=== PATIENT | male | born 1975 | race Two or more races ===

== ENCOUNTER 2018-02-10 16:13 | Emergency (ER) | payer OTHER ==
[2018-02-10 16:30] VITALS: TEMP 97.9
[2018-02-10 16:30] LABS: Glucose,Whole Blood 97 mg/dL (75-99)
[2018-02-10] MEDS ORDERED: SODIUM CHLORIDE 0.9% 500 ML IV STA (16:31)
--- NOTE | 2018-02-10 17:27 | ED ---
Recheck HPI - General Chief Complaint: Recheck/Abnormal Lab/Rx Stated Complaint: Hypoglycemia Time Seen by Provider: 02/10/18 16:23 Source: patient, RN notes reviewed, old records reviewed Mode of arrival: EMS Limitations: no limitations - History of Present Illness Initial Comments: 42-year-old male present emergency department today after being found in the bathroom unresponsive. Apparently patient fell going to the bathroom. He is diabetic. He uses insulin. He was found to have a low blood sugar. He reports that he fell and hit his head. He does not remember this. He does have a contusion over the forehead. He has had no other symptoms. He is feeling somewhat better at this time after receiving an amp of D50 from EMS. Blood sugar on arrival here is 97. Given a sandwich. - Related Data Home Medications Medication Instructions Recorded Confirmed INSULIN LISPRO (HumaLOG) [HumaLOG] 16 units SQ AC-TID 02/10/18 02/10/18 INSULIN LISPRO (HumaLOG) [HumaLOG] See Protocol SQ AC-TID 02/10/18 02/10/18 Insulin Glargine,Hum.rec.anlog 100 unit SQ HS 02/10/18 02/10/18 [Basaglar Kwikpen U-100] metFORMIN HCL [Glucophage] 500 mg PO BID 02/10/18 02/10/18 Allergies Allergy/AdvReac Type Severity Reaction Status Date / Time No Known Allergies Allergy Verified 02/10/18 17:19 Review of Systems ROS Statement: Those systems with pertinent positive or pertinent negative responses have been documented in the HPI. ROS Other: All systems not noted in ROS Statement are negative. Past Medical History Past Medical History: Diabetes Mellitus, Liver Disease Additional Past Medical History / Comment(s): liver cirrhosis, pancreatitis History of Any Multi-Drug Resistant Organisms: None Reported Past Surgical History: Orthopedic Surgery Past Psychological History: No Psychological Hx Reported Smoking Status: Never smoker Past Alcohol Use History: None Reported Past Drug Use History: None Reported General Exam - General Exam Comments Initial Comments: 42-year-old male. Patient is alert. Limitations: no limitations General appearance: alert, in no apparent distress Head exam: Present: atraumatic, normocephalic, normal inspection, other ( Incision over the forehead.) Eye exam: Present: normal appearance, PERRL, EOMI. Absent: scleral icterus, conjunctival injection, periorbital swelling ENT exam: Present: normal exam, mucous membranes moist Neck exam: Present: normal inspection. Absent: tenderness, meningismus, lymphadenopathy Respiratory exam: Present: normal lung sounds bilaterally. Absent: respiratory distress, wheezes, rales, rhonchi, stridor Cardiovascular Exam: Present: regular rate, normal rhythm, normal heart sounds. Absent: systolic murmur, diastolic murmur, rubs, gallop, clicks GI/Abdominal exam: Present: soft, normal bowel sounds. Absent: distended, tenderness, guarding, rebound, rigid Extremities exam: Present: normal inspection, full ROM, normal capillary refill. Absent: tenderness, pedal edema, joint swelling, calf tenderness Back exam: Present: normal inspection Neurological exam: Present: alert, oriented X3, CN II-XII intact Psychiatric exam: Present: normal affect, normal mood Skin exam: Present: warm, dry, intact, normal color. Absent: rash Course Vital Signs 02/10/18 02/10/18 02/10/18 16:22 18:41 19:56 Temperature 97.9 F 97.9 F Pulse Rate 84 80 70 Respiratory 16 16 18 Rate Blood Pressure 123/79 120/66 135/92 O2 Sat by Pulse 98 97 100 Oximetry Medical Decision Making - Medical Decision Making 42-year-old male with type 2 diabetes on insulin and metformin presents emergency Department after a low blood sugar episode. He was found on the floor of his job after going to the bathroom. Patient does have a contusion over his forehead. He does not remember falling what happened prior to being in the ambulance. MSK midabdomen amp of D50. Blood sugar 97. Further workup was initiated this could be related to another cell causes from patient's syncopal episode besides low blood sugar. We troponin was negative. EKG shows no acute abdomen or maladies. CT scan was performed and negative for any acute process. Patient does have history of liver disease. Low platelets and elevated liver enzymes. He does have a history of cirrhosis. He reports that he is aware of the symptoms. He follows with his PCP in regards to this. The cement discussed he is stable for discharge. Discussed he needs follow-up with PCP in regards to low blood sugars is also cirrhosis and chronically low platelets. Patient agrees to this. Discussed changing his insulin routine at this time to 10-12 units plus sliding scale for mealtimes and senna 15 units. Patient agrees to treatment plan will comply. Return parameters were discussed. - Lab Data Result diagrams: 02/10/18 17:31 02/10/18 17:31 Lab Results 02/10/18 02/10/18 02/10/18 Range/Units 16:28 17:31 17:31 WBC 2.8 L (3.8-10.6) k/uL RBC 3.61 L (4.30-5.90) m/uL Hgb 12.4 L (13.0-17.5) gm/dL Hct 36.6 L (39.0-53.0) % MCV 101.4 H (80.0-100.0) fL MCH 34.2 (25.0-35.0) pg MCHC 33.8 (31.0-37.0) g/dL RDW 14.4 (11.5-15.5) % Plt Count 36 L* (150-450) k/uL Neutrophils % 60 % Lymphocytes % 24 % Monocytes % 10 % Eosinophils % 1 % Basophils % 1 % Neutrophils # 1.7 (1.3-7.7) k/uL Lymphocytes # 0.7 L (1.0-4.8) k/uL Monocytes # 0.3 (0-1.0) k/uL Eosinophils # 0.0 (0-0.7) k/uL Basophils # 0.0 (0-0.2) k/uL Macrocytosis Slight Sodium 143 (137-145) mmol/L Potassium 3.7 (3.5-5.1) mmol/L Chloride 108 H (98-107) mmol/L Carbon Dioxide 20 L (22-30) mmol/L Anion Gap 15 mmol/L BUN 9 (9-20) mg/dL Creatinine 0.30 L (0.66-1.25) mg/dL Est GFR (CKD-EPI)AfAm >90 (>60 ml/min/1.73 sqM) Est GFR (CKD-EPI)NonAf >90 (>60 ml/min/1.73 sqM) Glucose 43 L* (74-99) mg/dL POC Glucose (mg/dL) 97 (75-99) mg/dL POC Glu Contracting Analyst ID Calcium 9.1 (8.4-10.2) mg/dL Magnesium 1.5 L (1.6-2.3) mg/dL Total Bilirubin 1.1 (0.2-1.3) mg/dL AST 143 H (17-59) U/L ALT 82 H (21-72) U/L Alkaline Phosphatase 208 H (38-126) U/L Troponin I (0.000-0.034) ng/mL Total Protein 7.1 (6.3-8.2) g/dL Albumin 3.8 (3.5-5.0) g/dL 02/10/18 02/10/18 02/10/18 Range/Units 17:31 18:08 18:30 WBC (3.8-10.6) k/uL RBC (4.30-5.90) m/uL Hgb (13.0-17.5) gm/dL Hct (39.0-53.0) % MCV (80.0-100.0) fL MCH (25.0-35.0) pg MCHC (31.0-37.0) g/dL RDW (11.5-15.5) % Plt Count (150-450) k/uL Neutrophils % % Lymphocytes % % Monocytes % % Eosinophils % % Basophils % % Neutrophils # (1.3-7.7) k/uL Lymphocytes # (1.0-4.8) k/uL Monocytes # (0-1.0) k/uL Eosinophils # (0-0.7) k/uL Basophils # (0-0.2) k/uL Macrocytosis Sodium (137-145) mmol/L Potassium (3.5-5.1) mmol/L Chloride (98-107) mmol/L Carbon Dioxide (22-30) mmol/L Anion Gap mmol/L BUN (9-20) mg/dL Creatinine (0.66-1.25) mg/dL Est GFR (CKD-EPI)AfAm (>60 ml/min/1.73 sqM) Est GFR (CKD-EPI)NonAf (>60 ml/min/1.73 sqM) Glucose (74-99) mg/dL POC Glucose (mg/dL) 58 L 73 L (75-99) mg/dL POC Glu Contracting Analyst ID Anamaria Alcaraz Calcium (8.4-10.2) mg/dL Magnesium (1.6-2.3) mg/dL Total Bilirubin (0.2-1.3) mg/dL AST (17-59) U/L ALT (21-72) U/L Alkaline Phosphatase (38-126) U/L Troponin I <0.012 (0.000-0.034) ng/mL Total Protein (6.3-8.2) g/dL Albumin (3.5-5.0) g/dL 02/10/18 Range/Units 19:16 WBC (3.8-10.6) k/uL RBC (4.30-5.90) m/uL Hgb (13.0-17.5) gm/dL Hct (39.0-53.0) % MCV (80.0-100.0) fL MCH (25.0-35.0) pg MCHC (31.0-37.0) g/dL RDW (11.5-15.5) % Plt Count (150-450) k/uL Neutrophils % % Lymphocytes % % Monocytes % % Eosinophils % % Basophils % % Neutrophils # (1.3-7.7) k/uL Lymphocytes # (1.0-4.8) k/uL Monocytes # (0-1.0) k/uL Eosinophils # (0-0.7) k/uL Basophils # (0-0.2) k/uL Macrocytosis Sodium (137-145) mmol/L Potassium (3.5-5.1) mmol/L Chloride (98-107) mmol/L Carbon Dioxide (22-30) mmol/L Anion Gap mmol/L BUN (9-20) mg/dL Creatinine (0.66-1.25) mg/dL Est GFR (CKD-EPI)AfAm (>60 ml/min/1.73 sqM) Est GFR (CKD-EPI)NonAf (>60 ml/min/1.73 sqM) Glucose (74-99) mg/dL POC Glucose (mg/dL) 121 H (75-99) mg/dL POC Glu Contracting Analyst ID Arft, Bill Calcium (8.4-10.2) mg/dL Magnesium (1.6-2.3) mg/dL Total Bilirubin (0.2-1.3) mg/dL AST (17-59) U/L ALT (21-72) U/L Alkaline Phosphatase (38-126) U/L Troponin I (0.000-0.034) ng/mL Total Protein (6.3-8.2) g/dL Albumin (3.5-5.0) g/dL 02/10/18 19:39 EKG performed at 1650 shows a sinus rhythm with sinus arrhythmia. Normal EKG. Ventricular rate of 69 bpm. SC interval 168 ms. QRS duration 76. QT QTc is 446/477 ms. - Radiology Data Radiology results: report reviewed CT brain and C-spine is negative for any acute process. Chest x-ray shows low respiratory volume. No evidence of any other acute medical problem changes. Disposition Clinical Impression: Hypoglycemia, Thrombocytopenia, Macrocytic anemia Disposition: HOME SELF-CARE Condition: Good Additional Instructions: Patient has a follow-up with primary care provider regards low platelet count macrocytic anemia. Recommended taking a daily multivitamin. Patient should adjust sliding scale. Recommended maybe taking 12-10 units of insulin ingesting with sliding scale. Return to the emergency department if any alarming signs or symptoms occur. Is patient prescribed a controlled substance at d/c from ED?: No If prescribed controlled substance>3 days was MAPS reviewed?: No When asked, does pt state using other controlled substances?: No Referrals: Mike Nickerson DO [Primary Care Provider] - 1-2 days Time of Disposition: 19:32
[2018-02-10 17:57] LABS: Eosinophils % (A) 1 %; Macrocytosis Slight
[2018-02-10 18:02] LABS: Basophils % (A) 1 %; HCT 36.6 % (39.0-53.0); HGB 12.4 gm/dL (13.0-17.5); Lymphocytes # (A) 0.7 k/uL (1.0-4.8); Lymphocytes % (A) 24 %; MCH 34.2 pg (25.0-35.0); MCHC 33.8 g/dL (31.0-37.0); MCV 101.4 fL (80.0-100.0); Mean Platelet Volume 7.7; Monocytes # (A) 0.3 k/uL (0-1.0); Monocytes % (A) 10 %; Neutrophils # (A) 1.7 k/uL (1.3-7.7); Neutrophils % (A) 60 %; RBC 3.61 m/uL (4.30-5.90); RDW 14.4 % (11.5-15.5); WBC 2.8 k/uL (3.8-10.6)
[2018-02-10 18:03] LABS: ALT 82 U/L (21-72); AST 143 U/L (17-59); Albumin 3.8 g/dL (3.5-5.0); Alkaline Phosphatase 208 U/L (38-126); Anion Gap 15 mmol/L; Blood Urea Nitrogen 9 mg/dL (9-20); Calcium 9.1 mg/dL (8.4-10.2); Carbon Dioxide 20 mmol/L (22-30); Chloride 108 mmol/L (98-107); Magnesium 1.5 mg/dL (1.6-2.3); Potassium 3.7 mmol/L (3.5-5.1); Sodium 143 mmol/L (137-145); Total Bilirubin 1.1 mg/dL (0.2-1.3); Total Protein 7.1 g/dL (6.3-8.2)
[2018-02-10 18:06] LABS: Glucose 43 mg/dL (74-99)
[2018-02-10 18:10] LABS: Glucose,Whole Blood 58 mg/dL (75-99)
[2018-02-10 18:11] LABS: Platelet Count 36 k/uL (150-450)
--- NOTE | 2018-02-10 18:27 | CT ---
EXAMINATION TYPE: CT brain wo con DATE OF EXAM: 02/10/2018 COMPARISON: NONE HISTORY: 42-year-old male complains of syncopal episode and abrasion midline frontal bone. TECHNIQUE: Examination was done in axial plane without intravenous contrast. Coronal and sagittal r econstructions performed. CT DLP: 1082 mGycm Automated exposure control for dose reduction was used. FINDINGS: There is no evidence of acute intracranial hemorrhage, acute ischemic changes, mass, mass-effect, or extra-axial fluid collection. There is no effacement of cerebral sulci or basal subarachnoid cister ns. There is no hydrocephalus. There is no midline shift. Martel-white matter distinction is preserv ed. Paranasal sinuses and mastoid air cells are well pneumatized. Orbits and globes are intact. No calvar ial fracture. IMPRESSION: No acute intracranial abnormality seen.
[2018-02-10 18:31] LABS: Glucose,Whole Blood 73 mg/dL (75-99)
--- NOTE | 2018-02-10 18:56 | XR ---
EXAMINATION TYPE: XR chest 2V DATE OF EXAM: 02/10/2018 COMPARISON: None HISTORY: 42-year-old male with syncope TECHNIQUE: Frontal and lateral views FINDINGS: Heart upper limits of normal in size. Mild hypoventilatory changes with crowded vascular markings. Mi ld interstitial prominence as a chronic appearance. Some strandy atelectasis at the left base. No con solidation or pleural effusion. IMPRESSION: Hypoventilatory and some chronic appearing changes. No acute process seen.
[2018-02-10 19:18] LABS: Glucose,Whole Blood 121 mg/dL (75-99)
[2018-02-10 19:57] VITALS: BP 135/92; PULSE 70; RESP 18
[2018-02-11 01:03] LABS: Hemoglobin A1C 8.2 % (4.0-6.0)
== END 2018-02-10 19:57 | disposition home or self-care (01) ==
LOC: EC 16:13 → SUPCPDRO 16:13 → EC 19:57
DX: S09.90XA Unspecified injury of head, initial encounter (principal); E11.649 Type 2 diabetes mellitus with hypoglycemia without coma; D69.6 Thrombocytopenia, unspecified; D53.9 Nutritional anemia, unspecified; Z79.4 Long term (current) use of insulin; W19.XXXA Unspecified fall, initial encounter; Y92.009 Unspecified place in unspecified non-institutional (private) residence as the place of occurrence of the external cause
CPT/HCPCS: 36415; 70450; 71046; 80053; 83036; 83735; 84484; 85025; 93005; 96360; 96361; 99285

== ENCOUNTER 2018-06-13 07:11 | Emergency (ER) | payer OTHER ==
[2018-06-13 07:25] VITALS: RESP 18
[2018-06-13] MEDS ORDERED: SODIUM CHLORIDE 0.9% 1,000 ML IV STA (07:29)
--- NOTE | 2018-06-13 07:48 | ED ---
Abdominal Pain HPI - General Chief Complaint: Abdominal Pain Stated Complaint: Stomach pain Time Seen by Provider: 06/13/18 07:27 Source: patient, RN notes reviewed, old records reviewed Mode of arrival: ambulatory Limitations: no limitations - History of Present Illness Initial Comments: Patient is a 43-year-old male presents emergency department today with chief complaint of diarrhea, and left lower quadrant abdominal pain for the past week. 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 He does occasionally drink from a garden hose. No bloody stools. He states these had no fevers or chills. Denies any nausea or vomiting. Patient states that he's had increased gas as well. He denies any chest pain, shortness of breath. He denies any back pain. - Related Data Home Medications Medication Instructions Recorded Confirmed INSULIN LISPRO (HumaLOG) [HumaLOG] 16 units SQ AC-TID 02/10/18 02/10/18 INSULIN LISPRO (HumaLOG) [HumaLOG] See Protocol SQ AC-TID 02/10/18 02/10/18 Insulin Glargine,Hum.rec.anlog 100 unit SQ HS 02/10/18 02/10/18 [Basaglar Kwikpen U-100] metFORMIN HCL [Glucophage] 500 mg PO BID 02/10/18 02/10/18 Allergies Allergy/AdvReac Type Severity Reaction Status Date / Time No Known Allergies Allergy Verified 06/13/18 07:25 Review of Systems ROS Statement: Those systems with pertinent positive or pertinent negative responses have been documented in the HPI. ROS Other: All systems not noted in ROS Statement are negative. Past Medical History Past Medical History: Diabetes Mellitus, Liver Disease Additional Past Medical History / Comment(s): liver cirrhosis, pancreatitis, hep C History of Any Multi-Drug Resistant Organisms: None Reported Past Surgical History: Orthopedic Surgery Past Psychological History: No Psychological Hx Reported Smoking Status: Never smoker Past Alcohol Use History: None Reported Past Drug Use History: None Reported General Exam - General Exam Comments Initial Comments: 43-year-old male. Alert and oriented. No acute distress. Limitations: no limitations General appearance: alert, in no apparent distress Head exam: Present: atraumatic, normocephalic, normal inspection Eye exam: Present: normal appearance, PERRL, EOMI. Absent: scleral icterus, conjunctival injection, periorbital swelling ENT exam: Present: normal exam, mucous membranes moist Neck exam: Present: normal inspection. Absent: tenderness, meningismus, lymphadenopathy Respiratory exam: Present: normal lung sounds bilaterally. Absent: respiratory distress, wheezes, rales, rhonchi, stridor Cardiovascular Exam: Present: regular rate, normal rhythm, normal heart sounds. Absent: systolic murmur, diastolic murmur, rubs, gallop, clicks GI/Abdominal exam: Present: soft, tenderness (Left lower quadrant tenderness), normal bowel sounds. Absent: distended, guarding, rebound, rigid Extremities exam: Present: normal inspection Back exam: Present: normal inspection Neurological exam: Present: alert, oriented X3, CN II-XII intact Psychiatric exam: Present: normal affect, normal mood Skin exam: Present: warm, dry, intact, normal color. Absent: rash Course Vital Signs 06/13/18 07:21 Temperature 98.2 F Pulse Rate 82 Respiratory 18 Rate Blood Pressure 116/84 O2 Sat by Pulse 100 Oximetry Medical Decision Making - Medical Decision Making Patient's a 43-year-old male with a history of diarrhea for the past week. He reports some lower left-sided abdominal pain and tenderness. He does have a history of cirrhosis from EtOH and hepatitis C. Patient reports he has not followed up with GI specialist regards to diagnosis and treatment for hep C. Patient labwork was reviewed today. He does seem to be pancytopenic.White blood cell count is 2.0. Red blood cell count 3.61. Hemoglobin of 12.6. Platelet count is 33. INR is 1.3. Potassium of 3.4. Skin infections preserved BUN of 9 creatinine 3.8. Blood sugars 174. He is diabetic. AST is 107. ALT 68. ALP is 2:30. He has low protein of 5.6. Patient's urinalysis is negative for any acute process. He did give us a stool sample. It's a negative for blood. Patient's stool did seem to be white in color. Likely reflection from cirrhosis. With the abdominal tenderness we did complete a computed tomography scan. Computed tomography scan shows evidence of cirrhosis and sequela of cirrhosis with splenomegaly and renal hypertension. There is also some evidence of enteritis. I discussed at this time the Patient is to follow-up with GI specialist in regards to hepatitis C, as well as oncologist and primary care physician. Patient needs to have further evaluation due to the pancytopenia. Patient agrees to treatment plan. Given the fact the left distal sample wait for any positive cultures to start the Patient on antibiotic. Patient agrees to treatment plan will comply. Return parameters were discussed. - Lab Data Result diagrams: 06/13/18 08:00 06/13/18 08:00 Lab Results 06/13/18 06/13/18 06/13/18 Range/Units 08:00 08:00 08:00 WBC 2.0 L (3.8-10.6) k/uL RBC 3.61 L (4.30-5.90) m/uL Hgb 12.6 L (13.0-17.5) gm/dL Hct 37.5 L (39.0-53.0) % MCV 103.7 H (80.0-100.0) fL MCH 35.0 (25.0-35.0) pg MCHC 33.7 (31.0-37.0) g/dL RDW 16.0 H (11.5-15.5) % Plt Count 33 L (150-450) k/uL Neutrophils % (Manual) 27 % Lymphocytes % (Manual) 45 % Monocytes % (Manual) 25 % Eosinophils % (Manual) 3 % Neutrophils # (Manual) 0.54 L (1.3-7.7) k/uL Lymphocytes # (Manual) 0.90 L (1.0-4.8) k/uL Monocytes # (Manual) 0.50 (0-1.0) k/uL Eosinophils # (Manual) 0.06 (0-0.7) k/uL Nucleated RBCs 0 (0-0) /100 WBC Manual Slide Review Performed Anisocytosis Slight Macrocytosis Moderate PT 11.9 (9.0-12.0) sec INR 1.3 H (<1.2) APTT 24.0 (22.0-30.0) sec Sodium 142 (137-145) mmol/L Potassium 3.4 L (3.5-5.1) mmol/L Chloride 111 H (98-107) mmol/L Carbon Dioxide 23 (22-30) mmol/L Anion Gap 8 mmol/L BUN 9 (9-20) mg/dL Creatinine 0.38 L (0.66-1.25) mg/dL Est GFR (CKD-EPI)AfAm >90 (>60 ml/min/1.73 sqM) Est GFR (CKD-EPI)NonAf >90 (>60 ml/min/1.73 sqM) Glucose 174 H (74-99) mg/dL Calcium 8.3 L (8.4-10.2) mg/dL Total Bilirubin 1.1 (0.2-1.3) mg/dL AST 107 H (17-59) U/L ALT 68 (21-72) U/L Alkaline Phosphatase 230 H (38-126) U/L Total Protein 5.6 L (6.3-8.2) g/dL Albumin 2.8 L (3.5-5.0) g/dL Amylase 43 (30-110) U/L Lipase 54 (23-300) U/L Urine Color Urine Appearance (Clear) Urine pH (5.0-8.0) Ur Specific Sandborn (1.001-1.035) Urine Protein (Negative) Urine Glucose (UA) (Negative) Urine Ketones (Negative) Urine Blood (Negative) Urine Nitrite (Negative) Urine Bilirubin (Negative) Urine Urobilinogen (<2.0) mg/dL Ur Leukocyte Esterase (Negative) Urine RBC (0-5) /hpf Urine WBC (0-5) /hpf Calcium Oxalate Crystal (None) /hpf Urine Mucus (None) /hpf Stool Occult Blood (Negative) 06/13/18 06/13/18 Range/Units 08:00 08:00 WBC (3.8-10.6) k/uL RBC (4.30-5.90) m/uL Hgb (13.0-17.5) gm/dL Hct (39.0-53.0) % MCV (80.0-100.0) fL MCH (25.0-35.0) pg MCHC (31.0-37.0) g/dL RDW (11.5-15.5) % Plt Count (150-450) k/uL Neutrophils % (Manual) % Lymphocytes % (Manual) % Monocytes % (Manual) % Eosinophils % (Manual) % Neutrophils # (Manual) (1.3-7.7) k/uL Lymphocytes # (Manual) (1.0-4.8) k/uL Monocytes # (Manual) (0-1.0) k/uL Eosinophils # (Manual) (0-0.7) k/uL Nucleated RBCs (0-0) /100 WBC Manual Slide Review Anisocytosis Macrocytosis PT (9.0-12.0) sec INR (<1.2) APTT (22.0-30.0) sec Sodium (137-145) mmol/L Potassium (3.5-5.1) mmol/L Chloride (98-107) mmol/L Carbon Dioxide (22-30) mmol/L Anion Gap mmol/L BUN (9-20) mg/dL Creatinine (0.66-1.25) mg/dL Est GFR (CKD-EPI)AfAm (>60 ml/min/1.73 sqM) Est GFR (CKD-EPI)NonAf (>60 ml/min/1.73 sqM) Glucose (74-99) mg/dL Calcium (8.4-10.2) mg/dL Total Bilirubin (0.2-1.3) mg/dL AST (17-59) U/L ALT (21-72) U/L Alkaline Phosphatase (38-126) U/L Total Protein (6.3-8.2) g/dL Albumin (3.5-5.0) g/dL Amylase (30-110) U/L Lipase (23-300) U/L Urine Color Yellow Urine Appearance Cloudy (Clear) Urine pH 5.5 (5.0-8.0) Ur Specific Sandborn 1.022 (1.001-1.035) Urine Protein Trace H (Negative) Urine Glucose (UA) Negative (Negative) Urine Ketones Negative (Negative) Urine Blood Negative (Negative) Urine Nitrite Negative (Negative) Urine Bilirubin Negative (Negative) Urine Urobilinogen 4.0 (<2.0) mg/dL Ur Leukocyte Esterase Negative (Negative) Urine RBC <1 (0-5) /hpf Urine WBC 2 (0-5) /hpf Calcium Oxalate Crystal Occasional H (None) /hpf Urine Mucus Few H (None) /hpf Stool Occult Blood Negative (Negative) - Radiology Data Radiology results: report reviewed CT shows cirrhotic appearance of the liver. Further clinical correlation work up is recommended. No findings for a patio 1. Additional finding should just portal venous hypertension given splenomegaly and mild abdominal pelvic ascites. Probable splenorenal shunt. There is also some prominent fluid- filled small bowel loops within the right side of the abdomen. Likely enteritis. Disposition Clinical Impression: Cirrhosis, Pancytopenia, Splenomegaly, Enteritis Disposition: HOME SELF-CARE Condition: Good Instructions: Cirrhosis (ED), Pancytopenia (DC) Additional Instructions: Patient has a close follow-up with primary care physician. Return to the emergency department if any alarming signs or symptoms occur. Patient should follow-up with GI specialist regards to treatment for hepatitis C as well as following up with blood specialist. Is patient prescribed a controlled substance at d/c from ED?: No Referrals: Mike Nickerson DO [Primary Care Provider] - 1-2 days Jaskaran Palma MD [STAFF PHYSICIAN] - 1-2 days Nathalia Trevino MD [STAFF PHYSICIAN] - 1-2 days Time of Disposition: 10:44
[2018-06-13 08:39] LABS: Appearance,Urine Cloudy (Clear); Bilirubin,Urine Negative (Negative); Blood,Urine Negative (Negative); Calcium Oxalate Crystals,Urine Occasional /hpf; Color,Urine Yellow; Glucose,Urine (UA) Negative (Negative); Ketones,Urine Negative (Negative); Leukocyte Esterase,Urine Negative (Negative); Mucus,Urine Few /hpf; Nitrite,Urine Negative (Negative); PH, Urine 5.5 (5.0-8.0); Protein,Urine Trace (Negative); RBC,Urine <1 /hpf (0-5); Specific Gravity,Urine 1.022 (1.001-1.035); WBC,Urine 2 /hpf (0-5)
--- NOTE | 2018-06-13 08:39 | XR ---
EXAMINATION TYPE: XR KUB DATE OF EXAM: 06/13/2018 CLINICAL DATA: 43-year-old male with lower abdominal pain, PHH COMPARISON: None FINDINGS: Lung bases are clear. No evidence for free intraperitoneal air. No dilated small bowel or air-fluid levels. Scattered air and stool seen throughout the colon extendi ng distally into the rectum. There is moderate stool burden. No suspicious calcifications identified. IMPRESSION: 1. Moderate stool burden. Correlate for constipation. 2.No evidence of bowel obstruction or free intraperitoneal air.
[2018-06-13 08:47] LABS: ALT 68 U/L (21-72); AST 107 U/L (17-59); Albumin 2.8 g/dL (3.5-5.0); Alkaline Phosphatase 230 U/L (38-126); Amylase 43 U/L (30-110); Anion Gap 8 mmol/L; Blood Urea Nitrogen 9 mg/dL (9-20); Calcium 8.3 mg/dL (8.4-10.2); Carbon Dioxide 23 mmol/L (22-30); Chloride 111 mmol/L (98-107); Glucose 174 mg/dL (74-99); INR 1.3 (<1.2); Lipase 54 U/L (23-300); Potassium 3.4 mmol/L (3.5-5.1); Prothrombin Time 11.9 sec (9.0-12.0); Sodium 142 mmol/L (137-145); Total Bilirubin 1.1 mg/dL (0.2-1.3); Total Protein 5.6 g/dL (6.3-8.2)
[2018-06-13 09:01] LABS: Anisocytosis Slight; HCT 37.5 % (39.0-53.0); HGB 12.6 gm/dL (13.0-17.5); MCHC 33.7 g/dL (31.0-37.0); MCV 103.7 fL (80.0-100.0); Macrocytosis Moderate; Mean Platelet Volume 8.9; RBC 3.61 m/uL (4.30-5.90)
[2018-06-13 09:18] LABS: Eosinophils # (M) 0.06 k/uL (0-0.7); Neutrophils # (M) 0.54 k/uL (1.3-7.7); Neutrophils % (M) 27 %; Nucleated Red Blood Cells 0 /100 WBC (0-0); Total Cells Counted 100
[2018-06-13 09:19] LABS: Platelet Count 33 k/uL (150-450)
--- NOTE | 2018-06-13 10:04 | CT ---
EXAMINATION TYPE: CT abdomen pelvis w con DATE OF EXAM: 06/13/2018 COMPARISON: NONE HISTORY: 43-year-old male LLQ pain, with diarrhea TECHNIQUE: Contiguous axial scanning of the abdomen and pelvis following administration of 100 ml Iso yaima 300 IV contrast. Delayed images through the kidneys and coronal/sagittal reconstructions perform ed. CT DLP: 1286 mGycm Automated exposure control for dose reduction was used. FINDINGS: Heart normal size without pericardial effusion. Some strandy areas of atelectasis in the lower lungs without pleural effusion. There may be subtle contour nodularity of the liver which is upper limits of normal in size at 17.2 c m. No focal liver lesion is identified. Circumferential gallbladder wall thickening without abnormal gallbladder distention. Portal venous system appears patent. No biliary ductal dilatation. Tiny hiatal hernia. Mild splenomegaly at 14.4 cm possible splenorenal shunt. Trace upper abdominal ascites fluid. Mildly enlarged portacaval and ryan hepatic lymph nodes measuring up to 1.5 cm likely reactive. Num erous nonenlarged retroperitoneal lymph nodes. No dilated small bowel or free air. Prominent fluid-filled small bowel loops are present in the right side of the abdomen. Moderate fatty stool is present. Bladder nondistended. No pelvic lymphadenopathy seen. There is [id number] ascites fluid trackin g down into the pelvis. Bones: Mild degenerative changes at the hips. There is right L5 hemisacralization noted and degenerat ernesto disc disease at the level above at L4-L5. Mild degenerative disc disease visualized lower thoraci c spine as well. IMPRESSION: 1. CIRRHOTIC APPEARANCE TO THE LIVER. FURTHER CLINICAL CORRELATION AND WORKUP IS RECOMMENDED. NO CONV INCING FINDINGS OF HEPATOMA. 2. ADDITIONAL FINDINGS SUGGEST PORTAL VENOUS HYPERTENSION GIVEN SPLENOMEGALY (14.4 CM) AND MILD ABDOM INOPELVIC ASCITES. PROBABLE SPLENORENAL SHUNT. 3. SOME PROMINENT FLUID-FILLED SMALL BOWEL LOOPS IN THE RIGHT SIDE OF THE ABDOMEN. POSSIBLE ENTERIT IS.
[2018-06-13 11:05] VITALS: BP 124/92; PULSE 77; TEMP 97.8
== END 2018-06-13 11:07 | disposition home or self-care (01) ==
LOC: EC 07:11
DX: K74.60 Unspecified cirrhosis of liver (principal); D61.818 Other pancytopenia; R16.1 Splenomegaly, not elsewhere classified; K52.9 Noninfective gastroenteritis and colitis, unspecified; E11.9 Type 2 diabetes mellitus without complications; Z86.19 Personal history of other infectious and parasitic diseases; Z79.4 Long term (current) use of insulin
CPT/HCPCS: 36415; 80053; 82150; 83690; 85025; 85610; 85730; 82272; 81001; 87045; 83630; 87046; 74018; 74177; 99285; 96360; Q9967

== ENCOUNTER → 2018-07-11 | Outpatient (CLI) | payer OTHER ==
--- NOTE | 2018-07-11 07:43 | US ---
EXAMINATION TYPE: US liver DATE OF EXAM: 07/11/2018 COMPARISON: CT dated 06/13/2018 CLINICAL HISTORY: R94.5 Abnormal results of liver function studies. EXAM MEASUREMENTS: Liver Length: 10.5 x 4.7 x 6.1 cm Gallbladder Wall: 0.5 cm CBD: 0.3 cm Right Kidney: 10.5 x 4.7 x 6.1 cm Pancreas: Obscured Liver: Increased attenuation with coarsened echotexture diffusely that limits evaluation for underly ing hepatic masses, upper limits of normal in size Gallbladder: thickened wall, stone Evidence for sonographic Mina's sign: No CBD: wnl Right Kidney: Inferior pole obscured by overlying bowel gas IMPRESSION: 1. Gallbladder findings that likely relate to adjacent hepatocellular disease such as gallbladder wal l thickening and pericholecystic fluid with cholelithiasis seen. Alternatively this could relate to d eveloping cholecystitis and therefore correlation with serum laboratory values trended and focal pain is recommended. 2. Coarsened echotexture of the hepatic parenchyma relating to the patient's known underlying hepatoc ellular disease. No focal masses seen on today's examination. 3. Obscuration of the pancreas by overlying bowel gas.
[2018-07-11 08:01] LABS: HCT 46.1 % (39.0-53.0); HGB 15.1 gm/dL (13.0-17.5); MCH 34.9 pg (25.0-35.0); MCHC 32.8 g/dL (31.0-37.0); MCV 106.6 fL (80.0-100.0); Macrocytosis Moderate; Mean Platelet Volume 8.5; RBC 4.33 m/uL (4.30-5.90); RDW 13.9 % (11.5-15.5); WBC 2.3 k/uL (3.8-10.6)
[2018-07-11 08:03] LABS: Platelet Count 51 k/uL (150-450)
[2018-07-11 08:14] LABS: ALT 138 U/L (21-72); AST 232 U/L (17-59); Alkaline Phosphatase 407 U/L (38-126); Anion Gap 12 mmol/L; Blood Urea Nitrogen 13 mg/dL (9-20); Calcium 9.9 mg/dL (8.4-10.2); Carbon Dioxide 31 mmol/L (22-30); Chloride 93 mmol/L (98-107); Glucose 456 mg/dL (74-99); Potassium 5.4 mmol/L (3.5-5.1); Sodium 136 mmol/L (137-145); Total Bilirubin 2.3 mg/dL (0.2-1.3); Total Protein 7.4 g/dL (6.3-8.2)
[2018-07-11 09:10] LABS: Band Neutrophils % 1 %; Eosinophils # (M) 0.05 k/uL (0-0.7); Lymphocytes # (M) 0.99 k/uL (1.0-4.8); Monocytes # (M) 0.35 k/uL (0-1.0); Neutrophils % (M) 39 %; Nucleated Red Blood Cells 0 /100 WBC (0-0); Poikilocytosis (M) Present; Total Cells Counted 100
[2018-07-11 16:21] LABS: Iron Saturation 97.11 (15.00-50.00)
[2018-07-11 16:28] LABS: Alpha Fetoprotein, Tumor Mkr 6.7 ng/mL (0.0-7.9)
== END | disposition home or self-care (01) ==
LOC: RADUSWWP 06:42
PROVIDERS: ATTEND Internal Medicine Gastroenterology
DX: K80.20 Calculus of gallbladder without cholecystitis without obstruction (principal); K82.8 Other specified diseases of gallbladder; K76.9 Liver disease, unspecified; R94.5 Abnormal results of liver function studies; Z86.19 Personal history of other infectious and parasitic diseases
CPT/HCPCS: 36415; 76705; 80053; 82105; 82728; 83540; 83550; 85025; 86038; 87522

== ENCOUNTER 2018-08-04 20:56 | Emergency (ER) | payer OTHER ==
[2018-08-04 21:04] VITALS: TEMP 97.7
--- NOTE | 2018-08-04 21:58 | ED ---
General Adult HPI - General Chief complaint: Extremity Problem,Nontraumatic Stated complaint: knee pain Time Seen by Provider: 08/04/18 21:26 Source: patient Mode of arrival: ambulatory Limitations: no limitations - History of Present Illness Initial comments: 43-year-old male patient presents to the emergency department today for evaluation of bilateral lower extremity swelling and scrotal swelling. Patient states that this has been getting worse over the last 2 days. Patient denies any history of similar symptoms. He denies any shortness of breath, chest pain , or dyspnea with activity. Patient does have history of type 2 diabetes for which she takes insulin. He also reports history of hepatitis C. Patient states that he feels like his abdomen is becoming larger as well. States he has been having a lot of flatulence. He denies any injury to the extremities. Denies any numbness or tingling. Patient denies any recent rash, fever, chills, abdominal pain, nausea, vomiting, diarrhea, constipation, back pain, numbness, tingling, dizziness, weakness, hematuria, dysuria, urinary urgency, urinary frequency, headache, visual changes, or any other complaints. - Related Data Home Medications Medication Instructions Recorded Confirmed INSULIN LISPRO (HumaLOG) [HumaLOG] 16 units SQ AC-TID 02/10/18 08/04/18 INSULIN LISPRO (HumaLOG) [HumaLOG] See Protocol SQ AC-TID 02/10/18 08/04/18 Insulin Glargine,Hum.rec.anlog 180 unit SQ HS 02/10/18 08/04/18 [Basaglar Kwikpen U-100] metFORMIN HCL [Glucophage] 500 mg PO BID 02/10/18 08/04/18 Allergies Allergy/AdvReac Type Severity Reaction Status Date / Time No Known Allergies Allergy Verified 08/04/18 21:46 Review of Systems ROS Statement: Those systems with pertinent positive or pertinent negative responses have been documented in the HPI. ROS Other: All systems not noted in ROS Statement are negative. Past Medical History Past Medical History: Diabetes Mellitus, Liver Disease Additional Past Medical History / Comment(s): liver cirrhosis, pancreatitis, hep C History of Any Multi-Drug Resistant Organisms: None Reported Past Surgical History: Orthopedic Surgery Past Psychological History: No Psychological Hx Reported Smoking Status: Never smoker Past Alcohol Use History: None Reported Past Drug Use History: None Reported General Exam Limitations: no limitations General appearance: alert, in no apparent distress, other (This is a well- developed, well-nourished adult male patient in no acute distress. Vital signs upon presentation are temperature 97.7F, pulse 88, respirations 16, blood pressure 126/79, pulse ox 97% on room air.) Eye exam: Present: normal appearance, PERRL, EOMI. Absent: scleral icterus, conjunctival injection, periorbital swelling ENT exam: Present: normal exam, normal oropharynx, mucous membranes moist Respiratory exam: Present: normal lung sounds bilaterally. Absent: respiratory distress, wheezes, rales, rhonchi, stridor Cardiovascular Exam: Present: regular rate, normal rhythm, normal heart sounds. Absent: systolic murmur, diastolic murmur, rubs, gallop, clicks GI/Abdominal exam: Present: soft, normal bowel sounds. Absent: distended, tenderness, guarding, rebound, rigid exam: Present: scrotal swelling (Mild) Extremities exam: Present: full ROM, normal capillary refill, other (Lower extremity swelling, nonpitting, bilateral. Pedal and posttibial pulses 2+ and equal bilaterally.). Absent: normal inspection, tenderness, pedal edema, joint swelling, calf tenderness Back exam: Present: normal inspection Neurological exam: Present: alert, oriented X3, CN II-XII intact Psychiatric exam: Present: normal affect, normal mood Skin exam: Present: warm, dry, intact, normal color. Absent: rash Course Vital Signs 08/04/18 08/04/18 08/05/18 21:00 23:00 00:20 Temperature 97.7 F Pulse Rate 88 78 83 Respiratory 16 18 16 Rate Blood Pressure 126/79 124/88 122/85 O2 Sat by Pulse 97 98 97 Oximetry Medical Decision Making - Medical Decision Making 43-year-old male patient presents the emergency department today for evaluation of swelling to his lower extremities and his scrotum. Physical examination did reveal swelling to the entirety of the bilateral lower extremities. Patient did have mild scrotal and penile swelling. Patient is neurovascularly intact. No evidence of cellulitis. Labs reviewed and did reveal white blood cell count 3.2, hemoglobin 12.0, AST 141, ALT 90, alk phos 333, total protein 6.0, albumin 2.9. Urinalysis is negative for any abnormalities. Did discuss findings and results with the patient. We did discuss this swelling is most likely related to his liver disease. 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 Return parameters discussed in detail. He verbalizes understanding and agrees this plan. - Lab Data Result diagrams: 08/04/18 22:15 08/04/18 22:15 Lab Results 08/04/18 08/04/18 08/04/18 Range/Units 22:15 22:15 22:15 WBC 3.2 L (3.8-10.6) k/uL RBC 3.51 L (4.30-5.90) m/uL Hgb 12.0 L D (13.0-17.5) gm/dL Hct 36.9 L (39.0-53.0) % MCV 105.1 H (80.0-100.0) fL MCH 34.3 (25.0-35.0) pg MCHC 32.6 (31.0-37.0) g/dL RDW 14.3 (11.5-15.5) % Plt Count 47 L (150-450) k/uL Neutrophils % (Manual) 52 % Lymphocytes % (Manual) 37 % Monocytes % (Manual) 9 % Eosinophils % (Manual) 1 % Basophils % (Manual) 1 % Neutrophils # (Manual) 1.66 (1.3-7.7) k/uL Lymphocytes # (Manual) 1.18 (1.0-4.8) k/uL Monocytes # (Manual) 0.29 (0-1.0) k/uL Eosinophils # (Manual) 0.03 (0-0.7) k/uL Basophils # (Manual) 0.03 (0-0.2) k/uL Nucleated RBCs 0 (0-0) /100 WBC Manual Slide Review Performed Macrocytosis Moderate Target Cells Present PT 11.0 (9.0-12.0) sec INR 1.1 (<1.2) APTT 26.7 (22.0-30.0) sec Sodium 137 (137-145) mmol/L Potassium 4.6 (3.5-5.1) mmol/L Chloride 107 (98-107) mmol/L Carbon Dioxide 26 (22-30) mmol/L Anion Gap 4 mmol/L BUN 12 (9-20) mg/dL Creatinine 0.39 L (0.66-1.25) mg/dL Est GFR (CKD-EPI)AfAm >90 (>60 ml/min/1.73 sqM) Est GFR (CKD-EPI)NonAf >90 (>60 ml/min/1.73 sqM) Glucose 90 (74-99) mg/dL Calcium 9.0 (8.4-10.2) mg/dL Total Bilirubin 0.9 (0.2-1.3) mg/dL AST 141 H (17-59) U/L ALT 90 H (21-72) U/L Alkaline Phosphatase 333 H (38-126) U/L Total Protein 6.0 L (6.3-8.2) g/dL Albumin 2.9 L (3.5-5.0) g/dL Urine Color Urine Appearance (Clear) Urine pH (5.0-8.0) Ur Specific [place] (1.001-1.035) Urine Protein (Negative) Urine Glucose (UA) (Negative) Urine Ketones (Negative) Urine Blood (Negative) Urine Nitrite (Negative) Urine Bilirubin (Negative) Urine Urobilinogen (<2.0) mg/dL Ur Leukocyte Esterase (Negative) 08/04/18 Range/Units 22:30 WBC (3.8-10.6) k/uL RBC (4.30-5.90) m/uL Hgb (13.0-17.5) gm/dL Hct (39.0-53.0) % MCV (80.0-100.0) fL MCH (25.0-35.0) pg MCHC (31.0-37.0) g/dL RDW (11.5-15.5) % Plt Count (150-450) k/uL Neutrophils % (Manual) % Lymphocytes % (Manual) % Monocytes % (Manual) % Eosinophils % (Manual) % Basophils % (Manual) % Neutrophils # (Manual) (1.3-7.7) k/uL Lymphocytes # (Manual) (1.0-4.8) k/uL Monocytes # (Manual) (0-1.0) k/uL Eosinophils # (Manual) (0-0.7) k/uL Basophils # (Manual) (0-0.2) k/uL Nucleated RBCs (0-0) /100 WBC Manual Slide Review Macrocytosis Target Cells PT (9.0-12.0) sec INR (<1.2) APTT (22.0-30.0) sec Sodium (137-145) mmol/L Potassium (3.5-5.1) mmol/L Chloride (98-107) mmol/L Carbon Dioxide (22-30) mmol/L Anion Gap mmol/L BUN (9-20) mg/dL Creatinine (0.66-1.25) mg/dL Est GFR (CKD-EPI)AfAm (>60 ml/min/1.73 sqM) Est GFR (CKD-EPI)NonAf (>60 ml/min/1.73 sqM) Glucose (74-99) mg/dL Calcium (8.4-10.2) mg/dL Total Bilirubin (0.2-1.3) mg/dL AST (17-59) U/L ALT (21-72) U/L Alkaline Phosphatase (38-126) U/L Total Protein (6.3-8.2) g/dL Albumin (3.5-5.0) g/dL Urine Color Yellow Urine Appearance Clear (Clear) Urine pH 7.5 (5.0-8.0) Ur Specific [place] 1.016 (1.001-1.035) Urine Protein Negative (Negative) Urine Glucose (UA) Negative (Negative) Urine Ketones Negative (Negative) Urine Blood Negative (Negative) Urine Nitrite Negative (Negative) Urine Bilirubin Negative (Negative) Urine Urobilinogen 2.0 (<2.0) mg/dL Ur Leukocyte Esterase Negative (Negative) Disposition Clinical Impression: Lower extremity edema, Scrotal edema Disposition: HOME SELF-CARE Condition: Good Instructions: Leg Edema (ED) Additional Instructions: Follow up with your classroom coordinator for recheck as soon as possible. Call Tuesday for an appointment. Return immediately for any new, worsening, or concerning symptoms. Is patient prescribed a controlled substance at d/c from ED?: No Referrals: Mike Nickerson DO [Primary Care Provider] - 1-2 days Nathalia Trevino MD [STAFF PHYSICIAN] - 1-2 days Time of Disposition: 00:13 Decision Time: 00:06
[2018-08-04 22:34] LABS: HCT 36.9 % (39.0-53.0); MCH 34.3 pg (25.0-35.0); MCHC 32.6 g/dL (31.0-37.0); MCV 105.1 fL (80.0-100.0); Macrocytosis Moderate; Mean Platelet Volume 8.2; RBC 3.51 m/uL (4.30-5.90); RDW 14.3 % (11.5-15.5); WBC 3.2 k/uL (3.8-10.6)
[2018-08-04 22:40] LABS: Appearance,Urine Clear (Clear); Bilirubin,Urine Negative (Negative); Blood,Urine Negative (Negative); Color,Urine Yellow; Glucose,Urine (UA) Negative (Negative); Ketones,Urine Negative (Negative); Leukocyte Esterase,Urine Negative (Negative); Nitrite,Urine Negative (Negative); PH, Urine 7.5 (5.0-8.0); Protein,Urine Negative (Negative); Specific Gravity,Urine 1.016 (1.001-1.035)
[2018-08-04 22:44] LABS: ALT 90 U/L (21-72); AST 141 U/L (17-59); Albumin 2.9 g/dL (3.5-5.0); Alkaline Phosphatase 333 U/L (38-126); Anion Gap 4 mmol/L; Blood Urea Nitrogen 12 mg/dL (9-20); Carbon Dioxide 26 mmol/L (22-30); Chloride 107 mmol/L (98-107); Glucose 90 mg/dL (74-99); Potassium 4.6 mmol/L (3.5-5.1); Sodium 137 mmol/L (137-145); Total Bilirubin 0.9 mg/dL (0.2-1.3)
[2018-08-04 22:45] LABS: INR 1.1 (<1.2); Partial Thromboplastin Time 26.7 sec (22.0-30.0)
[2018-08-04 23:38] LABS: Basophils # (M) 0.03 k/uL (0-0.2); Eosinophils # (M) 0.03 k/uL (0-0.7); Lymphocytes # (M) 1.18 k/uL (1.0-4.8); Monocytes # (M) 0.29 k/uL (0-1.0); Neutrophils # (M) 1.66 k/uL (1.3-7.7); Neutrophils % (M) 52 %; Nucleated Red Blood Cells 0 /100 WBC (0-0); Total Cells Counted 100
[2018-08-04 23:39] LABS: Target Cells Present
[2018-08-04 23:40] LABS: Platelet Count 47 k/uL (150-450)
[2018-08-05 00:24] VITALS: BP 122/85; PULSE 83; RESP 16
== END 2018-08-05 00:20 | disposition home or self-care (01) ==
LOC: EC 20:56 → SUPCPDRO 20:56 → EC 08-05 00:20
DX: N50.89 Other specified disorders of the male genital organs (principal); R60.0 Localized edema; E11.9 Type 2 diabetes mellitus without complications; Z79.4 Long term (current) use of insulin
CPT/HCPCS: 36415; 80053; 81003; 85025; 85610; 85730; 99283

== ENCOUNTER → 2018-08-21 | Outpatient (CLI) | payer OTHER | END | disposition home or self-care (01) | LOC: LABWHC1 17:12 | PROVIDERS: ATTEND Internal Medicine Gastroenterology | DX: R79.89 Other specified abnormal findings of blood chemistry (principal) | CPT/HCPCS: 36415; 81256 ==

== ENCOUNTER → 2018-11-11 | Outpatient (CLI) | payer OTHER ==
[2018-11-11 10:31] LABS: HGB 14.5 gm/dL (13.0-17.5); MCHC 32.2 g/dL (31.0-37.0); MCV 99.3 fL (80.0-100.0); Mean Platelet Volume 8.6; RBC 4.54 m/uL (4.30-5.90); WBC 2.9 k/uL (3.8-10.6)
[2018-11-11 10:35] LABS: Platelet Count 54 k/uL (150-450)
== END | disposition home or self-care (01) ==
LOC: LABWHC1 09:22
PROVIDERS: ATTEND Internal Medicine
DX: B19.20 Unspecified viral hepatitis C without hepatic coma (principal); E10.65 Type 1 diabetes mellitus with hyperglycemia
CPT/HCPCS: 36415; 82947; 84681; 85027

== ENCOUNTER 2019-08-08 08:40 | Inpatient (IN) | payer OTHER ==
[2019-08-08] MEDS ORDERED: SODIUM CHLORIDE 0.9% 1,000 ML IV STA ×2 (09:04)
[2019-08-08] MEDS ORDERED: MORPHINE SULFATE 4 MG/ML SYRINGE IV STA (09:04)
[2019-08-08] MEDS ORDERED: PANTOPRAZOLE 40 MG/10 ML VIAL IVP STA (09:04)
[2019-08-08] MEDS ORDERED: KETOROLAC 30 MG/ML 1 ML VIAL IVP STA (09:04)
[2019-08-08] MEDS ORDERED: ONDANSETRON 4 MG/2 ML VIAL IVP STA (09:04)
--- NOTE | 2019-08-08 09:13 | ED ---
General Adult HPI - General Chief complaint: Recheck/Abnormal Lab/Rx Stated complaint: PAIN ALL OVER FROM FALL, DIABETIC PROBLEM Time Seen by Provider: 08/08/19 08:51 Source: patient, RN notes reviewed, old records reviewed Mode of arrival: wheelchair Limitations: no limitations - History of Present Illness Initial comments: Patient is a 44-year-old male with history of brittle diabetes. He presents today with multiple complaints. Patient reports an episode of low blood sugar on Tuesday. Patient reportedly fell that time due to the episode of low blood sugar. EMS was called at his work but then he signed off. Patient states that since that time he has had a few other falls due to low blood sugars. Patient reports that he has had no abrasion over his left cheek, complains of right- sided rib pain and reports that he has been coughing.. He has history of cirrhosis. Patient states that he has had no specific fevers or chills. He just generally feels achy. - Related Data Home Medications Medication Instructions Recorded Confirmed Insulin NPH Hum/Reg Insulin Hm 30 unit SQ HS 08/08/19 08/08/19 [NovoLIN 70-30 100 UNIT/ML VIAL] Insulin NPH Hum/Reg Insulin Hm 20 unit SQ QAM 08/08/19 08/08/19 [Novolin 70-30 100 Unit/ml Vial] Allergies Allergy/AdvReac Type Severity Reaction Status Date / Time No Known Allergies Allergy Verified 08/08/19 09:50 Review of Systems ROS Statement: Those systems with pertinent positive or pertinent negative responses have been documented in the HPI. ROS Other: All systems not noted in ROS Statement are negative. Past Medical History Past Medical History: Diabetes Mellitus, Liver Disease Additional Past Medical History / Comment(s): liver cirrhosis, pancreatitis, hep C History of Any Multi-Drug Resistant Organisms: None Reported Past Surgical History: Orthopedic Surgery Past Psychological History: No Psychological Hx Reported Smoking Status: Never smoker Past Alcohol Use History: None Reported Past Drug Use History: None Reported General Exam - General Exam Comments Initial Comments: 44-year-old male. Patient appears generally unwell generally weak. Smell of acetone on breath. Limitations: no limitations General appearance: alert, in no apparent distress Head exam: Present: atraumatic, normocephalic, normal inspection Eye exam: Present: normal appearance, PERRL, EOMI. Absent: scleral icterus, conjunctival injection, periorbital swelling ENT exam: Present: normal exam, mucous membranes moist Neck exam: Present: normal inspection. Absent: tenderness, meningismus, lymphadenopathy Respiratory exam: Present: normal lung sounds bilaterally, other ( Bruising over the right rib.). Absent: respiratory distress, wheezes, rales, rhonchi, stridor Cardiovascular Exam: Present: regular rate, normal rhythm, normal heart sounds. Absent: systolic murmur, diastolic murmur, rubs, gallop, clicks GI/Abdominal exam: Present: soft, normal bowel sounds. Absent: distended, tenderness, guarding, rebound, rigid Extremities exam: Present: normal inspection, full ROM, normal capillary refill. Absent: tenderness, pedal edema, joint swelling, calf tenderness Back exam: Present: normal inspection Neurological exam: Present: alert, oriented X3, CN II-XII intact Psychiatric exam: Present: normal affect, normal mood Skin exam: Present: warm, dry, intact, normal color. Absent: rash Course Vital Signs 08/08/19 08/08/19 08/08/19 08:42 09:36 10:00 Temperature 98.4 F Pulse Rate 100 98 95 Respiratory 20 12 20 Rate Blood Pressure 159/90 117/84 117/84 O2 Sat by Pulse 94 L 91 L 94 L Oximetry 08/08/19 10:30 Temperature Pulse Rate Respiratory 16 Rate Blood Pressure 121/75 O2 Sat by Pulse 94 L Oximetry EKG Findings - EKG Comments: EKG Findings:: EKG shows normal sinus rhythm, left atrial enlargement. Borderline EKG. Ventricular rate of 99 beats were minute. Verbal is 144 ms. QRS duration is 80 ms. QT QTc is 294/377 ms. Medical Decision Making - Medical Decision Making This is a 44-year-old male presents today for labile blood sugars, a fall. He complains of some right-sided rib pain, bruising. He also complains of bruising and pain over his left cheek. He has an abrasion noted. At this time Patient has blood sugar of 458. Urinalysis positive for ketones and glucose. Acetone is positive. Patient was given a 2 L bolus, started on insulin drip for DKA. Patient chest x-ray shows evidence of diffuse pneumonia, concern for possible neoplastic process. Does report of continuous coughing. Patient on will be placed on IV Rocephin, blood cultures obtained. His lactic acid is elevated at 3.4. - Lab Data Result diagrams: 08/08/19 09:30 08/08/19 09:30 Lab Results 08/08/19 08/08/19 08/08/19 Range/Units 09:00 09:30 09:30 WBC 5.4 (3.8-10.6) k/uL RBC 3.97 L (4.30-5.90) m/uL Hgb 13.6 (13.0-17.5) gm/dL Hct 42.3 (39.0-53.0) % MCV 106.7 H (80.0-100.0) fL MCH 34.4 (25.0-35.0) pg MCHC 32.2 (31.0-37.0) g/dL RDW 14.6 (11.5-15.5) % Plt Count 106 L (150-450) k/uL Neutrophils % 59 % Lymphocytes % 28 % Monocytes % 7 % Eosinophils % 1 % Basophils % 1 % Neutrophils # 3.2 (1.3-7.7) k/uL Lymphocytes # 1.5 (1.0-4.8) k/uL Monocytes # 0.4 (0-1.0) k/uL Eosinophils # 0.1 (0-0.7) k/uL Basophils # 0.0 (0-0.2) k/uL Differential Comment Manual Slide Review Performed Macrocytosis Moderate PT (9.0-12.0) sec INR (<1.2) APTT (22.0-30.0) sec Sodium 129 L (137-145) mmol/L Potassium 5.2 H (3.5-5.1) mmol/L Chloride 96 L (98-107) mmol/L Carbon Dioxide 13 L (22-30) mmol/L Anion Gap 20 mmol/L BUN 10 (9-20) mg/dL Creatinine 0.49 L (0.66-1.25) mg/dL Est GFR (CKD-EPI)AfAm >90 (>60 ml/min/1.73 sqM) Est GFR (CKD-EPI)NonAf >90 (>60 ml/min/1.73 sqM) Glucose 438 H (74-99) mg/dL Plasma Lactic Acid [place] (0.7-2.0) mmol/L Calcium 9.5 (8.4-10.2) mg/dL Total Bilirubin 2.3 H (0.2-1.3) mg/dL AST 89 H (17-59) U/L ALT 42 (21-72) U/L Alkaline Phosphatase 174 H (38-126) U/L Total Protein 6.5 (6.3-8.2) g/dL Albumin 3.4 L (3.5-5.0) g/dL Amylase <30 L (30-110) U/L Lipase 46 (23-300) U/L Urine Color Yellow Urine Appearance Clear (Clear) Urine pH 5.0 (5.0-8.0) Ur Specific [place] 1.026 (1.001-1.035) Urine Protein Negative (Negative) Urine Glucose (UA) 4+ H (Negative) Urine Ketones 3+ H (Negative) Urine Blood Negative (Negative) Urine Nitrite Negative (Negative) Urine Bilirubin Negative (Negative) Urine Urobilinogen 2.0 (<2.0) mg/dL Ur Leukocyte Esterase Negative (Negative) Acetone, Qual Positive (Negative) 08/08/19 08/08/19 Range/Units 09:30 09:30 WBC (3.8-10.6) k/uL RBC (4.30-5.90) m/uL Hgb (13.0-17.5) gm/dL Hct (39.0-53.0) % MCV (80.0-100.0) fL MCH (25.0-35.0) pg MCHC (31.0-37.0) g/dL RDW (11.5-15.5) % Plt Count (150-450) k/uL Neutrophils % % Lymphocytes % % Monocytes % % Eosinophils % % Basophils % % Neutrophils # (1.3-7.7) k/uL Lymphocytes # (1.0-4.8) k/uL Monocytes # (0-1.0) k/uL Eosinophils # (0-0.7) k/uL Basophils # (0-0.2) k/uL Differential Comment Manual Slide Review Macrocytosis PT 11.6 (9.0-12.0) sec INR 1.1 (<1.2) APTT 22.2 (22.0-30.0) sec Sodium (137-145) mmol/L Potassium (3.5-5.1) mmol/L Chloride (98-107) mmol/L Carbon Dioxide (22-30) mmol/L Anion Gap mmol/L BUN (9-20) mg/dL Creatinine (0.66-1.25) mg/dL Est GFR (CKD-EPI)AfAm (>60 ml/min/1.73 sqM) Est GFR (CKD-EPI)NonAf (>60 ml/min/1.73 sqM) Glucose (74-99) mg/dL Plasma Lactic Acid [place] 3.4 H* (0.7-2.0) mmol/L Calcium (8.4-10.2) mg/dL Total Bilirubin (0.2-1.3) mg/dL AST (17-59) U/L ALT (21-72) U/L Alkaline Phosphatase (38-126) U/L Total Protein (6.3-8.2) g/dL Albumin (3.5-5.0) g/dL Amylase (30-110) U/L Lipase (23-300) U/L Urine Color Urine Appearance (Clear) Urine pH (5.0-8.0) Ur Specific [place] (1.001-1.035) Urine Protein (Negative) Urine Glucose (UA) (Negative) Urine Ketones (Negative) Urine Blood (Negative) Urine Nitrite (Negative) Urine Bilirubin (Negative) Urine Urobilinogen (<2.0) mg/dL Ur Leukocyte Esterase (Negative) Acetone, Qual (Negative) - Radiology Data Radiology results: report reviewed No acute intracranial hemorrhage, mass effect or midline shift is seen. Extensive sinus disease and left maxillary sinus. No facial bone fracture. Additional findings which show superficial ecchymosis on the left cheek, there is some mild inflammatory changes present and ethmoid air cells. On arrived incisor noted in the maxilla on the right partially erupted posterior molars incidentally noted. Rib x-rays and chest x-ray shows no acute displaced rib fracture. Diffuse bilateral infiltrates to correlate for pneumonia. Neoplastic process is not excluded. Disposition Clinical Impression: Pneumonia, DKA (diabetic ketoacidoses), Fall Disposition: ADMITTED IP TO [facility] Condition: Stable Is patient prescribed a controlled substance at d/c from ED?: No Referrals: None,Stated [Primary Care Provider] - 1-2 days Time of Disposition: 11:10
[2019-08-08 09:31] LABS: Appearance,Urine Clear (Clear); Bilirubin,Urine Negative (Negative); Blood,Urine Negative (Negative); Color,Urine Yellow; Glucose,Urine (UA) 4+ (Negative); Leukocyte Esterase,Urine Negative (Negative); Nitrite,Urine Negative (Negative); Protein,Urine Negative (Negative); Specific Gravity,Urine 1.026 (1.001-1.035)
[2019-08-08 09:35] LABS: Ketones,Urine 3+ (Negative)
[2019-08-08 09:55] LABS: INR 1.1 (<1.2); Partial Thromboplastin Time 22.2 sec (22.0-30.0); Prothrombin Time 11.6 sec (9.0-12.0)
[2019-08-08 09:58] LABS: Basophils % (A) 1 %; Eosinophils # (A) 0.1 k/uL (0-0.7); Eosinophils % (A) 1 %; HCT 42.3 % (39.0-53.0); HGB 13.6 gm/dL (13.0-17.5); Lymphocytes # (A) 1.5 k/uL (1.0-4.8); Lymphocytes % (A) 28 %; MCH 34.4 pg (25.0-35.0); MCHC 32.2 g/dL (31.0-37.0); MCV 106.7 fL (80.0-100.0); Macrocytosis Moderate; Mean Platelet Volume 6.5; Monocytes # (A) 0.4 k/uL (0-1.0); Monocytes % (A) 7 %; Neutrophils # (A) 3.2 k/uL (1.3-7.7); Neutrophils % (A) 59 %; Platelet Count 106 k/uL (150-450); RBC 3.97 m/uL (4.30-5.90); RDW 14.6 % (11.5-15.5); WBC 5.4 k/uL (3.8-10.6)
[2019-08-08] MEDS ORDERED: SODIUM CHLORIDE 0.9% 1,000 ML IV ONE (10:05)
[2019-08-08 10:09] LABS: ALT 42 U/L (21-72); AST 89 U/L (17-59); African American GFR (CKD) >90 (>60 ml/min/1.73 sqM); Albumin 3.4 g/dL (3.5-5.0); Alkaline Phosphatase 174 U/L (38-126); Amylase <30 U/L (30-110); Anion Gap 20 mmol/L; Blood Urea Nitrogen 10 mg/dL (9-20); Calcium 9.5 mg/dL (8.4-10.2); Carbon Dioxide 13 mmol/L (22-30); Chloride 96 mmol/L (98-107); Glucose 438 mg/dL (74-99); Non-African American GFR(CKD) >90 (>60 ml/min/1.73 sqM); Sodium 129 mmol/L (137-145); Total Bilirubin 2.3 mg/dL (0.2-1.3); Total Protein 6.5 g/dL (6.3-8.2)
[2019-08-08 10:13] LABS: Potassium 5.2 mmol/L (3.5-5.1)
--- NOTE | 2019-08-08 10:40 | CT ---
EXAMINATION TYPE: CT brain wo con, CT facial bones wo con DATE OF EXAM: 08/08/2019 COMPARISON: Prior CT brain dated 02/10/2018 HISTORY: Fall, abrasion to left cheek, pain CT DLP: 1444.6 (accession [id number]), Included in Brain (accession [id number]) mGycm. Automated Exposur e Control for Dose Reduction was Utilized. TECHNIQUE: CT scan of the head and facial bones is performed without contrast. FINDINGS: There is no acute intracranial hemorrhage, mass effect, or midline shift identified. The ventricles and sulci are within normal limits in size. The globes are intact and the visualized sin uses are markable for air-fluid level, inflammatory change in the left maxillary sinus. The ostiomeatal unit on the left shows abnormal soft tissue. Orbits are intact, no evident blowout fr acture. External auditory canals show some cerumen. There is no erosion of the scutum. Auditory ossic les show symmetric appearance. Visualized portion of mastoid air cells are well aerated. There is shalonda e mild inflammatory change present in the ethmoid air cells. Unerupted incisor is noted in the maxill a on the right, partially erupted posterior molars incidentally noted. Superficial ecchymosis suspect ed in the left cheek consistent with patient's history. IMPRESSION: No acute intracranial hemorrhage, mass effect, or midline shift is seen. Extensive sinus disease left maxillary sinus. No evident facial bone fracture. Additional findings above.
--- NOTE | 2019-08-08 10:43 | XR ---
EXAMINATION TYPE: XR ribs RT w pa chest xray DATE OF EXAM: 08/08/2019 COMPARISON: 02/10/2018 TECHNIQUE: PA and lateral views submitted. HISTORY: Pain FINDINGS: Diffuse bilateral infiltrates. No pneumothorax. No sizable pleural effusion. Osseous structures intact. No acute displaced rib fracture. IMPRESSION: 1. No acute displaced rib fracture. 2. Diffuse bilateral infiltrates correlate for pneumonia. Neoplastic process not excluded.
[2019-08-08] MEDS ORDERED: Potassium Replacement Protocol 1 EACH MISC MISCELLANE PRN (10:45)
[2019-08-08] MEDS ORDERED: INSULIN REGULAR 100 UNIT in SODIUM CHLORIDE 0.9% 100 ML IV SCH (10:45)
[2019-08-08] MEDS ORDERED: SODIUM CHLORIDE 0.9% 1,000 ML IV SCH (10:45)
[2019-08-08] MEDS ORDERED: Magnesium Replacement Protocol 1 EACH MISC MISCELLANE PRN (10:45)
[2019-08-08] MEDS ORDERED: cefTRIAXone IN SWFI 1,000 MG/10 ML SYRINGE IVP STA (10:47)
[2019-08-08] MEDS ORDERED: NALOXONE 0.4 MG/ML 1 ML VIAL IV PRN (11:10)
[2019-08-08] MEDS ORDERED: ACETAMINOPHEN TAB 325 MG TAB PO PRN (11:10)
[2019-08-08] MEDS ORDERED: AZITHROMYCIN 500 MG TAB PO STA (11:10)
[2019-08-08] MEDS ORDERED: ONDANSETRON 4 MG/2 ML VIAL IVP PRN (11:10)
[2019-08-08] MEDS ORDERED: KETOROLAC 30 MG/ML 1 ML VIAL IVP PRN (11:10)
[2019-08-08] MEDS ORDERED: MORPHINE SULFATE 4 MG/ML SYRINGE IV PRN (11:10)
[2019-08-08] MEDS: INSULIN REGULAR BOLUS (FROM DRIP BAG) IV ONE ×2 (11:11→11:17)
[2019-08-08 11:40] LABS: African American GFR (CKD) >90 (>60 ml/min/1.73 sqM); Anion Gap 12 mmol/L; Blood Urea Nitrogen 9 mg/dL (9-20); Carbon Dioxide 22 mmol/L (22-30); Chloride 99 mmol/L (98-107); Glucose 277 mg/dL (74-99); Non-African American GFR(CKD) >90 (>60 ml/min/1.73 sqM); Potassium 3.5 mmol/L (3.5-5.1); Sodium 133 mmol/L (137-145)
[2019-08-08 11:44] LABS: VBG PH 7.34 (7.31-7.41)
[2019-08-08] MEDS ORDERED: THIAMINE 100 MG/ML 2 ML VIAL IM STA (11:52)
[2019-08-08] MEDS ORDERED: LORazepam 2 MG/ML INJ IV PRN ×3 (11:52)
[2019-08-08] MEDS ORDERED: D5-0.45% NACL WITH KCL 20MEQ/L 1,000 ML IV SCH (12:00)
[2019-08-08 12:29] LABS: Glucose,Whole Blood 182 mg/dL (75-99)
[2019-08-08] MEDS ORDERED: PNEUMOCOCCAL VACC-PNEUMOVAX 23 25 MCG/0.5 ML VIAL IM ONE (12:48)
--- NOTE | 2019-08-08 13:00 | P.HPIM ---
History of Present Illness Patient is a pleasant 44-year-old gentleman and is being admitted for DKA and possible atypical pneumonia. Patient had a fall because of low blood pressure and Fridays isn't patient has not been feeling well patient has been feeling tired of being fatigued. Patient denied any fever but doesn't have any leukocytosis chest x-ray showed diffuse infiltrate consistent with atypical pneumonia or influenza pneumonia and acute lung injury. Patient doesn't have any JVD patient does not appear to be in heart failure patient's BNP is only 300. Patient denied orthopnea paroxysmal nocturnal dyspnea has been coughing without any significant sputum production patient is also following found in DKA with highly elevated blood sugars anion gap of 24 with very low bicarbonate in the urine positive for ketones. Patient EKG improved now patient is on IV insulin. Which will be switched to subcutaneous insulin patient is already eating unfortunately because of which I'll give him pre-meal insulin and switch him to Lantus now. Patient's IV fluids will be switched to normal saline. Patient does have history of cirrhosis from alcohol patient has elevated MCV secondary to chronic alcoholic liver disease. Patient does have history of hepatitis C use to drink alcohol until 2 years ago quit drinking alcohol now for about 2 years.. She is also complaining of pleuritic chest pain. Review of Systems REVIEW OF SYSTEMS: CONSTITUTIONAL: As mentioned in HPI HEENT: No recent visual problems or hearing problems. Denied any sore throat. CARDIOVASCULAR:no palpitations, no syncope. PULMONARY: No shortness of breath, no cough, no hemoptysis. GASTROINTESTINAL: No diarrhea, no nausea, no vomiting, no abdominal pain. NEUROLOGICAL: No headaches, no weakness, no numbness. HEMATOLOGICAL: Denies any bleeding or petechiae. GENITOURINARY: Denies any burning micturition, frequency, or urgency. MUSCULOSKELETAL/RHEUMATOLOGICAL: Denies any joint pain, swelling, or any muscle pain. ENDOCRINE: Does have polyuria and polydipsia. The rest of the 14-point review of systems is negative. Past Medical History Past Medical History: Diabetes Mellitus, Eye Disorder, Liver Disease, Pneumonia Additional Past Medical History / Comment(s): IDDM, neuropathy bilateral hands, mild diabetic retinopathy bilaterally, past ETOH abuse-has not drank in 2 years, liver cirrhosis, hepatitis C, pt does not recall having pancreatitis. History of Any Multi-Drug Resistant Organisms: None Reported Past Surgical History: Orthopedic Surgery Additional Past Surgical History / Comment(s): L hand debridement, R lower abdominal abscess with surgery, R thigh abscess with surgery, R hand injury with surgical repair. Past Anesthesia/Blood Transfusion Reactions: No Reported Reaction Smoking Status: Never smoker - Past Family History Mother Family Medical History: Cancer Additional Family Medical History / Comment(s): Mother of throat cancer. Father History Unknown: Yes Additional Family Medical History / Comment(s): Pt does not keep in touch with his father. Medications and Allergies Home Medications Medication Instructions Recorded Confirmed Type Insulin NPH Hum/Reg Insulin Hm 30 unit SQ HS 08/08/19 08/08/19 History [NovoLIN 70-30 100 UNIT/ML VIAL] Insulin NPH Hum/Reg Insulin Hm 20 unit SQ QAM 08/08/19 08/08/19 History [Novolin 70-30 100 Unit/ml Vial] Allergies Allergy/AdvReac Type Severity Reaction Status Date / Time No Known Allergies Allergy Verified 08/08/19 09:50 Physical Exam Vitals: Vital Signs Temp Pulse Resp BP Pulse Ox 08/08/19 11:30 89 13 119/64 08/08/19 11:00 92 20 117/72 90 L 08/08/19 10:30 16 121/75 94 L 08/08/19 10:00 95 20 117/84 94 L 08/08/19 09:36 98 12 117/84 91 L 08/08/19 08:42 98.4 F 100 20 159/90 94 L Intake and Output 08/07/19 08/08/19 08/08/19 22:59 06:59 14:59 Other: Weight 74.843 kg PHYSICAL EXAMINATION: GENERAL: The patient is alert and oriented x3, not in any acute distress. Well developed, well nourished. Appears to be fatigued severely HEENT: Pupils are round and equally reacting to light. EOMI. No scleral icterus. No conjunctival pallor. Normocephalic, . No pharyngeal erythema. No thyromegaly. Patient has a bruise and the skin breakdown on the left side of face CARDIOVASCULAR: S1 and S2 present. No murmurs, rubs, or gallops. PULMONARY: Diffuse crackles bilaterally. ABDOMEN: Soft, nontender, nondistended, normoactive bowel sounds. No palpable organomegaly. MUSCULOSKELETAL: No joint swelling or deformity. EXTREMITIES: No cyanosis, clubbing, or pedal edema. NEUROLOGICAL: Gross neurological examination did not reveal any focal deficits. SKIN: No rashes. Results CBC & Chem 7: 08/08/19 09:30 08/08/19 11:02 Labs: Abnormal Lab Results - Last 24 Hours (Table) 08/08/19 08/08/19 08/08/19 Range/Units 09:00 09:30 09:30 RBC 3.97 L (4.30-5.90) m/uL MCV 106.7 H (80.0-100.0) fL Plt Count 106 L (150-450) k/uL VBG HCO3 (24-28) mmol/L Sodium 129 L (137-145) mmol/L Potassium 5.2 H (3.5-5.1) mmol/L Chloride 96 L (98-107) mmol/L Carbon Dioxide 13 L (22-30) mmol/L Creatinine 0.49 L (0.66-1.25) mg/dL Glucose 438 H (74-99) mg/dL POC Glucose (mg/dL) (75-99) mg/dL Plasma Lactic Acid Gonzalo (0.7-2.0) mmol/L Phosphorus (2.5-4.5) mg/dL Total Bilirubin 2.3 H (0.2-1.3) mg/dL AST 89 H (17-59) U/L Alkaline Phosphatase 174 H (38-126) U/L Albumin 3.4 L (3.5-5.0) g/dL Amylase <30 L (30-110) U/L Urine Glucose (UA) 4+ H (Negative) Urine Ketones 3+ H (Negative) 08/08/19 08/08/19 08/08/19 Range/Units 09:30 11:02 11:02 RBC (4.30-5.90) m/uL MCV (80.0-100.0) fL Plt Count (150-450) k/uL VBG HCO3 (24-28) mmol/L Sodium 133 L (137-145) mmol/L Potassium (3.5-5.1) mmol/L Chloride (98-107) mmol/L Carbon Dioxide (22-30) mmol/L Creatinine 0.47 L (0.66-1.25) mg/dL Glucose 277 H (74-99) mg/dL POC Glucose (mg/dL) (75-99) mg/dL Plasma Lactic Acid Gonzalo 3.4 H* (0.7-2.0) mmol/L Phosphorus 1.2 L (2.5-4.5) mg/dL Total Bilirubin (0.2-1.3) mg/dL AST (17-59) U/L Alkaline Phosphatase (38-126) U/L Albumin (3.5-5.0) g/dL Amylase (30-110) U/L Urine Glucose (UA) (Negative) Urine Ketones (Negative) 08/08/19 08/08/19 Range/Units 11:02 12:27 RBC (4.30-5.90) m/uL MCV (80.0-100.0) fL Plt Count (150-450) k/uL VBG HCO3 22 L (24-28) mmol/L Sodium (137-145) mmol/L Potassium (3.5-5.1) mmol/L Chloride (98-107) mmol/L Carbon Dioxide (22-30) mmol/L Creatinine (0.66-1.25) mg/dL Glucose (74-99) mg/dL POC Glucose (mg/dL) 182 H (75-99) mg/dL Plasma Lactic Acid Gonzalo (0.7-2.0) mmol/L Phosphorus (2.5-4.5) mg/dL Total Bilirubin (0.2-1.3) mg/dL AST (17-59) U/L Alkaline Phosphatase (38-126) U/L Albumin (3.5-5.0) g/dL Amylase (30-110) U/L Urine Glucose (UA) (Negative) Urine Ketones (Negative) Thrombosis Risk Factor Assmnt - Choose All That Apply Any of the Below Risk Factors Present?: Yes Each Factor Represents 1 point: Age 41-60 years, Serious lung disease incl. pneumonia (< 1month) Other Risk Factors: No Other congenital or acquired thrombophilia - If yes, enter type in comment: No Thrombosis Risk Factor Assessment Total Risk Factor Score: 2 Thrombosis Risk Factor Assessment Level: Low Risk Assessment and Plan Plan: -Chest pain pleuritic most probably related to pneumonia and acute lung injury chest x-ray shows diffuse infiltrate patient was started on levofloxacin because of the flulike symptoms of will obtain influenza testing as well this may be influenza-related lung injury. Patient received a Rocephin and azithromycin area. Suspicion is low for PE but if his chest pain doesn't get better with the above-mentioned treatment with a CAT scan to rule out one. -Diabetic ketoacidosis disease probably precipitated by above-mentioned infection. Patient is on DKA protocol IV insulin and correcting her provides accordingly patient's anion gap resolved and is around 12 now patient will be switched to subcutaneous insulin. IV fluids at 100 mL of normal saline. -History of for cirrhosis although patient doesn't have any ascites at this time. Patient did have history of hepatitis C and used to be an alcoholic in the past Diabetes mellitus, unsure whether this type in a type II definitely has insulin deficiency is in DKA at this time. DVT prophylaxis with subcutaneous heparin and GI prophylaxis with Pepcid
[2019-08-08] MEDS ORDERED: INSULIN ASPART (NovoLOG) 100 UNIT/ML VIAL SQ ONE (13:10)
[2019-08-08] MEDS ORDERED: INSULN ASP PRT/INSULIN ASPART 100 UNIT/ML 10 ML VIAL SQ ONE (13:21)
[2019-08-08] MEDS: LEVOFLOXACIN 750MG-D5W PMX 750 MG in DEXTROSE/WATER 1 150ML.BAG IVPB SCH (13:58)
[2019-08-08 15:47] LABS: African American GFR (CKD) >90 (>60 ml/min/1.73 sqM); Anion Gap 5 mmol/L; Blood Urea Nitrogen 9 mg/dL (9-20); Carbon Dioxide 25 mmol/L (22-30); Chloride 101 mmol/L (98-107); Glucose 231 mg/dL (74-99); Non-African American GFR(CKD) >90 (>60 ml/min/1.73 sqM); Phosphorus 1.5 mg/dL (2.5-4.5); Potassium 4.1 mmol/L (3.5-5.1); Sodium 131 mmol/L (137-145)
[2019-08-08 16:47] LABS: Glucose,Whole Blood 111 mg/dL (75-99)
[2019-08-08] MEDS: HEPARIN SODIUM,PORCINE 5,000 UNIT/ML 1 ML VIAL SQ SCH (17:22)
[2019-08-08] MEDS ORDERED: INSULIN ASPART (NovoLOG) 100 UNIT/ML VIAL SQ SCH (17:30)
[2019-08-08] MEDS ORDERED: THIAMINE 100 MG TAB PO SCH (17:30)
[2019-08-08 18:41] LABS: Glucose,Whole Blood 222 mg/dL (75-99)
[2019-08-08 20:44] LABS: Glucose,Whole Blood 94 mg/dL (75-99)
[2019-08-08] MEDS: FAMOTIDINE 20 MG TAB PO SCH (20:49)
[2019-08-08] MEDS ORDERED: INSULN ASP PRT/INSULIN ASPART 100 UNIT/ML 10 ML VIAL SQ SCH (21:00)
[2019-08-09] MEDS: HEPARIN SODIUM,PORCINE 5,000 UNIT/ML 1 ML VIAL SQ SCH ×4 (00:34→22:23)
[2019-08-09 06:33] LABS: Glucose,Whole Blood 253 mg/dL (75-99)
[2019-08-09] MEDS ORDERED: INSULIN ASPART (NovoLOG) 100 UNIT/ML VIAL SQ SCH ×3 (07:30→17:30)
[2019-08-09] MEDS ORDERED: INSULN ASP PRT/INSULIN ASPART 100 UNIT/ML 10 ML VIAL SQ SCH ×2 (07:30→21:00)
[2019-08-09] MEDS: FAMOTIDINE 20 MG TAB PO SCH ×2 (09:36→22:21)
[2019-08-09] MEDS: SODIUM CHLORIDE 0.9% 1,000 ML IV SCH (11:15)
[2019-08-09 11:42] LABS: Glucose,Whole Blood 349 mg/dL (75-99)
[2019-08-09] MEDS ORDERED: IPRATROPIUM-ALBUTEROL 3 ML NEB INHALATION PRN (12:00)
--- NOTE | 2019-08-09 12:01 | P.PN ---
Subjective 44-year-old the lisette male came in for DKA patient has diffuse infiltrate bilaterally appears to have atypical pneumonia patient was started on le vofloxacin patient had fever today I'll obtain a CAT scan of the chest patient is complaining of pleuritic chest pain. The patient has lobar pneumonia better change his levofloxacin to ceftriaxone and azithromycin pulmonology will be consulted patient is bit hypoxic as well patient blood sugars started going up patient 70/30 regimen will be discontinued patient will be started on pre-meal insulin and long-acting insulin. Patient's anion gap resolved.we'll also rule out pulmonary embolism with a CAT scan since he was having pleuritic chest pain which is most probably secondary to pneumonia and pleurisy.patient isfeeling that better today Constitutional: Denied any fatigue denied any fever. Cardio vascular: no palpitations Gastrointestinal denied any nausea vomiting Pulmonary: Denied any shortness of breath cough Neurologic denied any new focal deficits All inpatient medications were reviewed and appropriate changes in these medications as dictated in the interval history and assessment and plan. Objective - Vital Signs Vital signs: Vital Signs Temp 100.1 F H 08/09/19 11:35 Pulse 87 08/09/19 11:35 Resp 24 08/09/19 11:35 BP 112/60 08/09/19 11:35 Pulse Ox 88 L 08/09/19 11:35 Intake & Output 08/08/19 08/09/19 08/09/19 18:59 06:59 18:59 Intake Total 240 777 694 Balance 240 777 694 Weight 74.843 kg Intake: Oral 240 777 694 Other: Voiding Method Toilet Toilet # Voids 1 - Exam PHYSICAL EXAMINATION: GENERAL: The patient is alert and oriented x3, not in any acute distress. Well developed, well nourished. Appears to be fatigued severely HEENT: Pupils are round and equally reacting to light. EOMI. No scleral icterus. No conjunctival pallor. Normocephalic, . No pharyngeal erythema. No thyromegaly. Patient has a bruise and the skin breakdown on the left side of face CARDIOVASCULAR: S1 and S2 present. No murmurs, rubs, or gallops. PULMONARY: crackles bilaterally improved fairly good air entry into bilateral lung gore. ABDOMEN: Soft, nontender, nondistended, normoactive bowel sounds. No palpable organomegaly. MUSCULOSKELETAL: No joint swelling or deformity. EXTREMITIES: No cyanosis, clubbing, or pedal edema. NEUROLOGICAL: Gross neurological examination did not reveal any focal deficits. SKIN: No rashes. - Labs CBC & Chem 7: 08/08/19 09:30 08/08/19 15:00 Labs: Abnormal Lab Results - Last 24 Hours (Table) 08/08/19 08/08/19 08/08/19 Range/Units 11:02 11:14 12:27 Sodium (137-145) mmol/L Creatinine (0.66-1.25) mg/dL Glucose (74-99) mg/dL POC Glucose (mg/dL) 222 H 182 H (75-99) mg/dL Plasma Lactic Acid Gonzalo (0.7-2.0) mmol/L Phosphorus 1.2 L (2.5-4.5) mg/dL 08/08/19 08/08/19 08/08/19 Range/Units 15:00 15:00 16:46 Sodium 131 L (137-145) mmol/L Creatinine 0.47 L (0.66-1.25) mg/dL Glucose 231 H (74-99) mg/dL POC Glucose (mg/dL) 111 H (75-99) mg/dL Plasma Lactic Acid Gonzalo 3.1 H* (0.7-2.0) mmol/L Phosphorus 1.5 L (2.5-4.5) mg/dL 08/08/19 08/09/19 08/09/19 Range/Units 19:01 06:31 11:41 Sodium (137-145) mmol/L Creatinine (0.66-1.25) mg/dL Glucose (74-99) mg/dL POC Glucose (mg/dL) 253 H 349 H (75-99) mg/dL Plasma Lactic Acid Gonzalo 2.1 H* (0.7-2.0) mmol/L Phosphorus (2.5-4.5) mg/dL Assessment and Plan Plan: -Chest pain pleuritic most probably related to pneumonia and acute lung injury chest x-ray shows diffuse infiltrate patient was started on levofloxacin influenza testing is negative patient is presently septic probably because of atypical pneumonia (a CAT scan to better characterize and also to rule out pulmonary embolism. Patient sepsis appears to be severe as his admission serum lactate was very high -Diabetic ketoacidosis ketoacidosis anion gap resolved and patient will be resumed on IV fluids once we get the CAT scan patient is still bit hyponatremic which appears to be hypovolemic hyponatremia patient will be started on inhalational treatments. Patient's insulin regimen as mentioned above -History of for cirrhosis although patient doesn't have any ascites at this time. Patient did have history of hepatitis C and used to be an alcoholic in the past Diabetes mellitus, unsure whether this type in a type II definitely has insulin deficiency is in DKA at this time. DVT prophylaxis with subcutaneous heparin and GI prophylaxis with Pepcid
[2019-08-09] MEDS: LEVOFLOXACIN 750MG-D5W PMX 750 MG in DEXTROSE/WATER 1 150ML.BAG IVPB SCH (12:57)
[2019-08-09] MEDS ORDERED: methylPREDNISolone SOD SUCCI 125 MG/2 ML VIAL IV SCH (13:15)
--- NOTE | 2019-08-09 13:30 | CT ---
EXAMINATION TYPE: CT angio chest DATE OF EXAM: 08/09/2019 COMPARISON: None HISTORY: 44-year-old male Chest pain and shortness of breath. TECHNIQUE: Contiguous axial scanning of the chest performed with IV Contrast, patient injected with 5 0 mL of Isovue 370. Coronal/sagittal MIP reconstructions performed. CT DLP: 273.3 mGycm Automated exposure control for dose reduction was used. FINDINGS: Heart normal size without pericardial effusion. Aorta normal caliber with bovine configuration to the aortic arch. Scattered mediastinal lymph nodes are nonenlarged and mild to moderately enlarged measuring up to 1.5 cm in the right paratracheal region. Other satisfactory opacification of the pulmonary arterial system, there is extensive breathing motio n artifact limiting the evaluation for pulmonary embolus. No large central pulmonary embolus. No defi nite embolus to the lobar level. Many of the segmental and more distal arterial branches are nondiagn ostic. Trace left pleural effusion. Patchy and confluent consolidation throughout the left lung and confluen t nodular and interstitial opacities throughout the right lung. Cirrhotic morphology of the liver. Splenomegaly. No osseous destructive process. IMPRESSION: 1. BREATHING MOTION ARTIFACTS LIMITING ASSESSMENT FOR PULMONARY EMBOLUS. NO LARGE CENTRAL OR DEFINITE LOBAR BRANCH PULMONARY EMBOLUS. MANY OF THE SEGMENTAL AND MORE DISTAL ARTERIAL BRANCHES ARE NONDIAGN OSTIC AND EMBOLI IN THESE LOCATIONS CANNOT BE ADEQUATELY EXCLUDED ON THE BASIS OF THIS EXAM. 2. EXTENSIVE PATCHY AND CONFLUENT AIRSPACE DISEASE, LEFT GREATER THAN RIGHT. SOME DIFFERENTIAL CONSID ERATIONS: MULTIFOCAL PNEUMONIA INCLUDING ATYPICAL INFECTIONS, HYPERSENSITIVITY PNEUMONITIS, SEVERE IN TERSTITIAL PNEUMONITIS, CHEMICAL/INHALATIONAL PNEUMONITIS, ARDS, CARDIOGENIC/NONCARDIOGENIC PULMONARY EDEMA, AND VASCULITIS. FURTHER CLINICAL CORRELATION WILL BE NEEDED. 3. NONENLARGED AND MILD TO MODERATELY ENLARGED MEDIASTINAL LYMPH NODES MEASURING UP TO 1.5 CM LIKELY REACTIVE . 4. TRACE LEFT PLEURAL EFFUSION. 5. CIRRHOSIS AND SUSPECTED PORTAL VENOUS HYPERTENSION.
--- NOTE | 2019-08-09 15:04 | P.CNPUL ---
History of Present Illness Consult date: 08/09/19 Reason for consult: dyspnea, cough, chest pain, hypoxemia, abnormal CXR/CT Chief complaint: Cough, dyspnea, chest discomfort, abnormal chest x-ray History of present illness: This is a 44-year-old white male patient who currently does not have a primary care provider, but used to see Julien Perez PA-C, who came into the emergency department yesterday on 08/08/2019 with complaints of passing out, hypoglycemic episodes, right chest wall pain, cough, increased difficulty breathing. Patient is a type II diabetic and he takes NovoLog 70/30 20 units in the morning and 30 units at bedtime, and his hypoglycemic episodes started last week when she was repeatedly falling related to low blood sugars, and he admits to passing out. Sustained abrasion on his left cheek, and he has mild bruising on his right posterior chest, and pain and tenderness in the right anterior lower chest along the rib margin. Denied any fever, but admits to having chills. Has been having some night sweats, his cough is raspy but nonproductive. Denies history of smoking, does occasionally smoke marijuana, admits to trying vaping one time in the past. 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 He stated he bought a house for $500 that needs a lot of repairs, and apparently has mold in it that patient cleaned up himself with bleach. Other medical history includes cirrhosis of the liver, EtOH abuse, currently in remission, hep C, and family history of diabetes. Brain CT showed no acute abnormality, chest x-ray of the ribs showed diffuse bilateral infiltrates, no pneumothorax, possibility of atypical pneumonia and neoplastic process could not be excluded. This was followed with the chest CTA, revealing no definite evidence of pulmonary embolism, extensive patchy and confluent airspace disease left greater than right, with increased consolidation in the left lower lobe and left upper lobe. Patient was started on empiric antibiotics in the form of Levaquin, initially he was afebrile, today he is having a low-grade fever. Hemodynamically stable, he required supplemental oxygen initiation today with pulse ox of 80% on room air. Not coughing up any sputum. Lab work was negative for any leukocytosis, white blood cell count was 5.4, hemoglobin is 13.6, coagulation profile was within normal limits, sodium is 131, potassium is 4.1, the rest of the electrolytes were within normal limits, CO2 is 25, anion gap was 5, BUN is 9, creatinine 0.47, influenza screen was negative, plasma lactic acid was mildly elevated at 3.1, and serum phosphorus was 1.5. Patient was fluid resuscitated, and his lactic acid within normal limits. We're asked to see the patient for evaluation of diffuse infiltrates seen on chest x-ray and CT scan of the chest Review of Systems All systems: negative Constitutional: Reports chills, Denies fever Eyes: denies blurred vision, denies pain Ears, nose, mouth and throat: Denies headache, Denies sore throat Cardiovascular: Denies chest pain, Denies shortness of breath Respiratory: Reports cough, Reports dyspnea Gastrointestinal: Denies abdominal pain, Denies diarrhea, Denies nausea, Denies vomiting Musculoskeletal: Denies myalgias Integumentary: Denies pruritus, Denies rash Neurological: Reports balance difficulties, Reports change in mentation, Reports gait dysfunction, Denies numbness, Denies weakness Psychiatric: Denies anxiety, Denies depression Endocrine: Denies fatigue, Denies weight change Past Medical History Past Medical History: Diabetes Mellitus, Eye Disorder, Liver Disease, Pneumonia Additional Past Medical History / Comment(s): IDDM, neuropathy bilateral hands, mild diabetic retinopathy bilaterally, past ETOH abuse-has not drank in 2 years, liver cirrhosis, hepatitis C, pt does not recall having pancreatitis. History of Any Multi-Drug Resistant Organisms: None Reported Past Surgical History: Orthopedic Surgery Additional Past Surgical History / Comment(s): L hand debridement, R lower abdominal abscess with surgery, R thigh abscess with surgery, R hand injury with surgical repair. Past Anesthesia/Blood Transfusion Reactions: No Reported Reaction Smoking Status: Never smoker - Past Family History Mother Family Medical History: Cancer Additional Family Medical History / Comment(s): Mother of throat cancer. Father History Unknown: Yes Additional Family Medical History / Comment(s): Pt does not keep in touch with his father. Medications and Allergies Home Medications Medication Instructions Recorded Confirmed Type Insulin NPH Hum/Reg Insulin Hm 30 unit SQ HS 08/08/19 08/08/19 History [NovoLIN 70-30 100 UNIT/ML VIAL] Insulin NPH Hum/Reg Insulin Hm 20 unit SQ QAM 08/08/19 08/08/19 History [Novolin 70-30 100 Unit/ml Vial] Allergies Allergy/AdvReac Type Severity Reaction Status Date / Time No Known Allergies Allergy Verified 08/08/19 09:50 Physical Exam Vitals: Vital Signs Temp Pulse Resp BP BP Pulse Ox 08/09/19 11:35 100.1 F H 87 24 112/60 88 L 08/09/19 08:00 16 08/09/19 07:00 98.5 F 97 16 110/66 96 08/09/19 00:00 98.1 F 84 18 118/71 91 L 08/08/19 19:44 80 18 08/08/19 15:00 77 16 109/70 92 L 08/08/19 14:13 101 H 18 Intake and Output 08/08/19 08/09/19 08/09/19 22:59 06:59 14:59 Intake Total 897 694 Balance 897 694 Intake: Oral 897 694 Other: Voiding Method Toilet Toilet Toilet # Voids 1 1 GENERAL EXAM: Alert, pleasant, 44-year-old white male, slightly pale, but no acute distress comfortable in no apparent distress. Patient does experience right lower chest discomfort with repositioning. Clubbing noted involving digits of his bilateral hands HEAD: Normocephalic/atraumatic. EYES: Normal reaction of pupils, equal size. Conjunctiva pink, sclera white. NOSE: Clear with pink turbinates. THROAT: No erythema or exudates. NECK: No masses, no JVD, no thyroid enlargement, no adenopathy. CHEST: No chest wall deformity. Symmetrical expansion. LUNGS: Equal air entry with fine needle crackles over bilateral bases, left mid lung posteriorly CVS: Regular rate and rhythm, normal S1 and S2, no gallops, no murmurs, no rubs ABDOMEN: Soft, nontender. No hepatosplenomegaly, normal bowel sounds, no guarding or rigidity. EXTREMITIES: No clubbing, no edema, no cyanosis, 2+ pulses and upper and lower extremities. MUSCULOSKELETAL: Muscle strength and tone normal. SPINE: No scoliosis or deformity SKIN: No rashes, mild bruising on the posterior right chest CENTRAL NERVOUS SYSTEM: Alert and oriented -3. No focal deficits, tone is normal in all 4 extremities. PSYCHIATRIC: Alert and oriented -3. Appropriate affect. Intact judgment and insight. Results - Laboratory Findings CBC and BMP: 08/08/19 09:30 11/13/19 15:00 PT/INR, D-dimer PT 11.6 sec (9.0-12.0) 08/08/19 09:30 INR 1.1 (<1.2) 08/08/19 09:30 Abnormal lab findings: Abnormal Labs 08/08/19 08/08/19 08/08/19 09:00 09:30 09:30 RBC 3.97 L MCV 106.7 H Plt Count 106 L VBG HCO3 Sodium 129 L Potassium 5.2 H Chloride 96 L Carbon Dioxide 13 L Creatinine 0.49 L Glucose 438 H POC Glucose (mg/dL) Plasma Lactic Acid Gonzalo Phosphorus Total Bilirubin 2.3 H AST 89 H Alkaline Phosphatase 174 H Albumin 3.4 L Amylase <30 L Urine Glucose (UA) 4+ H Urine Ketones 3+ H 08/08/19 08/08/19 08/08/19 09:30 11:02 11:02 RBC MCV Plt Count VBG HCO3 Sodium 133 L Potassium Chloride Carbon Dioxide Creatinine 0.47 L Glucose 277 H POC Glucose (mg/dL) Plasma Lactic Acid Gonzalo 3.4 H* Phosphorus 1.2 L Total Bilirubin AST Alkaline Phosphatase Albumin Amylase Urine Glucose (UA) Urine Ketones 08/08/19 08/08/19 08/08/19 11:02 11:14 12:27 RBC MCV Plt Count VBG HCO3 22 L Sodium Potassium Chloride Carbon Dioxide Creatinine Glucose POC Glucose (mg/dL) 222 H 182 H Plasma Lactic Acid Gonzalo Phosphorus Total Bilirubin AST Alkaline Phosphatase Albumin Amylase Urine Glucose (UA) Urine Ketones 08/08/19 08/08/19 08/08/19 15:00 15:00 16:46 RBC MCV Plt Count VBG HCO3 Sodium 131 L Potassium Chloride Carbon Dioxide Creatinine 0.47 L Glucose 231 H POC Glucose (mg/dL) 111 H Plasma Lactic Acid Gonzalo 3.1 H* Phosphorus 1.5 L Total Bilirubin AST Alkaline Phosphatase Albumin Amylase Urine Glucose (UA) Urine Ketones 08/08/19 08/09/19 08/09/19 19:01 06:31 11:41 RBC MCV Plt Count VBG HCO3 Sodium Potassium Chloride Carbon Dioxide Creatinine Glucose POC Glucose (mg/dL) 253 H 349 H Plasma Lactic Acid Gonzalo 2.1 H* Phosphorus Total Bilirubin AST Alkaline Phosphatase Albumin Amylase Urine Glucose (UA) Urine Ketones - Diagnostic Findings Chest x-ray: report reviewed, image reviewed Additional studies: CT brain, and face reviewed Assessment and Plan Plan: Assessment: #1. Acute hypoxemic respiratory failure related to possibility of multifocal pneumonia, with possibility of aspiration, atypical infection, hypersensitivity pneumonitis versus neoplastic process, chest x-ray and CTA chest both showed diffuse patchy and confluent infiltrates involving both lungs #2. Hypoglycemic episodes and falls at home #3. Right lower chest wall pain likely related to recent falls #4. Mild lactic acidosis, rule out sepsis, improved with IV hydration #5. Diabetic ketoacidosis, resolved, and on today's labs anion gap has closed #6. Lifetime nonsmoker #7. History of EtOH abuse currently in remission for the past 2 years #8. History of liver cirrhosis #9. History of hepatitis C #9. 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 Marijuana user Plan: Continue with Levaquin, we'll add Zosyn for possibility of aspiration pneumonia, chest x-ray and CTA chest . With Dr. Fregoso, patient has been seen and evaluated by Dr. Fregoso. Has a low-grade fever, but no evidence of leukocytosis, we will continue with empiric antibiotics, we'll send a sputum culture, we'll keep the patient nothing by mouth for bronchoscopy, BAL and transbronchial biopsy to rule out possibility of a neoplastic process. We'll obtain echocardiogram. We will continue to follow I performed a history & physical examination of the patient and discussed their management with my nurse practitioner, Brenda Garcai. I reviewed the nurse practitioner's note and agree with the documented findings and plan of care. Lung sounds are positive for fine crackles over left lower and left mid lung posteriorly fine crackles over right base. The findings and the impression was discussed with the patient. I attest to the documentation by the nurse practitioner. Time with Patient: Greater than 30
[2019-08-09] MEDS: IPRATROPIUM-ALBUTEROL 3 ML NEB INHALATION SCH ×2 (15:59→19:57)
[2019-08-09] MEDS: PIPERACILLIN-TAZOBACTAM 3.375 GM in SODIUM CHLORIDE 0.9% 100 ML IVPB SCH ×2 (16:10→23:58)
[2019-08-09] MEDS: KETOROLAC 30 MG/ML 1 ML VIAL IVP PRN (16:11)
[2019-08-09 16:44] LABS: Glucose,Whole Blood 394 mg/dL (75-99)
[2019-08-09] MEDS ORDERED: INSULIN DETEMIR (LEVEMIR) 100 UNIT/ML SYR SQ SCH (17:00)
[2019-08-09] MEDS: INSULIN ASPART (NovoLOG) 100 UNIT/ML VIAL SQ SCH (17:43)
[2019-08-09 18:14] LABS: Glucose,Whole Blood 487 mg/dL (75-99)
[2019-08-09] MEDS: INSULIN REGULAR 100 UNIT in SODIUM CHLORIDE 0.9% 100 ML IV SCH ×2 (18:14→22:21)
[2019-08-09 18:56] LABS: Glucose,Whole Blood 505 mg/dL (75-99)
--- NOTE | 2019-08-09 19:01 | ECHOF ---
Referral Reason:pulm htn MEASUREMENTS -------- HEIGHT: 170.2 cm WEIGHT: 64.9 kg BP: 112/60 IVSd: 1.2 cm (0.6 - 1.1) LVIDd: 3.8 cm (3.9 - 5.3) LVPWd: 0.9 cm (0.6 - 1.1) IVSs: 1.3 cm LVIDs: 2.8 cm LVPWs: 1.6 cm LA Diam: 3.5 cm (2.7 - 3.8) RVIDd: 3.0 cm (< 3.3) LAESV Index (A-L): 25.80 ml/m Ao Diam: 2.3 cm (2.0 - 3.7) LA Diam: 2.9 cm (2.7 - 3.8) AV Cusp: 1.8 cm (1.5 - 2.6) EPSS: 0.2 cm MV E Ricci: 1.02 m/s MV DecT: 154 ms MV A Ricci: 0.82 m/s MV E/A Ratio: 1.25 RAP: 5.00 mmHg RVSP: 35.57 mmHg MV EF SLOPE: 70.12 mm/s (70 - 150) MV EXCURSION: 12.45 mm (> 18.000) FINDINGS -------- Sinus rhythm. This was a technically good study. The left ventricular size is normal. There is mild concentric left ventricular hypertrophy. Overa ll left ventricular systolic function is normal with, an EF between 55 - 60 %. The right ventricle is normal in size. The left atrial size is normal. Normal LA size by volume 22+/-6 ml/m2. The right atrial size is normal. The aortic valve is trileaflet, and appears structurally normal. No aortic stenosis or regurgitation. Mild mitral regurgitation is present. Mild tricuspid regurgitation present. There is no evidence of pulmonary hypertension. The right v entricular systolic pressure, as measured by Doppler, is 35.57mmHg. There is no pulmonic regurgitation present. The aortic root size is normal. There is no pericardial effusion. CONCLUSIONS -------- 1. Sinus rhythm. 2. This was a technically good study. 3. The left ventricular size is normal. 4. There is mild concentric left ventricular hypertrophy. 5. Overall left ventricular systolic function is normal with, an EF between 55 - 60 %. 6. The right ventricle is normal in size. 7. The left atrial size is normal. 8. Normal LA size by volume 22+/-6 ml/m2. 9. The right atrial size is normal. 10. The aortic valve is trileaflet, and appears structurally normal. No aortic stenosis or regurgitat ion. 11. Mild mitral regurgitation is present. 12. Mild tricuspid regurgitation present. 13. There is no evidence of pulmonary hypertension. 14. The right ventricular systolic pressure, as measured by Doppler, is 35.57mmHg. 15. There is no pulmonic regurgitation present. 16. The aortic root size is normal. 17. There is no pericardial effusion. CELLULOSE INSULATION HELPER: Debbie Duke RDCS
[2019-08-09 19:28] LABS: Glucose,Whole Blood 423 mg/dL (75-99)
[2019-08-09 19:50] LABS: Glucose,Whole Blood 375 mg/dL (75-99)
[2019-08-09 21:55] LABS: Glucose,Whole Blood 291 mg/dL (75-99)
[2019-08-09] MEDS: methylPREDNISolone SOD SUCCI 40 MG/ML 1 ML VIAL IV SCH (22:23)
[2019-08-10] MEDS: SODIUM CHLORIDE 0.9% 1,000 ML IV SCH ×2 (00:01→13:54)
[2019-08-10 00:13] LABS: Glucose,Whole Blood 458 mg/dL (75-99)
[2019-08-10 01:49] LABS: Glucose,Whole Blood 462 mg/dL (75-99)
[2019-08-10 03:43] LABS: Glucose,Whole Blood 368 mg/dL (75-99)
[2019-08-10 06:09] LABS: Glucose,Whole Blood 227 mg/dL (75-99)
[2019-08-10 06:55] LABS: Basophils % (A) 1 %; Eosinophils % (A) 0 %; HCT 39.3 % (39.0-53.0); HGB 12.3 gm/dL (13.0-17.5); Lymphocytes # (A) 0.7 k/uL (1.0-4.8); Lymphocytes % (A) 18 %; MCHC 31.2 g/dL (31.0-37.0); MCV 105.6 fL (80.0-100.0); Macrocytosis Moderate; Mean Platelet Volume 7.2; Monocytes # (A) 0.3 k/uL (0-1.0); Monocytes % (A) 7 %; Neutrophils # (A) 2.5 k/uL (1.3-7.7); Neutrophils % (A) 70 %; RBC 3.72 m/uL (4.30-5.90); RDW 14.8 % (11.5-15.5); WBC 3.6 k/uL (3.8-10.6)
[2019-08-10 06:56] LABS: African American GFR (CKD) >90 (>60 ml/min/1.73 sqM); Anion Gap 5 mmol/L; Blood Urea Nitrogen 14 mg/dL (9-20); Calcium 8.8 mg/dL (8.4-10.2); Carbon Dioxide 28 mmol/L (22-30); Chloride 106 mmol/L (98-107); Glucose 241 mg/dL (74-99); Non-African American GFR(CKD) >90 (>60 ml/min/1.73 sqM); Potassium 3.9 mmol/L (3.5-5.1); Sodium 139 mmol/L (137-145)
[2019-08-10] MEDS ORDERED: INSULIN DETEMIR (LEVEMIR) 100 UNIT/ML SYR SQ SCH (07:00)
[2019-08-10] MEDS: INSULIN ASPART (NovoLOG) 100 UNIT/ML VIAL SQ SCH ×3 (07:35→17:16)
[2019-08-10] MEDS: IPRATROPIUM-ALBUTEROL 3 ML NEB INHALATION SCH ×4 (07:38→20:27)
[2019-08-10 07:53] LABS: Glucose,Whole Blood 272 mg/dL (75-99)
--- NOTE | 2019-08-10 08:01 | P.CONS ---
History of Present Illness - Reason for Consult Consult date: 08/09/19 Pneumonia Requesting physician: Edwardo Conde - Chief Complaint Falls shortness of breath and cough x few days - History of Present Illness Patient is a 44-year-old male with a past medical history significant for insulin-dependent diabetes mellitus also with a history of hepatitis C cirrhosis and alcoholism currently in remission presenting to the ER with chief complaints of low blood sugar and multiple falls patient sustaining injury to her left side of his face with an abrasion and also complaining of passing out the patient has been complaining of shortness of breath and right lower chest pain which is more of a sharp to dull aching worse with deep breathing and coughing up has been mild to moderate intensity with minimal sputum production no hemoptysis denies having any nausea no vomiting no choking on the food, pain diarrhea or any urinary symptoms patient on presentation hospital was afebrile subsequently did have low-grade fever today of 100.1 patient has been mostly leukopenic patient did have initial chest CT followed by CT angiogram that was nondiagnostic for PE because of motion artifact however did show diffuse. Her infiltrate more on the right than on the left side patient was initially on Levaquin and Zosyn was added by pulmonary infection he was consulted for further recommendation regarding antibiotic therapy Review of Systems Positive point has been mentioned in the HPI rest of the systems are negative Past Medical History Past Medical History: Diabetes Mellitus, Eye Disorder, Liver Disease, Pneumonia Additional Past Medical History / Comment(s): IDDM, neuropathy bilateral hands, mild diabetic retinopathy bilaterally, past ETOH abuse-has not drank in 2 years, liver cirrhosis, hepatitis C, pt does not recall having pancreatitis. History of Any Multi-Drug Resistant Organisms: None Reported Past Surgical History: Orthopedic Surgery Additional Past Surgical History / Comment(s): L hand debridement, R lower abdominal abscess with surgery, R thigh abscess with surgery, R hand injury with surgical repair. Past Anesthesia/Blood Transfusion Reactions: No Reported Reaction Smoking Status: Never smoker - Past Family History Mother Family Medical History: Cancer Additional Family Medical History / Comment(s): Mother of throat cancer. Father History Unknown: Yes Additional Family Medical History / Comment(s): Pt does not keep in touch with his father. Medications and Allergies Home Medications Medication Instructions Recorded Confirmed Type Insulin NPH Hum/Reg Insulin Hm 30 unit SQ HS 08/08/19 08/08/19 History [NovoLIN 70-30 100 UNIT/ML VIAL] Insulin NPH Hum/Reg Insulin Hm 20 unit SQ QAM 08/08/19 08/08/19 History [Novolin 70-30 100 Unit/ml Vial] Allergies Allergy/AdvReac Type Severity Reaction Status Date / Time No Known Allergies Allergy Verified 08/08/19 09:50 Physical Exam Vitals: Vital Signs Temp Pulse Pulse Resp BP BP Pulse Ox 08/09/19 16:07 88 16 08/09/19 16:01 91 L 08/09/19 15:59 84 16 08/09/19 15:28 98.4 F 85 16 109/67 93 L 08/09/19 11:35 100.1 F H 87 24 112/60 88 L 08/09/19 08:00 16 08/09/19 07:00 98.5 F 97 16 110/66 96 08/09/19 00:00 98.1 F 84 18 118/71 91 L 08/08/19 19:44 80 18 Intake and Output 08/09/19 08/09/19 08/09/19 06:59 14:59 22:59 Intake Total 1318 Balance 1318 Intake: IV 180 Levofloxacin 750Mg-D5w 100 Pmx 750 mg In Dextrose/ Water 1 150ml.bag @ 100 mls/hr IVPB Q24H JORDAN Rx#: [id number] Sodium Chloride 0.9% 1, 80 000 ml @ 20 mls/hr IV . Q24H JORDAN Rx#:[id number] Oral 1138 Other: Voiding Method Toilet Toilet # Voids 1 GENERAL DESCRIPTION: Middle-aged male lying in bed, no distress. No tachypnea or accessory muscle of respiration use. HEENT: Shows Pallor , no scleral icterus. Oral mucous membrane is dry. No pharyngeal erythema or thrush NECK: Trachea central, no thyromegaly. LUNGS: Unlabored breathing. Coarse breath sound at the bases bilaterally. No wheeze or crackle. HEART: S1, S2, regular rate and rhythm. No loud murmur ABDOMEN: Soft, no tenderness , guarding or rigidity, no organomegaly EXTREMITIES: No edema of feet. SKIN: No rash, no masses palpable. NEUROLOGICAL: The patient is awake, alert, oriented x3, mood and affect normal. Results CBC & Chem 7: 08/10/19 06:02 11/15/19 06:02 Labs: Abnormal Lab Results - Last 24 Hours (Table) 08/08/19 08/08/19 08/09/19 Range/Units 11:14 19:01 06:31 POC Glucose (mg/dL) 222 H 253 H (75-99) mg/dL Plasma Lactic Acid Gonzalo 2.1 H* (0.7-2.0) mmol/L 08/09/19 08/09/19 Range/Units 11:41 16:42 POC Glucose (mg/dL) 349 H 394 H (75-99) mg/dL Plasma Lactic Acid Gonzalo (0.7-2.0) mmol/L Microbiology - Last 24 Hours (Table) 08/08/19 11:02 Blood Culture - Preliminary Blood No Growth after 24 hours Assessment and Plan Assessment: 1-patient with symptoms of falls and possible gout this patient did have evidence of hyperglycemia now with a low-grade fever and bilateral pulmonary fitted more than the right than on the left with a question of possible atypical pneumonia versus a bun of aspiration etiology as there is a history of syncope she (1) Pneumonia Current Visit: Yes Status: Acute Code(s): J18.9 - PNEUMONIA, UNSPECIFIED ORGANISM SNOMED Code(s): 028059910 Plan: 1-we will check sputum for Gram stain and culture 2-check urine for Legionella antigen CRP and Procalcitonin 3-patient to continue with Levaquin and Zosyn We will follow on clinical condition and cultures to further adjust medication if needed Thank you for this consultation will follow this patient with you Time with Patient: Greater than 30
[2019-08-10] MEDS: FAMOTIDINE 20 MG TAB PO SCH ×3 (08:11→19:56)
[2019-08-10] MEDS: methylPREDNISolone SOD SUCCI 40 MG/ML 1 ML VIAL IV SCH ×2 (08:16→19:56)
[2019-08-10] MEDS: HEPARIN SODIUM,PORCINE 5,000 UNIT/ML 1 ML VIAL SQ SCH ×2 (08:16→15:54)
[2019-08-10] MEDS: PIPERACILLIN-TAZOBACTAM 3.375 GM in SODIUM CHLORIDE 0.9% 100 ML IVPB SCH ×3 (08:17→23:57)
[2019-08-10 08:33] LABS: Anisocytosis (M) Present; Platelet Count 61 k/uL (150-450); Poikilocytosis (M) Present
[2019-08-10 09:57] LABS: Glucose,Whole Blood 288 mg/dL (75-99)
--- NOTE | 2019-08-10 10:21 | P.PN ---
Subjective Progress Note Date: 08/10/19 Principal diagnosis: Acute hypoxemic respiratory failure with the possibility of aspiration pneumonia, hypersensitivity pneumonitis, rule out neoplastic process This is a 44-year-old white male patient who currently does not have a primary care provider, but used to see Julien Perez PA-C, who came into the emergency department yesterday on 08/08/2019 with complaints of passing out, hypoglycemic episodes, right chest wall pain, cough, increased difficulty breathing. Patient is a type II diabetic and he takes NovoLog 70/30 20 units in the morning and 30 units at bedtime, and his hypoglycemic episodes started last week when she was repeatedly falling related to low blood sugars, and he admits to passing out. Sustained abrasion on his left cheek, and he has mild bruising on his right posterior chest, and pain and tenderness in the right anterior lower chest along the rib margin. Denied any fever, but admits to having chills. Has been having some night sweats, his cough is raspy but nonproductive. Denies history of smoking, does occasionally smoke marijuana, admits to trying vaping one time in the past. 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 He stated he bought a house for $500 that needs a lot of repairs, and apparently has mold in it that patient cleaned up himself with bleach. Other medical history includes cirrhosis of the liver, EtOH abuse, currently in remission, hep C, and family history of diabetes. Brain CT showed no acute abnormality, chest x-ray of the ribs showed diffuse bilateral infiltrates, no pneumothorax, poss ibility of atypical pneumonia and neoplastic process could not be excluded. This was followed with the chest CTA, revealing no definite evidence of pulmonary embolism, extensive patchy and confluent airspace disease left greater than right, with increased consolidation in the left lower lobe and left upper lobe. Patient was started on empiric antibiotics in the form of Levaquin, initially he was afebrile, today he is having a low-grade fever. Hemodynamically stable, he required supplemental oxygen initiation today with pulse ox of 80% on room air. Not coughing up any sputum. Lab work was negative for any leukocytosis, white blood cell count was 5.4, hemoglobin is 13.6, coagulation profile was within normal limits, sodium is 131, potassium is 4.1, the rest of the electrolytes were within normal limits, CO2 is 25, anion gap was 5, BUN is 9, creatinine 0.47, influenza screen was negative, plasma lactic acid was mildly elevated at 3.1, and serum phosphorus was 1.5. Patient was fluid resuscitated, and his lactic acid within normal limits. We're asked to see the patient for evaluation of diffuse infiltrates seen on chest x-ray and CT scan of the chest. On 08/10/2019 patient seen in follow-up on an elective care unit, he states his breathing is improving, still has right-sided chest wall soreness, difficult for him to reposition, he states overall she is feeling better, denies any chills, he is on accommodation of Zosyn and Levaquin, he has not is a sputum sample for culture, blood culture has shown no growth at the 24-hour felicia. Afebrile, hemodynamically stable, room air pulse ox is 92%. Echocardiogram results have been reviewed, showing mild concentric left ventricular hypertrophy, preserved systolic function with an EF of 55-60%, mild mitral and mild tricuspid regurg, no evidence of pulmonary hypertension. PA systolic is 35.5 mmHg. Today's labs have been reviewed, and patient is neutropenic, with a white blood cell count of 3.6, hemoglobin is 12.3, platelet count is 61, electrolytes are within normal limits, BUN is 14 creatinine is 0.52. Anion gap is at 5. CRP was elevated at 32. Patient is on insulin infusion currently at 6 units per hour. Maintenance IV fluids 0.9 normal saline at rate of 20 ML per hour. Objective - Vital Signs Vital signs: Vital Signs Temp 98 F 08/10/19 08:00 Pulse 88 08/10/19 08:00 Resp 20 08/10/19 08:00 BP 105/59 08/10/19 08:00 Pulse Ox 92 L 08/10/19 08:00 Intake & Output 08/09/19 08/10/19 08/10/19 18:59 06:59 18:59 Intake Total 1815.334 722.399 256.883 Balance 1815.334 722.399 256.883 Weight 72.9 kg Intake: IV 180 Levofloxacin 750Mg-D5w 100 Pmx 750 mg In Dextrose/ Water 1 150ml.bag @ 100 mls/hr IVPB Q24H [facility] Rx#: [id number] Sodium Chloride 0.9% 1, 80 000 ml @ 20 mls/hr IV . Q24H [facility] Rx#:[id number] Intake, IV Titration 53.334 128.399 16.883 Amount Insulin Regular 100 unit 53.334 128.399 16.883 In Sodium Chloride 0.9% 100 ml @ Titrate IV .Q0M [facility] Rx#:[id number] Oral 1582 [id number] Other: Voiding Method Toilet Toilet # Voids 2 - Exam GENERAL EXAM: Alert, pleasant, 44-year-old white male, slightly pale, but no acute distress comfortable in no apparent distress. Patient does experience right lower chest discomfort with repositioning. Clubbing noted involving digits of his bilateral hands HEAD: Normocephalic/atraumatic. EYES: Normal reaction of pupils, equal size. Conjunctiva pink, sclera white. NOSE: Clear with pink turbinates. THROAT: No erythema or exudates. NECK: No masses, no JVD, no thyroid enlargement, no adenopathy. CHEST: No chest wall deformity. Symmetrical expansion. LUNGS: Equal air entry with fine needle crackles over bilateral bases, left mid lung posteriorly CVS: Regular rate and rhythm, normal S1 and S2, no gallops, no murmurs, no rubs ABDOMEN: Soft, nontender. No hepatosplenomegaly, normal bowel sounds, no guarding or rigidity. EXTREMITIES: No clubbing, no edema, no cyanosis, 2+ pulses and upper and lower extremities. MUSCULOSKELETAL: Muscle strength and tone normal. SPINE: No scoliosis or deformity SKIN: No rashes, mild bruising on the posterior right chest CENTRAL NERVOUS SYSTEM: Alert and oriented -3. No focal deficits, tone is normal in all 4 extremities. PSYCHIATRIC: Alert and oriented -3. Appropriate affect. Intact judgment and insight. - Labs CBC & Chem 7: 08/10/19 06:02 08/10/19 06:02 Labs: Abnormal Lab Results - Last 24 Hours (Table) 08/09/19 08/09/19 08/09/19 Range/Units 11:41 16:42 18:13 WBC (3.8-10.6) k/uL RBC (4.30-5.90) m/uL Hgb (13.0-17.5) gm/dL MCV (80.0-100.0) fL Plt Count (150-450) k/uL Lymphocytes # (1.0-4.8) k/uL Creatinine (0.66-1.25) mg/dL Glucose (74-99) mg/dL POC Glucose (mg/dL) 349 H 394 H 487 H (75-99) mg/dL C-Reactive Protein (<10.0) mg/L 08/09/19 08/09/19 08/09/19 Range/Units 18:46 19:19 19:49 WBC (3.8-10.6) k/uL RBC (4.30-5.90) m/uL Hgb (13.0-17.5) gm/dL MCV (80.0-100.0) fL Plt Count (150-450) k/uL Lymphocytes # (1.0-4.8) k/uL Creatinine (0.66-1.25) mg/dL Glucose (74-99) mg/dL POC Glucose (mg/dL) 505 H 423 H 375 H (75-99) mg/dL C-Reactive Protein (<10.0) mg/L 08/09/19 08/10/19 08/10/19 Range/Units 21:52 00:11 01:48 WBC (3.8-10.6) k/uL RBC (4.30-5.90) m/uL Hgb (13.0-17.5) gm/dL MCV (80.0-100.0) fL Plt Count (150-450) k/uL Lymphocytes # (1.0-4.8) k/uL Creatinine (0.66-1.25) mg/dL Glucose (74-99) mg/dL POC Glucose (mg/dL) 291 H 458 H 462 H (75-99) mg/dL C-Reactive Protein (<10.0) mg/L 08/10/19 08/10/19 08/10/19 Range/Units 03:42 06:02 06:02 WBC 3.6 L (3.8-10.6) k/uL RBC 3.72 L (4.30-5.90) m/uL Hgb 12.3 L (13.0-17.5) gm/dL MCV 105.6 H (80.0-100.0) fL Plt Count 61 L (150-450) k/uL Lymphocytes # 0.7 L (1.0-4.8) k/uL Creatinine 0.59 L (0.66-1.25) mg/dL Glucose 241 H (74-99) mg/dL POC Glucose (mg/dL) 368 H (75-99) mg/dL C-Reactive Protein 32.0 H (<10.0) mg/L 08/10/19 08/10/19 08/10/19 Range/Units 06:06 07:42 09:47 WBC (3.8-10.6) k/uL RBC (4.30-5.90) m/uL Hgb (13.0-17.5) gm/dL MCV (80.0-100.0) fL Plt Count (150-450) k/uL Lymphocytes # (1.0-4.8) k/uL Creatinine (0.66-1.25) mg/dL Glucose (74-99) mg/dL POC Glucose (mg/dL) 227 H 272 H 288 H (75-99) mg/dL C-Reactive Protein (<10.0) mg/L Microbiology - Last 24 Hours (Table) 08/08/19 11:02 Blood Culture - Preliminary Blood No Growth after 24 hours Assessment and Plan Plan: Assessment: #1. Acute hypoxemic respiratory failure related to possibility of multifocal pneumonia, with possibility of aspiration, atypical infection, hypersensitivity pneumonitis versus neoplastic process, chest x-ray and CTA chest both showed diffuse patchy and confluent infiltrates involving both lungs #2. Hypoglycemic episodes and falls at home #3. Right lower chest wall pain likely related to recent falls #4. Mild lactic acidosis, rule out sepsis, improved with IV hydration #5. Diabetic ketoacidosis, resolved, and on today's labs anion gap has closed #6. Lifetime nonsmoker #7. History of EtOH abuse currently in remission for the past 2 years #8. History of liver cirrhosis #9. History of hepatitis C #9. 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 Marijuana user Plan: Continue current antibiotic coverage, echocardiogram results have been noted, no evidence of pulmonary hypertension, preserved left ventricle systolic function, and mild mitral and tricuspid regurgitation no major valvular abnormality. We'll proceed with the bronchoscopy with BAL and transbronchial biopsy this afternoon at 12 PM, patient has been nothing by mouth for the procedure. Vital signs are stable, today's labs have been noted. We'll follow I performed a history & physical examination of the patient and discussed their management with my nurse practitioner, Brenda Garcia. I reviewed the nurse practitioner's note and agree with the documented findings and plan of care. Lung sounds are positive for fine crackles over left lower and left mid lung posteriorly fine crackles over right base. The findings and the impression was discussed with the patient. I attest to the documentation by the nurse practit aureliano. Time with Patient: Less than 30
[2019-08-10 11:42] LABS: Glucose,Whole Blood 247 mg/dL (75-99)
[2019-08-10 12:04] LABS: HIV 1 AB Non-Reactive (Non-Reactive); HIV 2 AB Non-Reactive (Non-Reactive); HIV AB P24 Non-Reactive (Non-Reactive); HIV P24 AG Non-Reactive (Non-Reactive)
[2019-08-10] MEDS ORDERED: MIDAZOLAM 2 MG/2 ML VIAL ONE (12:05)
[2019-08-10] MEDS ORDERED: LIDOCAINE 1% INJ 10MG/ML (20 ML MDV) ONE (12:05)
[2019-08-10] MEDS ORDERED: PROPOFOL 10 MG/ML 20 ML VIAL IV ONE (12:05)
[2019-08-10] MEDS ORDERED: IV FLUID CONTINUATION 1,000 ML IV ONE ×2 (12:06)
[2019-08-10] MEDS ORDERED: LIDOCAINE 2% INJ 20 MG/ML INTRATRACH ONE (12:24)
--- NOTE | 2019-08-10 13:20 | XR ---
EXAMINATION TYPE: XR chest 1V portable DATE OF EXAM: 08/10/2019 COMPARISON: 08/08/2019 HISTORY: post bronch and biopsies TECHNIQUE: Single frontal view of the chest is obtained. FINDINGS: No evidence for pneumothorax. Scattered patchy infiltrates and areas of nodularity persists although appear to be improving particularly about the left mid lung zone. IMPRESSION: 1. No evidence for pneumothorax. Improving infiltrates and areas of nodularity.
--- NOTE | 2019-08-10 13:30 | FL ---
EXAMINATION TYPE: FL bronchoscopy DATE OF EXAM: 08/10/2019 CLINICAL HISTORY: Lt Lower Lobe Biopsies TECHNIQUE: Fluoroscopy. 19sec fluoro time, 1 image scanned IMPRESSION: As Above.
[2019-08-10 13:48] LABS: Glucose,Whole Blood 285 mg/dL (75-99)
[2019-08-10] MEDS: INSULIN REGULAR 100 UNIT in SODIUM CHLORIDE 0.9% 100 ML IV SCH (13:50)
--- NOTE | 2019-08-10 14:23 | PCN ---
PROCEDURE NOTE OPERATIVE REPORT: Bronchoscopy, bronchoalveolar lavage of the lingula, and multiple transbronchial biopsies of the superior lingula using fluoroscopy. PREOPERATIVE DIAGNOSIS: Extensive bilateral pneumonia. POSTOPERATIVE DIAGNOSIS: Extensive bilateral pneumonia. ANESTHESIA USED: IV conscious sedation. PROCEDURE: Patient was placed in a supine position, we monitored O2 saturation saturation continuously, blood pressure was intermittently monitored, and cardiac rhythm was continuously monitored. After adequate IV conscious sedation, the bronchoscope was inserted through the left naris down to the area of the vocal cords, which were noted to be patent. Lidocaine was applied over the vocal cords and the bronchoscope was advanced further down to the trachea. Thorough examination was done of the trachea, talisha, right upper lobe, right middle lobe, right lower lobe, left upper lobe, lingula and left lower lobe. There was evidence of hyperemic mucosa throughout. But there was no evidence of any significant purulent secretions. Then the lavage was done of the superior segment of the lingula, and the fluid was sent for different diagnostic studies. Then, under fluoroscopy I was able to do multiple transbronchial biopsies of the superior lingula, and these biopsies were transbronchial, sent for different diagnostic studies. Procedure was well tolerated. Chest x-ray post bronchoscopy showed no evidence of any complication. MMODL / IJN: [id number] /
[2019-08-10] MEDS: LEVOFLOXACIN 750 MG TAB PO SCH (14:58)
--- NOTE | 2019-08-10 15:29 | PN ---
PROGRESS NOTE DATE OF SERVICE: 08/10/2019 REASON FOR FOLLOWUP: Pneumonia. INTERVAL HISTORY: The patient is currently afebrile. Patient is breathing comfortably. The patient is status post bronchoscopy. The patient tolerated the procedure. No nausea, no vomiting. No abdominal pain, no diarrhea. PHYSICAL EXAMINATION: Blood pressure 118/65 with a pulse of 81, temperature 98, he is 93% on 2 L nasal cannula. General description is a middle-aged male, lying in bed in no distress. RESPIRATORY SYSTEM: Unlabored breathing, decreased breath sounds in the base, with no wheeze. HEART: S1, S2. Regular rate and rhythm. ABDOMEN: Soft, no tenderness. EXTREMITIES: No edema of the feet. LABS: Hemoglobin is 12.1, white count of 3.6, BUN of 14, creatinine 0.59. Blood culture so far negative. Bronchoscopy cultures currently pending. DIAGNOSTIC IMPRESSION AND PLAN: Patient admitted to the hospital with syncopal episode of falls. This patient did have a low-grade fever and concern for pneumonia. The patient is status post bronchoscopy. Patient covered with Zosyn will continue while waiting for the culture to finalize. Continue supportive care. MMODL / IJN: [id number] /
[2019-08-10 15:55] LABS: Glucose,Whole Blood 313 mg/dL (75-99)
[2019-08-10 16:40] LABS: Appearance,BF Cloudy; Color,BF Pink; Nucleated Cells, Body Fluid 950 /uL; RBC, Body Fluid 2800 /uL
[2019-08-10 16:43] LABS: Mononuclear WBC,Body Fluid 15 %; Polynuclear WBC,Body Fluid 85 %; Total Cells Counted,Body Fluid 100
--- NOTE | 2019-08-10 17:00 | P.PN ---
Subjective Progress Note Date: 08/10/19 Principal diagnosis: Acute hypoxemic respiratory failure Extensive Aspiration pneumonia versus hypersensitivity pneumonitis; rule out neoplastic process Status post bronchoscopy with BAL and multiple transbronchial biopsies of superior lingula using fluoroscopy 08/10/2019 patient seen and evaluated in room in follow-up on an elective care unit, patient is status post bronchoscopy with BAL and multiple transbronchial biopsies of the superior lingula; constipation and extensive bilateral pneumonia he states his breathing is improving, still has right-sided chest wall soreness, difficult for him to reposition, he states overall she is feeling better Patient remains on Zosyn and Levaquin, he has not is a sputum sample for culture, blood culture has shown no growth at the 24-hour felicia. Afebrile, hemodynamically stable, room air pulse ox is 92%. Echocardiogram results have been reviewed, showing mild concentric left ventricular hypertrophy, preserved systolic function with an EF of 55-60%, mild mitral and mild tricuspid regurg, no evidence of pulmonary hypertension. PA systolic is 35.5 mmHg. Lab review reveals patient is neutropenic, with a white blood cell count of 3.6, hemoglobin is 12.3, platelet count is 61, electrolytes are within normal limits, BUN is 14 creatinine is 0.52. Anion gap is at 5. CRP was elevated at 32. Patient is on insulin infusion currently at 6 units per hour. Maintenance IV fluids 0.9 normal saline at rate of 20 ML per hour. Objective - Vital Signs Vital signs: Vital Signs Temp 98 F 08/10/19 08:00 Pulse 85 08/10/19 11:49 Resp 20 08/10/19 11:49 BP 129/82 08/10/19 11:49 Pulse Ox 93 L 08/10/19 11:49 Intake & Output 08/09/19 08/10/19 08/10/19 18:59 06:59 18:59 Intake Total 1815.334 722.399 260.267 Balance 1815.334 722.399 260.267 Weight 72.9 kg Intake: IV 180 Levofloxacin 750Mg-D5w 100 Pmx 750 mg In Dextrose/ Water 1 150ml.bag @ 100 mls/hr IVPB Q24H [facility] Rx#: [id number] Sodium Chloride 0.9% 1, 80 000 ml @ 20 mls/hr IV . Q24H [facility] Rx#:[id number] Intake, IV Titration 53.334 128.399 20.267 Amount Insulin Regular 100 unit 53.334 128.399 20.267 In Sodium Chloride 0.9% 100 ml @ Titrate IV .Q0M [facility] Rx#:[id number] Oral 1582 [id number] Other: Voiding Method Toilet Toilet Toilet # Voids 2 1 - Exam GENERAL: The patient is alert and oriented x3, not in any acute distress. Well developed, well nourished. Appears to be fatigued severely HEENT: Pupils are round and equally reacting to light. EOMI. No scleral icterus. No conjunctival pallor. Normocephalic, . No pharyngeal erythema. No thyromegaly. Patient has a bruise and the skin breakdown on the left side of face CARDIOVASCULAR: S1 and S2 present. No murmurs, rubs, or gallops. PULMONARY: crackles bilaterally improved fairly good air entry into bilateral lung gore. ABDOMEN: Soft, nontender, nondistended, normoactive bowel sounds. No palpable organomegaly. MUSCULOSKELETAL: No joint swelling or deformity. EXTREMITIES: No cyanosis, clubbing, or pedal edema. NEUROLOGICAL: Gross neurological examination did not reveal any focal deficits. SKIN: No rashes. - Labs CBC & Chem 7: 08/10/19 06:02 08/10/19 06:02 Labs: Abnormal Lab Results - Last 24 Hours (Table) 08/09/19 08/09/19 08/09/19 Range/Units 16:42 18:13 18:46 WBC (3.8-10.6) k/uL RBC (4.30-5.90) m/uL Hgb (13.0-17.5) gm/dL MCV (80.0-100.0) fL Plt Count (150-450) k/uL Lymphocytes # (1.0-4.8) k/uL Creatinine (0.66-1.25) mg/dL Glucose (74-99) mg/dL POC Glucose (mg/dL) 394 H 487 H 505 H (75-99) mg/dL C-Reactive Protein (<10.0) mg/L Procalcitonin (0.02-0.09) ng/mL 08/09/19 08/09/19 08/09/19 Range/Units 19:19 19:49 21:52 WBC (3.8-10.6) k/uL RBC (4.30-5.90) m/uL Hgb (13.0-17.5) gm/dL MCV (80.0-100.0) fL Plt Count (150-450) k/uL Lymphocytes # (1.0-4.8) k/uL Creatinine (0.66-1.25) mg/dL Glucose (74-99) mg/dL POC Glucose (mg/dL) 423 H 375 H 291 H (75-99) mg/dL C-Reactive Protein (<10.0) mg/L Procalcitonin (0.02-0.09) ng/mL 08/10/19 08/10/19 08/10/19 Range/Units 00:11 01:48 03:42 WBC (3.8-10.6) k/uL RBC (4.30-5.90) m/uL Hgb (13.0-17.5) gm/dL MCV (80.0-100.0) fL Plt Count (150-450) k/uL Lymphocytes # (1.0-4.8) k/uL Creatinine (0.66-1.25) mg/dL Glucose (74-99) mg/dL POC Glucose (mg/dL) 458 H 462 H 368 H (75-99) mg/dL C-Reactive Protein (<10.0) mg/L Procalcitonin (0.02-0.09) ng/mL 08/10/19 08/10/19 08/10/19 Range/Units 06:02 06:02 06:02 WBC 3.6 L (3.8-10.6) k/uL RBC 3.72 L (4.30-5.90) m/uL Hgb 12.3 L (13.0-17.5) gm/dL MCV 105.6 H (80.0-100.0) fL Plt Count 61 L (150-450) k/uL Lymphocytes # 0.7 L (1.0-4.8) k/uL Creatinine 0.59 L (0.66-1.25) mg/dL Glucose 241 H (74-99) mg/dL POC Glucose (mg/dL) (75-99) mg/dL C-Reactive Protein 32.0 H (<10.0) mg/L Procalcitonin 1.16 H (0.02-0.09) ng/mL 08/10/19 08/10/19 08/10/19 Range/Units 06:06 07:42 09:47 WBC (3.8-10.6) k/uL RBC (4.30-5.90) m/uL Hgb (13.0-17.5) gm/dL MCV (80.0-100.0) fL Plt Count (150-450) k/uL Lymphocytes # (1.0-4.8) k/uL Creatinine (0.66-1.25) mg/dL Glucose (74-99) mg/dL POC Glucose (mg/dL) 227 H 272 H 288 H (75-99) mg/dL C-Reactive Protein (<10.0) mg/L Procalcitonin (0.02-0.09) ng/mL 08/10/19 Range/Units 11:41 WBC (3.8-10.6) k/uL RBC (4.30-5.90) m/uL Hgb (13.0-17.5) gm/dL MCV (80.0-100.0) fL Plt Count (150-450) k/uL Lymphocytes # (1.0-4.8) k/uL Creatinine (0.66-1.25) mg/dL Glucose (74-99) mg/dL POC Glucose (mg/dL) 247 H (75-99) mg/dL C-Reactive Protein (<10.0) mg/L Procalcitonin (0.02-0.09) ng/mL Microbiology - Last 24 Hours (Table) 08/08/19 11:02 Blood Culture - Preliminary Blood No Growth after 24 hours Assessment and Plan Assessment: -Chest pain pleuritic most probably related to pneumonia and acute lung injury chest x-ray shows diffuse infiltrate patient was started on levofloxacin influenza testing is negative patient is presently septic probably because of atypical pneumonia (a CAT scan to better characterize and also to rule out pulmonary embolism. Patient sepsis appears to be severe as his admission serum lactate was very high -Diabetic ketoacidosis ketoacidosis anion gap resolved and patient will be resumed on IV fluids once we get the CAT scan patient is still bit hyponatremic which appears to be hypovolemic hyponatremia patient will be started on inhalational treatments. Patient's insulin regimen as mentioned above -History of for cirrhosis although patient doesn't have any ascites at this time. Patient did have history of hepatitis C and used to be an alcoholic in the past Diabetes mellitus, unsure whether this type in a type II definitely has insulin deficiency is in DKA at this time. DVT prophylaxis with subcutaneous heparin and GI prophylaxis with Pepcid
[2019-08-10 17:03] LABS: Glucose,Whole Blood 316 mg/dL (75-99)
[2019-08-10 19:27] LABS: Glucose,Whole Blood 241 mg/dL (75-99)
[2019-08-10 21:06] LABS: Glucose,Whole Blood 191 mg/dL (75-99)
[2019-08-10 23:13] LABS: Glucose,Whole Blood 225 mg/dL (75-99)
[2019-08-11] MEDS: HEPARIN SODIUM,PORCINE 5,000 UNIT/ML 1 ML VIAL SQ SCH ×3 (00:35→17:36)
[2019-08-11 01:11] LABS: Glucose,Whole Blood 356 mg/dL (75-99)
[2019-08-11 03:18] LABS: Glucose,Whole Blood 341 mg/dL (75-99)
[2019-08-11 05:30] LABS: Glucose,Whole Blood 201 mg/dL (75-99)
[2019-08-11 06:34] LABS: Basophils % (A) 0 %; Eosinophils % (A) 0 %; HGB 11.8 gm/dL (13.0-17.5); Lymphocytes # (A) 0.8 k/uL (1.0-4.8); Lymphocytes % (A) 17 %; MCH 32.9 pg (25.0-35.0); MCV 106.3 fL (80.0-100.0); Macrocytosis Moderate; Mean Platelet Volume 7.3; Monocytes # (A) 0.2 k/uL (0-1.0); Monocytes % (A) 5 %; Neutrophils # (A) 3.6 k/uL (1.3-7.7); Neutrophils % (A) 74 %; RBC 3.57 m/uL (4.30-5.90); WBC 4.8 k/uL (3.8-10.6)
[2019-08-11 06:39] LABS: Platelet Count 59 k/uL (150-450)
[2019-08-11 06:46] LABS: African American GFR (CKD) >90 (>60 ml/min/1.73 sqM); Anion Gap 5 mmol/L; Blood Urea Nitrogen 16 mg/dL (9-20); Calcium 8.6 mg/dL (8.4-10.2); Carbon Dioxide 28 mmol/L (22-30); Chloride 108 mmol/L (98-107); Glucose 173 mg/dL (74-99); Non-African American GFR(CKD) >90 (>60 ml/min/1.73 sqM); Potassium 4.1 mmol/L (3.5-5.1); Sodium 141 mmol/L (137-145)
[2019-08-11] MEDS: FAMOTIDINE 20 MG TAB PO SCH ×2 (07:23→20:09)
[2019-08-11] MEDS: methylPREDNISolone SOD SUCCI 40 MG/ML 1 ML VIAL IV SCH ×2 (07:23→20:09)
[2019-08-11] MEDS: INSULIN ASPART (NovoLOG) 100 UNIT/ML VIAL SQ SCH ×3 (07:23→17:39)
[2019-08-11] MEDS: PIPERACILLIN-TAZOBACTAM 3.375 GM in SODIUM CHLORIDE 0.9% 100 ML IVPB SCH ×2 (07:23→17:36)
[2019-08-11] MEDS: KETOROLAC 30 MG/ML 1 ML VIAL IVP PRN (07:29)
[2019-08-11 07:32] LABS: Glucose,Whole Blood 129 mg/dL (75-99)
[2019-08-11] MEDS: IPRATROPIUM-ALBUTEROL 3 ML NEB INHALATION SCH ×4 (07:34→19:45)
[2019-08-11] MEDS: INSULIN REGULAR 100 UNIT in SODIUM CHLORIDE 0.9% 100 ML IV SCH (08:00)
[2019-08-11 08:08] LABS: Glucose,Whole Blood 149 mg/dL (75-99)
[2019-08-11 10:15] LABS: Glucose,Whole Blood 248 mg/dL (75-99)
[2019-08-11] MEDS: LEVOFLOXACIN 750 MG TAB PO SCH (11:35)
[2019-08-11 12:03] LABS: Glucose,Whole Blood 312 mg/dL (75-99)
--- NOTE | 2019-08-11 13:24 | P.PN ---
Subjective Progress Note Date: 08/11/19 Principal diagnosis: acute hypoxic respiratory failure secondary to bilateral multifocal pneumonia.possible aspiration. This is a 44-year-old white male patient who currently does not have a primary care provider, but used to see Julien Perez PA-C, who came into the emergency de partment yesterday on 08/08/2019 with complaints of passing out, hypoglycemic episodes, right chest wall pain, cough, increased difficulty breathing. Patient is a type II diabetic and he takes NovoLog 70/30 20 units in the morning and 30 units at bedtime, and his hypoglycemic episodes started last week when she was repeatedly falling related to low blood sugars, and he admits to passing out. Sustained abrasion on his left cheek, and he has mild bruising on his right posterior chest, and pain and tenderness in the right anterior lower chest along the rib margin. Denied any fever, but admits to having chills. Has been having some night sweats, his cough is raspy but nonproductive. Denies history of smoking, does occasionally smoke marijuana, admits to trying vaping one time in the past. 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 He stated he bought a house for $500 that needs a lot of repairs, and apparently has mold in it that patient cleaned up himself with bleach. Other medical history includes cirrhosis of the liver, EtOH abuse, currently in remission, hep C, and family history of diabetes. Brain CT showed no acute abnormality, chest x-ray of the ribs showed diffuse bilateral infiltrates, no pneumothorax, possibility of atypical pneumonia and neoplastic process could not be excluded. This was followed with the chest CTA, revealing no definite evidence of pulmonary embolism, extensive patchy and confluent airspace disease left greater than right, with increased consolidation in the left lower lobe and left upper lobe. Patient was started on empiric antibiotics in the form of Levaquin, initially he was afebrile, today he is having a low-grade fever. Hemodynamically stable, he required supplemental oxygen initiation today with pulse ox of 80% on room air. Not coughing up any sputum. Lab work was negative for any leukocytosis, white blood cell count was 5.4, hemoglobin is 13.6, coagulation profile was within normal limits, sodium is 131, potassium is 4.1, the rest of the electrolytes were within normal limits, CO2 is 25, anion gap was 5, BUN is 9, creatinine 0.47, influenza screen was negative, plasma lactic acid was mildly elevated at 3.1, and serum phosphorus was 1.5. Patient was fluid resuscitated, and his lactic acid within normal limits. We're asked to see the patient for evaluation of diffuse infiltrates seen on chest x-ray and CT scan of the chest. On 08/10/2019 patient seen in follow-up on an elective care unit, he states his breathing is improving, still has right-sided chest wall soreness, difficult for him to reposition, he states overall she is feeling better, denies any chills, he is on accommodation of Zosyn and Levaquin, he has not is a sputum sample for culture, blood culture has shown no growth at the 24-hour felicia. Afebrile, hemodynamically stable, room air pulse ox is 92%. Echocardiogram results have been reviewed, showing mild concentric left ventricular hypertrophy, preserved systolic function with an EF of 55-60%, mild mitral and mild tricuspid regurg, no evidence of pulmonary hypertension. PA systolic is 35.5 mmHg. Today's labs have been reviewed, and patient is neutropenic, with a white blood cell count of 3.6, hemoglobin is 12.3, platelet count is 61, electrolytes are within normal limits, BUN is 14 creatinine is 0.52. Anion gap is at 5. CRP was elevated at 32. Patient is on insulin infusion currently at 6 units per hour. Maintenance IV fluids 0.9 normal saline at rate of 20 ML per hour. On 08/11/2019, patient was evaluated, remains on the fourth floor, patient is feeling much better. Breathing a lot easier. His results from his transbronchial biopsies are pending. And so far the cultures are negative.clinically however the patient is feeling much better, breathing a lot easier.WBC count today is 4.8 hemoglobin is 11.8. Celexa lites are normal.the BAL is mostly showing significant polymorphonuclears, hence likely pointing to infection. Patient remains on antibiotics and bronchodilators as well as steroids, and obviously he seems to be responding fairly well to treatment. Even his follow-up chest x-rayyesterday showed slight improvement especially in the right sided infiltrates. Patient had a normal sed rate. Hence this speaks against underlying vasculitis. Or connective tissue disease process.HIV screening has been negative. Influenza screening has been negative.viral cultures from the BAL are pending. Cultures and biopsies from bronchoscopy are pending. Objective - Vital Signs Vital signs: Vital Signs Temp 98.0 F 08/11/19 05:15 Pulse 80 08/11/19 11:40 Resp 16 08/11/19 05:15 BP 110/66 08/11/19 05:15 Pulse Ox 92 L 08/11/19 05:15 Intake & Output 08/10/19 08/11/19 08/11/19 18:59 06:59 18:59 Intake Total 1383.667 75.892 9.500 Output Total 1 Balance 1383.667 74.892 9.500 Weight 73 kg Intake: IV 600 Insulin Regular 100 unit 40 In Sodium Chloride 0.9% 100 ml @ Titrate IV .Q0M JORDAN Rx#:[id number] Piperacillin-Tazobactam 3 100 .375 gm In Sodium Chloride 0.9% 100 ml @ 25 mls/hr IVPB Q8HR JORDAN Rx# :[id number] Sodium Chloride 0.9% 1, 160 000 ml @ 20 mls/hr IV . Q24H JORDAN Rx#:[id number] Intake, IV Titration 43.667 75.892 9.500 Amount Insulin Regular 100 unit 43.667 75.892 9.500 In Sodium Chloride 0.9% 100 ml @ Titrate IV .Q0M JORDAN Rx#:[id number] Oral 740 Output: Urine 1 Other: Voiding Method Toilet # Voids 1 1 - Exam Physical Exam: Revealed a 44-year-old white male, pleasant, in no distress. Head: Atraumatic, normocephalic. HEENT:[Neck is supple.] [No neck masses.] [No thyromegaly.] [No JVD.]left sided superficial facial ulceration is noted Chest: [minimal crackles at the bases no rhonchi, no wheezes. Symmetrical chest expansion..] Cardiac Exam: [Normal S1 and S2, no S3 gallop, no murmur.] Abdomen: [Soft, nontender, no megaly, no rebound, no guarding, normal bowel sounds.] Extremities: positive clubbing, no edema, no cyanosis.]2+ pulses bilaterally. Neurological Exam: alert and oriented 3.[No focal neurologic deficit.] psychiatric: Normal mood, affect and normal mental status examination. Musculoskeletal: Normal range of motion, no deformities. Lymphatics: No lymphadenopathy. Skin: Left sided facial abrasion or ulceration noted. - Labs CBC & Chem 7: 08/11/19 05:37 08/11/19 05:37 Labs: Abnormal Lab Results - Last 24 Hours (Table) 08/10/19 08/10/19 08/10/19 Range/Units 06:02 13:47 15:43 RBC (4.30-5.90) m/uL Hgb (13.0-17.5) gm/dL Hct (39.0-53.0) % MCV (80.0-100.0) fL Plt Count (150-450) k/uL Lymphocytes # (1.0-4.8) k/uL ESR 22 H (0-15) mm/hr Chloride (98-107) mmol/L Creatinine (0.66-1.25) mg/dL Glucose (74-99) mg/dL POC Glucose (mg/dL) 285 H 313 H (75-99) mg/dL 08/10/19 08/10/19 08/10/19 Range/Units 16:59 19:23 21:05 RBC (4.30-5.90) m/uL Hgb (13.0-17.5) gm/dL Hct (39.0-53.0) % MCV (80.0-100.0) fL Plt Count (150-450) k/uL Lymphocytes # (1.0-4.8) k/uL ESR (0-15) mm/hr Chloride (98-107) mmol/L Creatinine (0.66-1.25) mg/dL Glucose (74-99) mg/dL POC Glucose (mg/dL) 316 H 241 H 191 H (75-99) mg/dL 08/10/19 08/11/19 08/11/19 Range/Units 23:00 00:58 03:04 RBC (4.30-5.90) m/uL Hgb (13.0-17.5) gm/dL Hct (39.0-53.0) % MCV (80.0-100.0) fL Plt Count (150-450) k/uL Lymphocytes # (1.0-4.8) k/uL ESR (0-15) mm/hr Chloride (98-107) mmol/L Creatinine (0.66-1.25) mg/dL Glucose (74-99) mg/dL POC Glucose (mg/dL) 225 H 356 H 341 H (75-99) mg/dL 08/11/19 08/11/19 08/11/19 Range/Units 05:14 05:37 05:37 RBC 3.57 L (4.30-5.90) m/uL Hgb 11.8 L (13.0-17.5) gm/dL Hct 38.0 L (39.0-53.0) % MCV 106.3 H (80.0-100.0) fL Plt Count 59 L (150-450) k/uL Lymphocytes # 0.8 L (1.0-4.8) k/uL ESR (0-15) mm/hr Chloride 108 H (98-107) mmol/L Creatinine 0.61 L (0.66-1.25) mg/dL Glucose 173 H (74-99) mg/dL POC Glucose (mg/dL) 201 H (75-99) mg/dL 08/11/19 08/11/19 08/11/19 Range/Units 07:08 07:55 10:12 RBC (4.30-5.90) m/uL Hgb (13.0-17.5) gm/dL Hct (39.0-53.0) % MCV (80.0-100.0) fL Plt Count (150-450) k/uL Lymphocytes # (1.0-4.8) k/uL ESR (0-15) mm/hr Chloride (98-107) mmol/L Creatinine (0.66-1.25) mg/dL Glucose (74-99) mg/dL POC Glucose (mg/dL) 129 H 149 H 248 H (75-99) mg/dL 08/11/19 Range/Units 11:49 RBC (4.30-5.90) m/uL Hgb (13.0-17.5) gm/dL Hct (39.0-53.0) % MCV (80.0-100.0) fL Plt Count (150-450) k/uL Lymphocytes # (1.0-4.8) k/uL ESR (0-15) mm/hr Chloride (98-107) mmol/L Creatinine (0.66-1.25) mg/dL Glucose (74-99) mg/dL POC Glucose (mg/dL) 312 H (75-99) mg/dL Microbiology - Last 24 Hours (Table) 08/10/19 12:20 Acid Fast Bacilli Smear - Final Bronchial Washings - Random Acid Fast Bacilli Culture - Preliminary 08/10/19 12:20 Gram Stain - Preliminary Bronchial Washings - Random Bronchial Washings Culture - Preliminary 08/10/19 12:20 Fungal Culture - Preliminary Bronchial Washings - Random 08/09/19 11:46 Blood Culture - Preliminary Blood No Growth after 24 hours 08/09/19 11:50 Blood Culture - Preliminary Blood No Growth after 24 hours 08/08/19 11:02 Blood Culture - Preliminary Blood No Growth after 48 hours Assessment and Plan Assessment: #1. Acute hypoxemic respiratory failure related to possibility of multifocal pneumonia, with possibility of aspiration, atypical infection, hypersensitivity pneumonitis #2. Hypoglycemic episodes and falls at home #3. Right lower chest wall pain likely related to recent falls #4. Mild lactic acidosis, rule out sepsis, improved with IV hydration #5. Diabetic ketoacidosis, resolved, and on today's labs anion gap has closed #6. Lifetime nonsmoker #7. History of EtOH abuse currently in remission for the past 2 years #8. History of liver cirrhosis #9. History of hepatitis C #9. 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 Marijuana user Recommendation: Continue present treatment plan including antibiotics, broncho dilators, steroids, repeat chest x-ray in a.m., expect improvement compared to his initial chest x-ray on admission, and possibly consider discharge planning early next week, hopefully by then we have some answers from the bronchoscopy, BAL, and transbronchial biopsies. We'll continue to follow. Time with Patient: Less than 30
[2019-08-11 14:17] LABS: Glucose,Whole Blood 346 mg/dL (75-99)
[2019-08-11 15:50] LABS: Glucose,Whole Blood 336 mg/dL (75-99)
--- NOTE | 2019-08-11 15:55 | P.PN ---
Subjective Progress Note Date: 08/11/19 Principal diagnosis: Acute hypoxemic respiratory failure Extensive Aspiration pneumonia versus hypersensitivity pneumonitis; rule out neoplastic process Status post bronchoscopy with BAL and multiple transbronchial biopsies of superior lingula using fluoroscopy 08/10/2019 patient seen and evaluated in room in follow-up on an elective care unit, patient is status post bronchoscopy with BAL and multiple transbronchial biopsies of the superior lingula; constipation and extensive bilateral pneumonia he states his breathing is improving, still has right-sided chest wall soreness, difficult for him to reposition, he states overall she is feeling better Patient remains on Zosyn and Levaquin, he has not is a sputum sample for culture, blood culture has shown no growth at the 24-hour felicia. Afebrile, hemodynamically stable, room air pulse ox is 92%. Echocardiogram results have been reviewed, showing mild concentric left ventricular hypertrophy, preserved systolic function with an EF of 55-60%, mild mitral and mild tricuspid regurg, no evidence of pulmonary hypertension. PA systolic is 35.5 mmHg. Lab review reveals patient is neutropenic, with a white blood cell count of 3.6, hemoglobin is 12.3, platelet count is 61, electrolytes are within normal limits, BUN is 14 creatinine is 0.52. Anion gap is at 5. CRP was elevated at 32. Patient is on insulin infusion currently at 6 units per hour. Maintenance IV fluids 0.9 normal saline at rate of 20 ML per hour. 08/11/2019 Patient is seen and evaluated in room at bedside; patient is feeling much better. Breathing a lot easier. results from his transbronchial biopsies are pending; cultures are negative so far; WBC count today is 4.8 hemoglobin is 11.8. Electrolytes are normal BAL is mostly showing significant polymorphonuclears, hence likely pointing to infection. Patient remains on antibiotics and bronchodilators as well as steroids, and obviously he seems to be responding fairly well to treatment; follow-up chest x-ray yesterday showed slight improvement especially in the right sided infiltrates. Patient had a normal sed rate, low possibility of underlying vasculitis/ connective tissue disease process; HIV screening has been negative. Influenza screening has been negative.viral cultures from the BAL are pending. Cultures and biopsies from bronchoscopy are pending. Patient remains on IV Zosyn; pulmonary and ID are following Objective - Vital Signs Vital signs: Vital Signs Temp 98.0 F 08/11/19 05:15 Pulse 88 08/11/19 07:48 Resp 16 08/11/19 05:15 BP 110/66 08/11/19 05:15 Pulse Ox 92 L 08/11/19 05:15 Intake & Output 08/10/19 08/11/19 08/11/19 18:59 06:59 18:59 Intake Total 1383.667 75.892 3.958 Output Total 1 Balance 1383.667 74.892 3.958 Weight 73 kg Intake: IV 600 Insulin Regular 100 unit 40 In Sodium Chloride 0.9% 100 ml @ Titrate IV .Q0M JORD[facility] Rx#:[id number] Piperacillin-Tazobactam 3 100 .375 gm In Sodium Chloride 0.9% 100 ml @ 25 mls/hr IVPB Q8HR JORD[facility] Rx# :[id number] Sodium Chloride 0.9% 1, 160 000 ml @ 20 mls/hr IV . Q24H JROD[facility] Rx#:[id number] Intake, IV Titration 43.667 75.892 3.958 Amount Insulin Regular 100 unit 43.667 75.892 3.958 In Sodium Chloride 0.9% 100 ml @ Titrate IV .Q0M JORDAN Rx#:[id number] Oral 740 Output: Urine 1 Other: Voiding Method Toilet # Voids 1 1 - Exam GENERAL: The patient is alert and oriented x3, not in any acute distress. Well developed, well nourished. Appears to be fatigued severely HEENT: Pupils are round and equally reacting to light. EOMI. No scleral icterus. No conjunctival pallor. Normocephalic, . No pharyngeal erythema. No thyromegaly. Patient has a bruise and the skin breakdown on the left side of face CARDIOVASCULAR: S1 and S2 present. No murmurs, rubs, or gallops. PULMONARY: crackles bilaterally improved fairly good air entry into bilateral lung gore. ABDOMEN: Soft, nontender, nondistended, normoactive bowel sounds. No palpable organomegaly. MUSCULOSKELETAL: No joint swelling or deformity. EXTREMITIES: No cyanosis, clubbing, or pedal edema. NEUROLOGICAL: Gross neurological examination did not reveal any focal deficits. SKIN: No rashes. - Labs CBC & Chem 7: 08/11/19 05:37 08/11/19 05:37 Labs: Abnormal Lab Results - Last 24 Hours (Table) 08/10/19 08/10/19 08/10/19 Range/Units 06:02 06:02 11:41 RBC (4.30-5.90) m/uL Hgb (13.0-17.5) gm/dL Hct (39.0-53.0) % MCV (80.0-100.0) fL Plt Count (150-450) k/uL Lymphocytes # (1.0-4.8) k/uL ESR 22 H (0-15) mm/hr Chloride (98-107) mmol/L Creatinine (0.66-1.25) mg/dL Glucose (74-99) mg/dL POC Glucose (mg/dL) 247 H (75-99) mg/dL Procalcitonin 1.16 H (0.02-0.09) ng/mL 08/10/19 08/10/19 08/10/19 Range/Units 13:47 15:43 16:59 RBC (4.30-5.90) m/uL Hgb (13.0-17.5) gm/dL Hct (39.0-53.0) % MCV (80.0-100.0) fL Plt Count (150-450) k/uL Lymphocytes # (1.0-4.8) k/uL ESR (0-15) mm/hr Chloride (98-107) mmol/L Creatinine (0.66-1.25) mg/dL Glucose (74-99) mg/dL POC Glucose (mg/dL) 285 H 313 H 316 H (75-99) mg/dL Procalcitonin (0.02-0.09) ng/mL 08/10/19 08/10/19 08/10/19 Range/Units 19:23 21:05 23:00 RBC (4.30-5.90) m/uL Hgb (13.0-17.5) gm/dL Hct (39.0-53.0) % MCV (80.0-100.0) fL Plt Count (150-450) k/uL Lymphocytes # (1.0-4.8) k/uL ESR (0-15) mm/hr Chloride (98-107) mmol/L Creatinine (0.66-1.25) mg/dL Glucose (74-99) mg/dL POC Glucose (mg/dL) 241 H 191 H 225 H (75-99) mg/dL Procalcitonin (0.02-0.09) ng/mL 08/11/19 08/11/19 08/11/19 Range/Units 00:58 03:04 05:14 RBC (4.30-5.90) m/uL Hgb (13.0-17.5) gm/dL Hct (39.0-53.0) % MCV (80.0-100.0) fL Plt Count (150-450) k/uL Lymphocytes # (1.0-4.8) k/uL ESR (0-15) mm/hr Chloride (98-107) mmol/L Creatinine (0.66-1.25) mg/dL Glucose (74-99) mg/dL POC Glucose (mg/dL) 356 H 341 H 201 H (75-99) mg/dL Procalcitonin (0.02-0.09) ng/mL 08/11/19 08/11/19 08/11/19 Range/Units 05:37 05:37 07:08 RBC 3.57 L (4.30-5.90) m/uL Hgb 11.8 L (13.0-17.5) gm/dL Hct 38.0 L (39.0-53.0) % MCV 106.3 H (80.0-100.0) fL Plt Count 59 L (150-450) k/uL Lymphocytes # 0.8 L (1.0-4.8) k/uL ESR (0-15) mm/hr Chloride 108 H (98-107) mmol/L Creatinine 0.61 L (0.66-1.25) mg/dL Glucose 173 H (74-99) mg/dL POC Glucose (mg/dL) 129 H (75-99) mg/dL Procalcitonin (0.02-0.09) ng/mL 08/11/19 08/11/19 Range/Units 07:55 10:12 RBC (4.30-5.90) m/uL Hgb (13.0-17.5) gm/dL Hct (39.0-53.0) % MCV (80.0-100.0) fL Plt Count (150-450) k/uL Lymphocytes # (1.0-4.8) k/uL ESR (0-15) mm/hr Chloride (98-107) mmol/L Creatinine (0.66-1.25) mg/dL Glucose (74-99) mg/dL POC Glucose (mg/dL) 149 H 248 H (75-99) mg/dL Procalcitonin (0.02-0.09) ng/mL Microbiology - Last 24 Hours (Table) 08/10/19 12:20 Acid Fast Bacilli Smear - Final Bronchial Washings - Random Acid Fast Bacilli Culture - Preliminary 08/10/19 12:20 Gram Stain - Preliminary Bronchial Washings - Random Bronchial Washings Culture - Preliminary 08/10/19 12:20 Fungal Culture - Preliminary Bronchial Washings - Random 08/09/19 11:46 Blood Culture - Preliminary Blood No Growth after 24 hours 08/09/19 11:50 Blood Culture - Preliminary Blood No Growth after 24 hours 08/08/19 11:02 Blood Culture - Preliminary Blood No Growth after 48 hours Assessment and Plan Assessment: -Chest pain pleuritic most probably related to pneumonia and acute lung injury chest x-ray shows diffuse infiltrate patient was started on levofloxacin influenza testing is negative patient is presently septic probably because of atypical pneumonia (a CAT scan to better characterize and also to rule out pulmonary embolism. Patient sepsis appears to be severe as his admission serum lactate was very high -Diabetic ketoacidosis ketoacidosis anion gap resolved and patient will be resumed on IV fluids once we get the CAT scan patient is still bit hyponatremic which appears to be hypovolemic hyponatremia patient will be started on inhala tional treatments. Patient's insulin regimen as mentioned above -History of for cirrhosis although patient doesn't have any ascites at this time. Patient did have history of hepatitis C and used to be an alcoholic in the past Diabetes mellitus, unsure whether this type in a type II definitely has insulin deficiency is in DKA at this time. DVT prophylaxis with subcutaneous heparin and GI prophylaxis with Pepcid Time with Patient: Greater than 30
[2019-08-11 17:56] LABS: Glucose,Whole Blood 236 mg/dL (75-99)
[2019-08-11 20:08] LABS: Glucose,Whole Blood 236 mg/dL (75-99)
[2019-08-11 22:03] LABS: Glucose,Whole Blood 165 mg/dL (75-99)
[2019-08-12 00:10] LABS: Glucose,Whole Blood 169 mg/dL (75-99)
[2019-08-12] MEDS: PIPERACILLIN-TAZOBACTAM 3.375 GM in SODIUM CHLORIDE 0.9% 100 ML IVPB SCH ×3 (00:20→17:20)
[2019-08-12] MEDS: HEPARIN SODIUM,PORCINE 5,000 UNIT/ML 1 ML VIAL SQ SCH ×3 (00:20→17:19)
[2019-08-12] MEDS: SODIUM CHLORIDE 0.9% 1,000 ML IV SCH ×2 (00:24→23:01)
[2019-08-12 02:16] LABS: Glucose,Whole Blood 263 mg/dL (75-99)
[2019-08-12 04:26] LABS: Glucose,Whole Blood 316 mg/dL (75-99)
[2019-08-12] MEDS: INSULIN REGULAR 100 UNIT in SODIUM CHLORIDE 0.9% 100 ML IV SCH ×2 (06:13→11:00)
[2019-08-12 06:28] LABS: Glucose,Whole Blood 311 mg/dL (75-99)
[2019-08-12 07:02] LABS: Basophils % (A) 0 %; Eosinophils % (A) 0 %; HCT 41.1 % (39.0-53.0); Lymphocytes # (A) 0.8 k/uL (1.0-4.8); Lymphocytes % (A) 21 %; MCH 34.1 pg (25.0-35.0); MCHC 31.5 g/dL (31.0-37.0); Macrocytosis Marked; Mean Platelet Volume 6.9; Monocytes # (A) 0.2 k/uL (0-1.0); Monocytes % (A) 4 %; Neutrophils # (A) 2.7 k/uL (1.3-7.7); Neutrophils % (A) 72 %; RDW 15.2 % (11.5-15.5); WBC 3.8 k/uL (3.8-10.6)
[2019-08-12 07:07] LABS: Platelet Count 51 k/uL (150-450)
[2019-08-12 07:08] LABS: African American GFR (CKD) >90 (>60 ml/min/1.73 sqM); Anion Gap 5 mmol/L; Blood Urea Nitrogen 18 mg/dL (9-20); Calcium 8.7 mg/dL (8.4-10.2); Carbon Dioxide 28 mmol/L (22-30); Chloride 106 mmol/L (98-107); Glucose 321 mg/dL (74-99); Non-African American GFR(CKD) >90 (>60 ml/min/1.73 sqM); Potassium 4.4 mmol/L (3.5-5.1); Sodium 139 mmol/L (137-145)
[2019-08-12 07:59] LABS: Poikilocytosis (M) Present
[2019-08-12] MEDS: FAMOTIDINE 20 MG TAB PO SCH ×2 (08:12→23:00)
[2019-08-12] MEDS: methylPREDNISolone SOD SUCCI 40 MG/ML 1 ML VIAL IV SCH ×2 (08:12→23:00)
[2019-08-12] MEDS: INSULIN ASPART (NovoLOG) 100 UNIT/ML VIAL SQ SCH ×4 (08:13→23:01)
[2019-08-12 08:14] LABS: Glucose,Whole Blood 251 mg/dL (75-99)
[2019-08-12] MEDS: IPRATROPIUM-ALBUTEROL 3 ML NEB INHALATION SCH ×4 (09:18→20:35)
[2019-08-12 11:06] LABS: Glucose,Whole Blood 271 mg/dL (75-99)
--- NOTE | 2019-08-12 11:49 | P.PN ---
Subjective Progress Note Date: 08/12/19 Principal diagnosis: acute hypoxic respiratory failure secondary to bilateral multifocal pneumonia.possible aspiration. This is a 44-year-old white male patient who currently does not have a primary care provider, but used to see Julien Perez PA-C, who came into the emergency de partment yesterday on 08/08/2019 with complaints of passing out, hypoglycemic episodes, right chest wall pain, cough, increased difficulty breathing. Patient is a type II diabetic and he takes NovoLog 70/30 20 units in the morning and 30 units at bedtime, and his hypoglycemic episodes started last week when she was repeatedly falling related to low blood sugars, and he admits to passing out. Sustained abrasion on his left cheek, and he has mild bruising on his right posterior chest, and pain and tenderness in the right anterior lower chest along the rib margin. Denied any fever, but admits to having chills. Has been having some night sweats, his cough is raspy but nonproductive. Denies history of smoking, does occasionally smoke marijuana, admits to trying vaping one time in the past. 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 He stated he bought a house for $500 that needs a lot of repairs, and apparently has mold in it that patient cleaned up himself with bleach. Other medical history includes cirrhosis of the liver, EtOH abuse, currently in remission, hep C, and family history of diabetes. Brain CT showed no acute abnormality, chest x-ray of the ribs showed diffuse bilateral infiltrates, no pneumothorax, possibility of atypical pneumonia and neoplastic process could not be excluded. This was followed with the chest CTA, revealing no definite evidence of pulmonary embolism, extensive patchy and confluent airspace disease left greater than right, with increased consolidation in the left lower lobe and left upper lobe. Patient was started on empiric antibiotics in the form of Levaquin, initially he was afebrile, today he is having a low-grade fever. Hemodynamically stable, he required supplemental oxygen initiation today with pulse ox of 80% on room air. Not coughing up any sputum. Lab work was negative for any leukocytosis, white blood cell count was 5.4, hemoglobin is 13.6, coagulation profile was within normal limits, sodium is 131, potassium is 4.1, the rest of the electrolytes were within normal limits, CO2 is 25, anion gap was 5, BUN is 9, creatinine 0.47, influenza screen was negative, plasma lactic acid was mildly elevated at 3.1, and serum phosphorus was 1.5. Patient was fluid resuscitated, and his lactic acid within normal limits. We're asked to see the patient for evaluation of diffuse infiltrates seen on chest x-ray and CT scan of the chest. On 08/10/2019 patient seen in follow-up on an elective care unit, he states his breathing is improving, still has right-sided chest wall soreness, difficult for him to reposition, he states overall she is feeling better, denies any chills, he is on accommodation of Zosyn and Levaquin, he has not is a sputum sample for culture, blood culture has shown no growth at the 24-hour felicia. Afebrile, hemodynamically stable, room air pulse ox is 92%. Echocardiogram results have been reviewed, showing mild concentric left ventricular hypertrophy, preserved systolic function with an EF of 55-60%, mild mitral and mild tricuspid regurg, no evidence of pulmonary hypertension. PA systolic is 35.5 mmHg. Today's labs have been reviewed, and patient is neutropenic, with a white blood cell count of 3.6, hemoglobin is 12.3, platelet count is 61, electrolytes are within normal limits, BUN is 14 creatinine is 0.52. Anion gap is at 5. CRP was elevated at 32. Patient is on insulin infusion currently at 6 units per hour. Maintenance IV fluids 0.9 normal saline at rate of 20 ML per hour. On 08/11/2019, patient was evaluated, remains on the fourth floor, patient is feeling much better. Breathing a lot easier. His results from his transbronchial biopsies are pending. And so far the cultures are negative.clinically however the patient is feeling much better, breathing a lot easier.WBC count today is 4.8 hemoglobin is 11.8. .the BAL is mostly showing significant polymorphonuclears, hence likely pointing to infection. Patient remains on antibiotics and bronchodilators as well as steroids, and obviously he seems to be responding fairly well to treatment. Even his follow-up chest x- rayyesterday showed slight improvement especially in the right sided infiltra patrica. Patient had a normal sed rate. Hence this speaks against underlying vasculitis. Or connective tissue disease process.HIV screening has been negative. Influenza screening has been negative.viral cultures from the BAL are pending. Cultures and biopsies from bronchoscopy are pending. Reevaluated today on 08/12/2019, patient is feeling better, minimal cough, no wheezing, no fever no chills no hemoptysis. Significant improvement over the last few days. However bronchoscopy labs are still pending.labs from today including CBC, basic metabolic profile, renal profile are all normal. Objective - Vital Signs Vital signs: Vital Signs Temp 97.9 F 08/12/19 05:33 Pulse 88 08/12/19 09:31 Resp 16 08/12/19 05:33 BP 125/82 08/12/19 05:33 Pulse Ox 95 08/12/19 05:33 Intake & Output 08/11/19 08/12/19 08/12/19 18:59 06:59 18:59 Intake Total 359.117 43.591 427.775 Balance 359.117 43.591 427.775 Intake: Intake, IV Titration 59.117 43.591 27.775 Amount Insulin Regular 100 unit 59.117 43.591 27.775 In Sodium Chloride 0.9% 100 ml @ Titrate IV .Q0M [facility] Rx#:[id number] Oral 300 400 Other: Voiding Method Toilet Toilet # Voids 1 2 - Exam Physical Exam: Revealed a 44-year-old white male, pleasant, in no distress. Head: Atraumatic, normocephalic. HEENT:[Neck is supple.] [No neck masses.] [No thyromegaly.] [No JVD.]left sided superficial facial ulceration is noted Chest: [minimal crackles at the bases no rhonchi, no wheezes. Symmetrical chest expansion..] Cardiac Exam: [Normal S1 and S2, no S3 gallop, no murmur.] Abdomen: [Soft, nontender, no megaly, no rebound, no guarding, normal bowel so unds.] Extremities: positive clubbing, no edema, no cyanosis.]2+ pulses bilaterally. Neurological Exam: alert and oriented 3.[No focal neurologic deficit.] psychiatric: Normal mood, affect and normal mental status examination. Musculoskeletal: Normal range of motion, no deformities. Lymphatics: No lymphadenopathy. Skin: Left sided facial abrasion or ulceration noted.secondary to fall and trauma. Healing well. - Labs CBC & Chem 7: 08/12/19 06:21 08/12/19 06:21 Labs: Abnormal Lab Results - Last 24 Hours (Table) 08/11/19 08/11/19 08/11/19 Range/Units 11:49 14:14 15:48 RBC (4.30-5.90) m/uL MCV (80.0-100.0) fL Plt Count (150-450) k/uL Lymphocytes # (1.0-4.8) k/uL Macrocytosis Creatinine (0.66-1.25) mg/dL Glucose (74-99) mg/dL POC Glucose (mg/dL) 312 H 346 H 336 H (75-99) mg/dL 08/11/19 08/11/19 08/11/19 Range/Units 17:45 19:55 21:47 RBC (4.30-5.90) m/uL MCV (80.0-100.0) fL Plt Count (150-450) k/uL Lymphocytes # (1.0-4.8) k/uL Macrocytosis Creatinine (0.66-1.25) mg/dL Glucose (74-99) mg/dL POC Glucose (mg/dL) 236 H 236 H 165 H (75-99) mg/dL 08/11/19 08/12/19 08/12/19 Range/Units 23:58 02:01 04:13 RBC (4.30-5.90) m/uL MCV (80.0-100.0) fL Plt Count (150-450) k/uL Lymphocytes # (1.0-4.8) k/uL Macrocytosis Creatinine (0.66-1.25) mg/dL Glucose (74-99) mg/dL POC Glucose (mg/dL) 169 H 263 H 316 H (75-99) mg/dL 08/12/19 08/12/19 08/12/19 Range/Units 06:07 06:21 06:21 RBC 3.80 L (4.30-5.90) m/uL MCV 108.0 H (80.0-100.0) fL Plt Count 51 L (150-450) k/uL Lymphocytes # 0.8 L (1.0-4.8) k/uL Macrocytosis Marked A Creatinine 0.61 L (0.66-1.25) mg/dL Glucose 321 H (74-99) mg/dL POC Glucose (mg/dL) 311 H (75-99) mg/dL 08/12/19 08/12/19 Range/Units 08:01 10:54 RBC (4.30-5.90) m/uL MCV (80.0-100.0) fL Plt Count (150-450) k/uL Lymphocytes # (1.0-4.8) k/uL Macrocytosis Creatinine (0.66-1.25) mg/dL Glucose (74-99) mg/dL POC Glucose (mg/dL) 251 H 271 H (75-99) mg/dL Microbiology - Last 24 Hours (Table) 08/10/19 12:20 Gram Stain - Final Bronchial Washings - Random Bronchial Washings Culture - Final 08/09/19 11:46 Blood Culture - Preliminary Blood No Growth after 48 hours 08/09/19 11:50 Blood Culture - Preliminary Blood No Growth after 48 hours 08/08/19 11:02 Blood Culture - Preliminary Blood No Growth after 72 hours Assessment and Plan Assessment: #1. Acute hypoxemic respiratory failure related to possibility of multifocal pneumonia, with possibility of aspiration, atypical infection, hypersensitivity pneumonitis #2. Hypoglycemic episodes and falls at home #3. Right lower chest wall pain likely related to recent falls #4. Mild lactic acidosis, rule out sepsis, improved with IV hydration #5. Diabetic ketoacidosis, resolved, and on today's labs anion gap has closed #6. Lifetime nonsmoker #7. History of EtOH abuse currently in remission for the past 2 years #8. History of liver cirrhosis #9. History of hepatitis C #9. 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 Marijuana user Recommendation: continue antibiotics. Continue bronchodilators. Continue steroids. Check on the results of the bronchoscopy, biopsies, and BAL in the morning. Repeat chest x-ray in a.m. Depending on the chest x-ray findings and based on the bronchoscopy reports findings, may or may not consider discharge planning. We'll continue to follow. Time with Patient: Less than 30
[2019-08-12] MEDS: LEVOFLOXACIN 750 MG TAB PO SCH (12:03)
[2019-08-12 12:28] LABS: Glucose,Whole Blood 287 mg/dL (75-99)
[2019-08-12 14:01] LABS: Glucose,Whole Blood 289 mg/dL (75-99)
--- NOTE | 2019-08-12 16:06 | P.PN ---
Subjective Progress Note Date: 08/12/19 Principal diagnosis: Acute hypoxemic respiratory failure Extensive Aspiration pneumonia versus hypersensitivity pneumonitis; rule out neoplastic process Status post bronchoscopy with BAL and multiple transbronchial biopsies of superior lingula using fluoroscopy 08/10/2019 patient seen and evaluated in room in follow-up on an elective care unit, patient is status post bronchoscopy with BAL and multiple transbronchial biopsies of the superior lingula; constipation and extensive bilateral pneumonia he states his breathing is improving, still has right-sided chest wall soreness, difficult for him to reposition, he states overall she is feeling better Patient remains on Zosyn and Levaquin, he has not is a sputum sample for culture, blood culture has shown no growth at the 24-hour felicia. Afebrile, hemodynamically stable, room air pulse ox is 92%. Echocardiogram results have been reviewed, showing mild concentric left ventricular hypertrophy, preserved systolic function with an EF of 55-60%, mild mitral and mild tricuspid regurg, no evidence of pulmonary hypertension. PA systolic is 35.5 mmHg. Lab review reveals patient is neutropenic, with a white blood cell count of 3.6, hemoglobin is 12.3, platelet count is 61, electrolytes are within normal limits, BUN is 14 creatinine is 0.52. Anion gap is at 5. CRP was elevated at 32. Patient is on insulin infusion currently at 6 units per hour. Maintenance IV fluids 0.9 normal saline at rate of 20 ML per hour. 08/11/2019 Patient is seen and evaluated in room at bedside; patient is feeling much better. Breathing a lot easier. results from his transbronchial biopsies are pending; cultures are negative so far; WBC count today is 4.8 hemoglobin is 11.8. Electrolytes are normal BAL is mostly showing significant polymorphonuclears, hence likely pointing to infection. Patient remains on antibiotics and bronchodilators as well as steroids, and obviously he seems to be responding fairly well to treatment; follow-up chest x-ray yesterday showed slight improvement especially in the right sided infiltrates. Patient had a normal sed rate, low possibility of underlying vasculitis/ connective tissue disease process; HIV screening has been negative. Influenza screening has been negative.viral cultures from the BAL are pending. Cultures and biopsies from bronchoscopy are pending. Patient remains on IV Zosyn; pulmonary and ID are following 08/12/2019 Patient is seen and evaluated on 4 S.; does report feeling better with minimal cough Vital signs remained stable with temperature of 98.1, pulse 81, blood blood pressure 140/68 Lab review shows WBC of 3.8; blood sugars remain elevated over 280s; patient remains on IV Solu-Medrol; has been on IV insulin infusion; we will discontinue IV insulin drip and start patient on daily dose of Levemir Bronchoscopy labs are still pending and patient remains on IV Zosyn per pulmonary recommendations; plan is to transition to oral antibiotics once bronchoscopy labs are available and reviewed Objective - Vital Signs Vital signs: Vital Signs Temp 97.9 F 08/12/19 05:33 Pulse 88 08/12/19 09:31 Resp 16 08/12/19 05:33 BP 125/82 08/12/19 05:33 Pulse Ox 95 08/12/19 05:33 Intake & Output 08/11/19 08/12/19 08/12/19 18:59 06:59 18:59 Intake Total 359.117 43.591 432.800 Balance 359.117 43.591 432.800 Intake: Intake, IV Titration 59.117 43.591 32.800 Amount Insulin Regular 100 unit 59.117 43.591 32.800 In Sodium Chloride 0.9% 100 ml @ Titrate IV .Q0M [facility] Rx#:[id number] Oral 300 400 Other: Voiding Method Toilet Toilet # Voids 1 2 - Exam GENERAL: The patient is alert and oriented x3, not in any acute distress. Well developed, well nourished. Appears to be fatigued severely HEENT: Pupils are round and equally reacting to light. EOMI. No scleral icterus. No conjunctival pallor. Normocephalic, . No pharyngeal erythema. No thyromegaly. Patient has a bruise and the skin breakdown on the left side of face CARDIOVASCULAR: S1 and S2 present. No murmurs, rubs, or gallops. PULMONARY: crackles bilaterally improved fairly good air entry into bilateral lung gore. ABDOMEN: Soft, nontender, nondistended, normoactive bowel sounds. No palpable organomegaly. MUSCULOSKELETAL: No joint swelling or deformity. EXTREMITIES: No cyanosis, clubbing, or pedal edema. NEUROLOGICAL: Gross neurological examination did not reveal any focal deficits. SKIN: No rashes. - Labs CBC & Chem 7: 08/12/19 06:21 08/12/19 06:21 Labs: Abnormal Lab Results - Last 24 Hours (Table) 08/11/19 08/11/19 08/11/19 Range/Units 14:14 15:48 17:45 RBC (4.30-5.90) m/uL MCV (80.0-100.0) fL Plt Count (150-450) k/uL Lymphocytes # (1.0-4.8) k/uL Macrocytosis Creatinine (0.66-1.25) mg/dL Glucose (74-99) mg/dL POC Glucose (mg/dL) 346 H 336 H 236 H (75-99) mg/dL 08/11/19 08/11/19 08/11/19 Range/Units 19:55 21:47 23:58 RBC (4.30-5.90) m/uL MCV (80.0-100.0) fL Plt Count (150-450) k/uL Lymphocytes # (1.0-4.8) k/uL Macrocytosis Creatinine (0.66-1.25) mg/dL Glucose (74-99) mg/dL POC Glucose (mg/dL) 236 H 165 H 169 H (75-99) mg/dL 08/12/19 08/12/19 08/12/19 Range/Units 02:01 04:13 06:07 RBC (4.30-5.90) m/uL MCV (80.0-100.0) fL Plt Count (150-450) k/uL Lymphocytes # (1.0-4.8) k/uL Macrocytosis Creatinine (0.66-1.25) mg/dL Glucose (74-99) mg/dL POC Glucose (mg/dL) 263 H 316 H 311 H (75-99) mg/dL 08/12/19 08/12/19 08/12/19 Range/Units 06:21 06:21 08:01 RBC 3.80 L (4.30-5.90) m/uL MCV 108.0 H (80.0-100.0) fL Plt Count 51 L (150-450) k/uL Lymphocytes # 0.8 L (1.0-4.8) k/uL Macrocytosis Marked A Creatinine 0.61 L (0.66-1.25) mg/dL Glucose 321 H (74-99) mg/dL POC Glucose (mg/dL) 251 H (75-99) mg/dL 08/12/19 Range/Units 10:54 RBC (4.30-5.90) m/uL MCV (80.0-100.0) fL Plt Count (150-450) k/uL Lymphocytes # (1.0-4.8) k/uL Macrocytosis Creatinine (0.66-1.25) mg/dL Glucose (74-99) mg/dL POC Glucose (mg/dL) 271 H (75-99) mg/dL Microbiology - Last 24 Hours (Table) 08/10/19 12:20 Gram Stain - Final Bronchial Washings - Random Bronchial Washings Culture - Final 08/09/19 11:46 Blood Culture - Preliminary Blood No Growth after 48 hours 08/09/19 11:50 Blood Culture - Preliminary Blood No Growth after 48 hours 08/08/19 11:02 Blood Culture - Preliminary Blood No Growth after 72 hours Assessment and Plan Assessment: -Chest pain pleuritic most probably related to pneumonia and acute lung injury chest x-ray shows diffuse infiltrate patient was started on levofloxacin influenza testing is negative patient is presently septic probably because of atypical pneumonia (a CAT scan to better characterize and also to rule out pulmonary embolism. Patient sepsis appears to be severe as his admission serum lactate was very high -Diabetic ketoacidosis ketoacidosis anion gap resolved and patient will be resumed on IV fluids once we get the CAT scan patient is still bit hyponatremic which appears to be hypovolemic hyponatremia patient will be started on inhalational treatments. Patient's insulin regimen as mentioned above -History of for cirrhosis although patient doesn't have any ascites at this time. Patient did have history of hepatitis C and used to be an alcoholic in the past Diabetes mellitus, unsure whether this type in a type II definitely has insulin deficiency is in DKA at this time. DVT prophylaxis with subcutaneous heparin and GI prophylaxis with Pepcid Time with Patient: Greater than 30
[2019-08-12 16:34] LABS: Glucose,Whole Blood 251 mg/dL (75-99)
[2019-08-12 17:18] LABS: Glucose,Whole Blood 246 mg/dL (75-99)
[2019-08-12] MEDS ORDERED: INSULIN ASPART (NovoLOG) 100 UNIT/ML VIAL SQ SCH (17:30)
[2019-08-12] MEDS ORDERED: INSULIN DETEMIR (LEVEMIR) 100 UNIT/ML SYR SQ SCH (21:00)
[2019-08-12 22:23] LABS: Glucose,Whole Blood 259 mg/dL (75-99)
[2019-08-13] MEDS: PIPERACILLIN-TAZOBACTAM 3.375 GM in SODIUM CHLORIDE 0.9% 100 ML IVPB SCH ×3 (00:53→15:27)
[2019-08-13] MEDS: HEPARIN SODIUM,PORCINE 5,000 UNIT/ML 1 ML VIAL SQ SCH ×3 (00:53→15:27)
--- NOTE | 2019-08-13 05:57 | PN ---
PROGRESS NOTE DATE OF SERVICE: 08/12/2019 REASON FOR FOLLOWUP: Pneumonia. INTERVAL HISTORY: The patient is currently afebrile. The patient has been breathing comfortably. The patient's cough has improved. Denies having any chest pain or shortness of breath. No nausea, no vomiting. No abdominal pain. No diarrhea. PHYSICAL EXAMINATION: Blood pressure is 114/66, pulse of 89, temperature 98.1. He is 92% on room air. General description is a middle-aged male, lying in bed in no distress. RESPIRATORY SYSTEM: Unlabored breathing, decreased breath sounds at the bases. No wheeze. HEART: S1, S2. Regular rate and rhythm. ABDOMEN: Soft, no tenderness. EXTREMITIES: No edema of the feet. LABS: No new labs been obtained today. A bronch culture has been usual respiratory kerrie. DIAGNOSTIC IMPRESSION AND PLAN: Patient admitted to the hospital with frequent falls in this patient who did have evidence of bilateral pneumonia. The patient is status post bronchoscopy. The culture negative so far for a resistant pathogen. The patient is currently covered with Zosyn, that can be transitioned to oral Augmentin on discharge to finish course of therapy. Continue with supportive care. MMODL / IJN: [id number] /
[2019-08-13] MEDS: IPRATROPIUM-ALBUTEROL 3 ML NEB INHALATION SCH ×4 (07:10→19:26)
[2019-08-13 07:39] LABS: Glucose,Whole Blood 102 mg/dL (75-99)
[2019-08-13 07:57] LABS: Basophils % (A) 0 %; Eosinophils % (A) 0 %; HCT 47.2 % (39.0-53.0); HGB 14.8 gm/dL (13.0-17.5); Lymphocytes # (A) 0.6 k/uL (1.0-4.8); Lymphocytes % (A) 16 %; MCH 33.4 pg (25.0-35.0); MCHC 31.3 g/dL (31.0-37.0); MCV 106.8 fL (80.0-100.0); Macrocytosis Moderate; Mean Platelet Volume 7.1; Monocytes # (A) 0.2 k/uL (0-1.0); Monocytes % (A) 5 %; Neutrophils # (A) 3.1 k/uL (1.3-7.7); Neutrophils % (A) 78 %; RBC 4.42 m/uL (4.30-5.90); RDW 15.1 % (11.5-15.5)
[2019-08-13 08:03] LABS: Platelet Count 62 k/uL (150-450)
[2019-08-13 08:05] LABS: ALT 62 U/L (21-72); AST 101 U/L (17-59); African American GFR (CKD) >90 (>60 ml/min/1.73 sqM); Albumin 2.9 g/dL (3.5-5.0); Alkaline Phosphatase 322 U/L (38-126); Anion Gap 5 mmol/L; Bilirubin, Delta 0.6 mg/dL (0.0-0.2); Bilirubin,Unconjugated 0.7 mg/dL (0.0-1.1); Blood Urea Nitrogen 15 mg/dL (9-20); Calcium 9.3 mg/dL (8.4-10.2); Carbon Dioxide 33 mmol/L (22-30); Chloride 104 mmol/L (98-107); Glucose 116 mg/dL (74-99); Non-African American GFR(CKD) >90 (>60 ml/min/1.73 sqM); Potassium 4.6 mmol/L (3.5-5.1); Sodium 142 mmol/L (137-145); Total Bilirubin 1.3 mg/dL (0.2-1.3); Total Protein 6.1 g/dL (6.3-8.2)
--- NOTE | 2019-08-13 08:44 | XR ---
EXAMINATION TYPE: XR chest 2V DATE OF EXAM: 08/13/2019 COMPARISON: Prior chest x-ray 07/31/2019 HISTORY: Pneumonia TECHNIQUE: Frontal and lateral views of the chest are obtained. FINDINGS: There is some improvement in aeration. No pneumothorax or pleural effusion. Cardiac medias tinal silhouette, pulmonary vascularity and senthil not significantly changed. IMPRESSION: Improved aeration
[2019-08-13] MEDS: INSULIN ASPART (NovoLOG) 100 UNIT/ML VIAL SQ SCH ×4 (08:59→22:03)
[2019-08-13] MEDS: methylPREDNISolone SOD SUCCI 40 MG/ML 1 ML VIAL IV SCH (09:11)
[2019-08-13] MEDS: FAMOTIDINE 20 MG TAB PO SCH ×2 (09:11→22:03)
--- NOTE | 2019-08-13 11:35 | P.PN ---
Subjective Progress Note Date: 08/13/19 Principal diagnosis: Acute hypoxemic respiratory failure with the possibility of aspiration pneumonia, hypersensitivity pneumonitis, rule out neoplastic process This is a 44-year-old white male patient who currently does not have a primary care provider, but used to see Julien Perez PA-C, who came into the emergency department yesterday on 08/08/2019 with complaints of passing out, hypoglycemic episodes, right chest wall pain, cough, increased difficulty breathing. Patient is a type II diabetic and he takes NovoLog 70/30 20 units in the morning and 30 units at bedtime, and his hypoglycemic episodes started last week when she was repeatedly falling related to low blood sugars, and he admits to passing out. Sustained abrasion on his left cheek, and he has mild bruising on his right posterior chest, and pain and tenderness in the right anterior lower chest along the rib margin. Denied any fever, but admits to having chills. Has been having some night sweats, his cough is raspy but nonproductive. Denies history of smoking, does occasionally smoke marijuana, admits to trying vaping one time in the past. 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 He stated he bought a house for $500 that needs a lot of repairs, and apparently has mold in it that patient cleaned up himself with bleach. Other medical history includes cirrhosis of the liver, EtOH abuse, currently in remission, hep C, and family history of diabetes. Brain CT showed no acute abnormality, chest x-ray of the ribs showed diffuse bilateral infiltrates, no pneumothorax, poss ibility of atypical pneumonia and neoplastic process could not be excluded. This was followed with the chest CTA, revealing no definite evidence of pulmonary embolism, extensive patchy and confluent airspace disease left greater than right, with increased consolidation in the left lower lobe and left upper lobe. Patient was started on empiric antibiotics in the form of Levaquin, initially he was afebrile, today he is having a low-grade fever. Hemodynamically stable, he required supplemental oxygen initiation today with pulse ox of 80% on room air. Not coughing up any sputum. Lab work was negative for any leukocytosis, white blood cell count was 5.4, hemoglobin is 13.6, coagulation profile was within normal limits, sodium is 131, potassium is 4.1, the rest of the electrolytes were within normal limits, CO2 is 25, anion gap was 5, BUN is 9, creatinine 0.47, influenza screen was negative, plasma lactic acid was mildly elevated at 3.1, and serum phosphorus was 1.5. Patient was fluid resuscitated, and his lactic acid within normal limits. We're asked to see the patient for evaluation of diffuse infiltrates seen on chest x-ray and CT scan of the chest. On 08/10/2019 patient seen in follow-up on an elective care unit, he states his breathing is improving, still has right-sided chest wall soreness, difficult for him to reposition, he states overall she is feeling better, denies any chills, he is on accommodation of Zosyn and Levaquin, he has not is a sputum sample for culture, blood culture has shown no growth at the 24-hour felicia. Afebrile, hemodynamically stable, room air pulse ox is 92%. Echocardiogram results have been reviewed, showing mild concentric left ventricular hypertrophy, preserved systolic function with an EF of 55-60%, mild mitral and mild tricuspid regurg, no evidence of pulmonary hypertension. PA systolic is 35.5 mmHg. Today's labs have been reviewed, and patient is neutropenic, with a white blood cell count of 3.6, hemoglobin is 12.3, platelet count is 61, electrolytes are within normal limits, BUN is 14 creatinine is 0.52. Anion gap is at 5. CRP was elevated at 32. Patient is on insulin infusion currently at 6 units per hour. Maintenance IV fluids 0.9 normal saline at rate of 20 ML per hour. On 08/13/2019 patient seen in follow-up on medical surgical floor. He is awake and alert, in no acute distress, no fever or chills, no complaints of chest pain, no hemoptysis, he status post bronchoscopy with BAL and transbronchial biopsy, and the results are still pending at this time. Today's follow-up chest x-ray shows continued improvement in aeration bilaterally, patient continues on Levaquin and Zosyn, and IV Solu-Medrol at 40 mg every 12 hours. He states his breathing easier, no specific complaints. His labs have been reviewed, showing white blood cell count is 4.0, hemoglobin is 14.8, electrolytes are within normal limits except for CO2 which is at 33, BUN 17 and creatinine 0.58. Pro- calcitonin level did come back positive at 1.16, suggesting infection, sed rate was within normal limits, HIV screening was negative, influenza screen was negative, viral cultures negative brown lavage cultures are negative Objective - Vital Signs Vital signs: Vital Signs Temp 97.5 F L 08/13/19 07:00 Pulse 88 08/13/19 11:24 Resp 16 08/13/19 07:00 BP 122/83 08/13/19 07:00 Pulse Ox 91 L 08/13/19 07:00 Intake & Output 08/12/19 08/13/19 08/13/19 18:59 06:59 18:59 Intake Total 1157.550 100 Balance 1157.550 100 Intake: IV 100 Piperacillin-Tazobactam 3 100 .375 gm In Sodium Chloride 0.9% 100 ml @ 25 mls/hr IVPB Q8HR JORDAN Rx# :[id number] Intake, IV Titration 57.550 Amount Insulin Regular 100 unit 57.550 In Sodium Chloride 0.9% 100 ml @ Titrate IV .Q0M JORDAN Rx#:[id number] Oral 1100 Other: Voiding Method Toilet # Voids 1 1 - Exam GENERAL EXAM: Alert, pleasant, 44-year-old white male, slightly pale, but no acute distress comfortable in no apparent distress. Patient does experience right lower chest discomfort with repositioning. Clubbing noted involving digits of his bilateral hands HEAD: Normocephalic/atraumatic. EYES: Normal reaction of pupils, equal size. Conjunctiva pink, sclera white. NOSE: Clear with pink turbinates. THROAT: No erythema or exudates. NECK: No masses, no JVD, no thyroid enlargement, no adenopathy. CHEST: No chest wall deformity. Symmetrical expansion. LUNGS: Equal air entry with fine needle crackles over bilateral bases, left mid lung posteriorly CVS: Regular rate and rhythm, normal S1 and S2, no gallops, no murmurs, no rubs ABDOMEN: Soft, nontender. No hepatosplenomegaly, normal bowel sounds, no guarding or rigidity. EXTREMITIES: No clubbing, no edema, no cyanosis, 2+ pulses and upper and lower extremities. MUSCULOSKELETAL: Muscle strength and tone normal. SPINE: No scoliosis or deformity SKIN: No rashes, mild bruising on the posterior right chest CENTRAL NERVOUS SYSTEM: Alert and oriented -3. No focal deficits, tone is normal in all 4 extremities. PSYCHIATRIC: Alert and oriented -3. Appropriate affect. Intact judgment and insight. - Labs CBC & Chem 7: 08/13/19 07:21 08/13/19 07:21 Labs: Abnormal Lab Results - Last 24 Hours (Table) 08/12/19 08/12/19 08/12/19 Range/Units 12:07 13:50 16:04 MCV (80.0-100.0) fL Plt Count (150-450) k/uL Lymphocytes # (1.0-4.8) k/uL Carbon Dioxide (22-30) mmol/L Creatinine (0.66-1.25) mg/dL Glucose (74-99) mg/dL POC Glucose (mg/dL) 287 H 289 H 251 H (75-99) mg/dL Delta Bilirubin (0.0-0.2) mg/dL AST (17-59) U/L Alkaline Phosphatase (38-126) U/L Total Protein (6.3-8.2) g/dL Albumin (3.5-5.0) g/dL 08/12/19 08/12/19 08/13/19 Range/Units 16:57 22:02 07:21 MCV 106.8 H (80.0-100.0) fL Plt Count 62 L (150-450) k/uL Lymphocytes # 0.6 L (1.0-4.8) k/uL Carbon Dioxide (22-30) mmol/L Creatinine (0.66-1.25) mg/dL Glucose (74-99) mg/dL POC Glucose (mg/dL) 246 H 259 H (75-99) mg/dL Delta Bilirubin (0.0-0.2) mg/dL AST (17-59) U/L Alkaline Phosphatase (38-126) U/L Total Protein (6.3-8.2) g/dL Albumin (3.5-5.0) g/dL 08/13/19 08/13/19 Range/Units 07:21 07:24 MCV (80.0-100.0) fL Plt Count (150-450) k/uL Lymphocytes # (1.0-4.8) k/uL Carbon Dioxide 33 H (22-30) mmol/L Creatinine 0.58 L (0.66-1.25) mg/dL Glucose 116 H (74-99) mg/dL POC Glucose (mg/dL) 102 H (75-99) mg/dL Delta Bilirubin 0.6 H (0.0-0.2) mg/dL AST 101 H (17-59) U/L Alkaline Phosphatase 322 H (38-126) U/L Total Protein 6.1 L (6.3-8.2) g/dL Albumin 2.9 L (3.5-5.0) g/dL Microbiology - Last 24 Hours (Table) 08/09/19 11:50 Blood Culture - Preliminary Blood No Growth after 72 hours 08/09/19 11:46 Blood Culture - Preliminary Blood No Growth after 72 hours 08/08/19 11:02 Blood Culture - Preliminary Blood No Growth after 96 hours 08/10/19 12:20 Gram Stain - Final Bronchial Washings - Random Bronchial Washings Culture - Final Assessment and Plan Plan: Assessment: #1. Acute hypoxemic respiratory failure related to possibility of multifocal pneumonia, with possibility of aspiration, atypical infection, hypersensitivity pneumonitis versus neoplastic process, chest x-ray and CTA chest both showed diffuse patchy and confluent infiltrates involving both lungs, status post bronchoscopy with BAL and transbronchial biopsies. #2. Hypoglycemic episodes and falls at home #3. Right lower chest wall pain likely related to recent falls #4. Mild lactic acidosis, rule out sepsis, improved with IV hydration #5. Diabetic ketoacidosis, resolved, and on today's labs anion gap has closed #6. Lifetime nonsmoker #7. History of EtOH abuse currently in remission for the past 2 years #8. History of liver cirrhosis #9. History of hepatitis C #9. 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 Marijuana user Plan: Patient remains stable, no specific complaints, today's follow-up chest x-ray shows continued improvement in the appearance of bilateral infiltrates. No fever or chills, bronchial lavage cultures are pending, and have shown no growth so far, viral cultures are negative, acid-fast smear is negative, patient is improving on antibiotics and IV steroids, his sed rate came back negative which speaks against possibility of connective tissue disorders or vasculitis. From pulmonary perspective can be discharged home with follow-up with Dr. Goetz in the office in one or 2 weeks I performed a history & physical examination of the patient and discussed their management with my nurse practitioner, Brenda Jose. I reviewed the nurse practitioner's note and agree with the documented findings and plan of care. Lung sounds are positive for fine crackles over left lower and left mid lung posteriorly fine crackles over right base. The findings and the impression was discussed with the patient. I attest to the documentation by the nurse practitioner. Time with Patient: Less than 30
[2019-08-13 11:56] LABS: Glucose,Whole Blood 323 mg/dL (75-99)
[2019-08-13] MEDS: LEVOFLOXACIN 750 MG TAB PO SCH (12:35)
[2019-08-13] MEDS ORDERED: INSULIN DETEMIR (LEVEMIR) 100 UNIT/ML SYR SQ ONE (13:15)
[2019-08-13 14:35] LABS: C-ANCA <1:20 Titer (<1:20)
--- NOTE | 2019-08-13 15:58 | PN ---
PROGRESS NOTE DATE OF SERVICE: 08/13/2019 REASON FOR FOLLOWUP: Pneumonia. INTERVAL HISTORY: The patient is currently afebrile. The patient is breathing comfortably. The patient denies having any chest pain or cough. No nausea. No vomiting. No abdominal pain or diarrhea. PHYSICAL EXAMINATION: Blood pressure 122/83 with a pulse of 68, temperature 97.5. He is 91% on room air. General description is a middle-aged male lying in bed in no distress. RESPIRATORY SYSTEM: Unlabored breathing. Clear to auscultation anteriorly. HEART: S1, S2. Regular rate and rhythm. ABDOMEN: Soft. No tenderness. LABS: Hemoglobin is 14.8, white count 4.0, BUN of 15, creatinine 0.58. Bronch culture has been negative so far. DIAGNOSTIC IMPRESSION AND PLAN: Patient admitted to hospital with a syncopal episode, possible aspiration pneumonitis. The patient at this time is covered with Zosyn and Levaquin. Sputum has been negative for any resistant pathogen. Plan is to finish therapy with oral Augmentin for about a week. Continue with supportive care. MMODL / IJN: [id number] /
[2019-08-13 17:07] LABS: Glucose,Whole Blood 460 mg/dL (75-99)
[2019-08-13] MEDS ORDERED: INSULIN ASPART (NovoLOG) 100 UNIT/ML VIAL SQ ONE (17:20)
--- NOTE | 2019-08-13 18:47 | P.PN ---
Subjective Patient is a pleasant 44-year-old gentleman and is being admitted for DKA and bilateral pneumonia. Patient had a fall because of low blood pressure and not feeling well and fatigued. The patient previously was on Novolin 70-30 at 20 units every morning and 30 units every at bedtime and he used to follow-up with Dr. Craft however he stopped seeing Dr. vu and his PCP because he lost his insurance. Patient presents to emergency room because of passing out, hypoglycemic episodes, right chest wall pain, cough, increased difficulty breathing. Patient was found to have bilateral pna. chest x-ray of the ribs showed diffuse bilateral infiltrates, no pneumothorax, possibility of atypical pneumonia and neoplastic process could not be excluded. This was followed with the chest CTA, revealing no definite evidence of pulmonary embolism, extensive patchy and confluent airspace disease left greater than right, with increased consolidation in the left lower lobe and left upper lobe. Chest x-ray from 08/13/2019 showed improved orientation. on 08/20 patient underwent bronchoscopy with bronchoalveolar lavage, and cytology and biopsy are still pending Patient has been treated with antibiotics with Levaquin and Zosyn, he showed interval improvement and on the day of discharge he denies chest pain or dyspnea, he has little cough with no phlegm. He is walking with no difficulty and get up and go test is normal. He is tolerating diet well with regular bowel movement, no urinary complaints. No fever. Sugar is controlled with 102-251. also his insulin regimen has been switched to Levemir insulin 25 units at bedtime, however he needs 88 units of short-acting insulin yesterday, so we'll increase his Levemir to 28 units upon discharge pt was cleared by pulmonary for discharge today , although he has still pending test from his bronchoscopy like cytology, pt sugar is not controlled and it was more than 300-400 , we stopped his steroids and increased his levemir to 30 from 25 Objective - Vital Signs Vital signs: Vital Signs Temp 97.7 F 08/13/19 14:31 Pulse 84 08/13/19 15:55 Resp 16 08/13/19 14:31 BP 108/68 08/13/19 14:31 Pulse Ox 92 L 08/13/19 14:31 Intake & Output 08/12/19 08/13/19 08/13/19 18:59 06:59 18:59 Intake Total 1157.550 100 Balance 1157.550 100 Intake: IV 100 Piperacillin-Tazobactam 3 100 .375 gm In Sodium Chloride 0.9% 100 ml @ 25 mls/hr IVPB Q8HR [facility] Rx# :[id number] Intake, IV Titration 57.550 Amount Insulin Regular 100 unit 57.550 In Sodium Chloride 0.9% 100 ml @ Titrate IV .Q0M JORD[facility] Rx#:[id number] Oral 1100 Other: Voiding Method Toilet # Voids 1 1 3 - Exam GENERAL: The patient is alert and oriented x3, not in any acute distress. Well developed, well nourished. HEENT: Pupils are round and equally reacting to light. EOMI. No scleral icterus. No conjunctival pallor. Normocephalic, atraumatic. No pharyngeal erythema. No thyromegaly. CARDIOVASCULAR: S1 and S2 present. No murmurs, rubs, or gallops. PULMONARY: Chest is clear to auscultation, no wheezing or crackles. ABDOMEN: Soft, nontender, nondistended, normoactive bowel sounds. No palpable o rganomegaly. MUSCULOSKELETAL: No joint swelling or deformity. EXTREMITIES: No cyanosis, clubbing, or pedal edema. NEUROLOGICAL: Gross neurological examination did not reveal any focal deficits. SKIN: No rashes. - Labs CBC & Chem 7: 08/13/19 07:21 08/13/19 07:21 Labs: Abnormal Lab Results - Last 24 Hours (Table) 08/12/19 08/13/19 08/13/19 Range/Units 22:02 07:21 07:21 MCV 106.8 H (80.0-100.0) fL Plt Count 62 L (150-450) k/uL Lymphocytes # 0.6 L (1.0-4.8) k/uL Carbon Dioxide 33 H (22-30) mmol/L Creatinine 0.58 L (0.66-1.25) mg/dL Glucose 116 H (74-99) mg/dL POC Glucose (mg/dL) 259 H (75-99) mg/dL Delta Bilirubin 0.6 H (0.0-0.2) mg/dL AST 101 H (17-59) U/L Alkaline Phosphatase 322 H (38-126) U/L Total Protein 6.1 L (6.3-8.2) g/dL Albumin 2.9 L (3.5-5.0) g/dL 08/13/19 08/13/19 08/13/19 Range/Units 07:24 11:54 17:04 MCV (80.0-100.0) fL Plt Count (150-450) k/uL Lymphocytes # (1.0-4.8) k/uL Carbon Dioxide (22-30) mmol/L Creatinine (0.66-1.25) mg/dL Glucose (74-99) mg/dL POC Glucose (mg/dL) 102 H 323 H 460 H (75-99) mg/dL Delta Bilirubin (0.0-0.2) mg/dL AST (17-59) U/L Alkaline Phosphatase (38-126) U/L Total Protein (6.3-8.2) g/dL Albumin (3.5-5.0) g/dL Microbiology - Last 24 Hours (Table) 08/10/19 12:20 Fungal Culture - Preliminary Bronchial Washings - Random Mi albicans 08/09/19 11:46 Blood Culture - Preliminary Blood No Growth after 96 hours 08/09/19 11:50 Blood Culture - Preliminary Blood No Growth after 96 hours 08/08/19 11:02 Blood Culture - Preliminary Blood No Growth after 120 hours Assessment and Plan Assessment: Extensive Bilateral pneumonia Diabetic ketoacidosis on admission, resolved Diabetes mellitus with hyperglycemia Liver cirrhosis secondary to hepatitis C is and history of alcohol abuse. P atient is aware of his problem and he was to follow up with daiana Pacheco before Chronic Thrombocytopenia Multiple falls secondary to abnormal sugar level, hypotension and fatigue needs Plan: this is a pleasant 44 yo M who present with b/l pna and DKA , although he was compliant with his therapy as per pt at home. c/s antibiotic, follow up recommendation by pulmonary service. pt sugar is uncontrolled, increased levemir to 30 u hs, and with ISS. stop steroids pt is counseled extensively more than once about the improtance of follow up and adherence therapy and R/B/A are explained including but not limited to the risk of cancer , and he verbalized understanding and acceptance. Labs and medication were reviewed.. Continue same treatment. Continue with symptomatic treatment. Resume home medication. Monitor lytes and vitals. DVT and GI prophylaxis. Further recommendations of the clinical course of the patient DVT prophylaxis: Subcutaneous heparin GI Prophylaxis: Pepcid PT/OT: no need as pt is moving freely with no assistance , get up and go test is normal Prognosis is guarded
[2019-08-13] MEDS ORDERED: INSULIN DETEMIR (LEVEMIR) 100 UNIT/ML SYR SQ SCH ×2 (21:00)
[2019-08-13 21:29] LABS: Glucose,Whole Blood 357 mg/dL (75-99)
[2019-08-13] MEDS: SODIUM CHLORIDE 0.9% 1,000 ML IV SCH ×3 (22:04→23:12)
[2019-08-14] MEDS: PIPERACILLIN-TAZOBACTAM 3.375 GM in SODIUM CHLORIDE 0.9% 100 ML IVPB SCH ×2 (00:15→07:51)
[2019-08-14] MEDS: HEPARIN SODIUM,PORCINE 5,000 UNIT/ML 1 ML VIAL SQ SCH ×4 (00:16→23:10)
[2019-08-14] MEDS: SODIUM CHLORIDE 0.9% 1,000 ML IV SCH ×6 (04:28→19:05)
[2019-08-14 07:04] LABS: Glucose,Whole Blood 131 mg/dL (75-99)
[2019-08-14] MEDS: FAMOTIDINE 20 MG TAB PO SCH ×2 (07:51→20:37)
[2019-08-14] MEDS: LEVOFLOXACIN 750 MG TAB PO SCH (07:51)
[2019-08-14] MEDS: INSULIN ASPART (NovoLOG) 100 UNIT/ML VIAL SQ SCH ×4 (07:53→20:39)
[2019-08-14] MEDS: IPRATROPIUM-ALBUTEROL 3 ML NEB INHALATION SCH ×4 (08:11→20:12)
[2019-08-14 11:27] LABS: Glucose,Whole Blood 93 mg/dL (75-99)
--- NOTE | 2019-08-14 11:46 | P.PN ---
Subjective Progress Note Date: 08/14/19 Principal diagnosis: Acute hypoxemic respiratory failure with the possibility of aspiration pneumonia, hypersensitivity pneumonitis, ruled out neoplastic process This is a 44-year-old white male patient who currently does not have a primary care provider, but used to see Julien Perez PA-C, who came into the emergency department yesterday on 08/08/2019 with complaints of passing out, hypoglycemic episodes, right chest wall pain, cough, increased difficulty breathing. Patient is a type II diabetic and he takes NovoLog 70/30 20 units in the morning and 30 units at bedtime, and his hypoglycemic episodes started last week when she was repeatedly falling related to low blood sugars, and he admits to passing out. Sustained abrasion on his left cheek, and he has mild bruising on his right posterior chest, and pain and tenderness in the right anterior lower chest along the rib margin. Denied any fever, but admits to having chills. Has been having some night sweats, his cough is raspy but nonproductive. Denies history of smoking, does occasionally smoke marijuana, admits to trying vaping one time in the past. 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 He stated he bought a house for $500 that needs a lot of repairs, and apparently has mold in it that patient cleaned up himself with bleach. Other medical history includes cirrhosis of the liver, EtOH abuse, currently in remission, hep C, and family history of diabetes. Brain CT showed no acute abnormality, chest x-ray of the ribs showed diffuse bilateral infiltrates, no pneumothorax, po ssibility of atypical pneumonia and neoplastic process could not be excluded. This was followed with the chest CTA, revealing no definite evidence of pulmonary embolism, extensive patchy and confluent airspace disease left greater than right, with increased consolidation in the left lower lobe and left upper lobe. Patient was started on empiric antibiotics in the form of Levaquin, initially he was afebrile, today he is having a low-grade fever. Hemodynamically stable, he required supplemental oxygen initiation today with pulse ox of 80% on room air. Not coughing up any sputum. Lab work was negative for any leukocytosis, white blood cell count was 5.4, hemoglobin is 13.6, coagulation profile was within normal limits, sodium is 131, potassium is 4.1, the rest of the electrolytes were within normal limits, CO2 is 25, anion gap was 5, BUN is 9, creatinine 0.47, influenza screen was negative, plasma lactic acid was mildly elevated at 3.1, and serum phosphorus was 1.5. Patient was fluid resuscitated, and his lactic acid within normal limits. We're asked to see the patient for evaluation of diffuse infiltrates seen on chest x-ray and CT scan of the chest. On 08/10/2019 patient seen in follow-up on an elective care unit, he states his breathing is improving, still has right-sided chest wall soreness, difficult for him to reposition, he states overall she is feeling better, denies any chills, he is on accommodation of Zosyn and Levaquin, he has not is a sputum sample for culture, blood culture has shown no growth at the 24-hour felicia. Afebrile, hemodynamically stable, room air pulse ox is 92%. Echocardiogram results have been reviewed, showing mild concentric left ventricular hypertrophy, preserved systolic function with an EF of 55-60%, mild mitral and mild tricuspid regurg, no evidence of pulmonary hypertension. PA systolic is 35.5 mmHg. Today's labs have been reviewed, and patient is neutropenic, with a white blood cell count of 3.6, hemoglobin is 12.3, platelet count is 61, electrolytes are within normal limits, BUN is 14 creatinine is 0.52. Anion gap is at 5. CRP was elevated at 32. Patient is on insulin infusion currently at 6 units per hour. Maintenance IV fluids 0.9 normal saline at rate of 20 ML per hour. On 08/13/2019 patient seen in follow-up on medical surgical floor. He is awake and alert, in no acute distress, no fever or chills, no complaints of chest pain, no hemoptysis, he status post bronchoscopy with BAL and transbronchial biopsy, and the results are still pending at this time. Today's follow-up chest x-ray shows continued improvement in aeration bilaterally, patient continues on Levaquin and Zosyn, and IV Solu-Medrol at 40 mg every 12 hours. He states his breathing easier, no specific complaints. His labs have been reviewed, showing white blood cell count is 4.0, hemoglobin is 14.8, electrolytes are within normal limits except for CO2 which is at 33, BUN 17 and creatinine 0.58. Pro- calcitonin level did come back positive at 1.16, suggesting infection, sed rate was within normal limits, HIV screening was negative, influenza screen was negative, viral cultures negative brown lavage cultures are negative The patient is seen today 08/14/2019 in follow-up on the regular medical floor. He is awake and alert in no acute distress. Resting comfortably in bed. No worsening shortness of breath, cough or congestion. He is maintaining O2 saturations in the low 90s on room air. He's afebrile. Hemodynamically stable. Transbronchial biopsy results were negative for malignancy. Cultures revealed Mi only. He is continued on DuoNeb inhalations, antibiotics in the form of Levaquin. Objective - Vital Signs Vital signs: Vital Signs Temp 98.2 F 08/14/19 05:39 Pulse 82 08/14/19 05:39 Resp 16 08/14/19 08:00 BP 109/64 08/14/19 05:39 Pulse Ox 91 L 08/14/19 05:39 Intake & Output 08/13/19 08/14/19 08/14/19 18:59 06:59 18:59 Other: # Voids 3 2 - Exam GENERAL EXAM: Alert, pleasant, 44-year-old male patient, no acute distress comfortable in no apparent distress. Clubbing noted involving digits of his bilateral hands HEAD: Normocephalic/atraumatic. EYES: Normal reaction of pupils, equal size. Conjunctiva pink, sclera white. NOSE: Clear with pink turbinates. THROAT: No erythema or exudates. NECK: No masses, no JVD, no thyroid enlargement, no adenopathy. CHEST: No chest wall deformity. Symmetrical expansion. LUNGS: Equal air entry with fine crackles over bilateral bases, left mid lung posteriorly CVS: Regular rate and rhythm, normal S1 and S2, no gallops, no murmurs, no rubs ABDOMEN: Soft, nontender. No hepatosplenomegaly, normal bowel sounds, no guarding or rigidity. EXTREMITIES: No clubbing, no edema, no cyanosis, 2+ pulses and upper and lower extremities. MUSCULOSKELETAL: Muscle strength and tone normal. SPINE: No scoliosis or deformity SKIN: No rashes, mild bruising on the posterior right chest CENTRAL NERVOUS SYSTEM: No focal deficits, tone is normal in all 4 extremities. PSYCHIATRIC: Alert and oriented -3. Appropriate affect. Intact judgment and insight. - Labs CBC & Chem 7: 08/13/19 07:21 08/13/19 07:21 Labs: Abnormal Lab Results - Last 24 Hours (Table) 08/13/19 08/13/19 08/13/19 Range/Units 11:54 17:04 21:28 POC Glucose (mg/dL) 323 H 460 H 357 H (75-99) mg/dL 08/14/19 Range/Units 07:02 POC Glucose (mg/dL) 131 H (75-99) mg/dL Microbiology - Last 24 Hours (Table) 08/10/19 12:20 Fungal Culture - Preliminary Bronchial Washings - Random Mi albicans 08/09/19 11:46 Blood Culture - Preliminary Blood No Growth after 96 hours 08/09/19 11:50 Blood Culture - Preliminary Blood No Growth after 96 hours 08/08/19 11:02 Blood Culture - Preliminary Blood No Growth after 120 hours Assessment and Plan Assessment: #1. Acute hypoxemic respiratory failure related to possibility of multifocal pneumonia, with possibility of aspiration, atypical infection, hypersensitivity pneumonitis versus neoplastic process, chest x-ray and CTA chest both showed diffuse patchy and confluent infiltrates involving both lungs, status post bronchoscopy with BAL and transbronchial biopsies. #2. Hypoglycemic episodes and falls at home #3. Right lower chest wall pain likely related to recent falls #4. Mild lactic acidosis, rule out sepsis, improved with IV hydration #5. Diabetic ketoacidosis, resolved, and on today's labs anion gap has closed #6. Lifetime nonsmoker #7. History of EtOH abuse currently in remission for the past 2 years #8. History of liver cirrhosis #9. History of hepatitis C #9. 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 Marijuana user Plan: The patient was seen and evaluated by Dr. Miller. He is cleared for discharge from the pulmonary standpoint. Cultures negative. Pathology negative. He'll follow up with Dr. Goetz in our office in 1-2 weeks' time. He is encouraged to call sooner with any recurrence of symptoms or any other questions or concerns. I, the cosigning physician, performed a history & physical examination of the patient. Lungs sounds few scattered crackles Maintaining good O2 saturations in the 90s on room air. I discussed the assessment and plan of care with my nurse practitioner, Nimisha Mckeon. I attest to the above note as dictated by her.
--- NOTE | 2019-08-14 12:35 | PN ---
PROGRESS NOTE DATE OF SERVICE: 08/14/2019 REASON FOR FOLLOWUP: Pneumonia. INTERVAL HISTORY: The patient is currently afebrile. The patient is breathing comfortably. The patient denies having any chest pain, minimal cough. No nausea, no vomiting. No abdominal pain and no diarrhea. PHYSICAL EXAMINATION: Blood pressure 109/64 with a pulse of 82, temperature of 98.2, he is 91% on room air. General description is a middle-aged male, lying in bed in no . RESPIRATORY SYSTEM: Unlabored breathing, clear to auscultation anteriorly. HEART: S1, S2. Regular rate and rhythm. ABDOMEN: Soft, no tenderness. LABS: No new labs have been obtained. His white count was normal at 4.0, as of yesterday bronch culture with Mi albicans, likely colonizer. DIAGNOSTIC IMPRESSION AND PLAN: Patient admitted to the hospital with fall. This patient who did have a component of pneumonia, possible community-acquired, bronch culture has been negative for resistant pathogen. The patient did finish therapy with oral Augmentin for about a week and close outpatient followup. MMODL / IJN: [id number] /
[2019-08-14 16:50] LABS: Glucose,Whole Blood 212 mg/dL (75-99)
[2019-08-14] MEDS ORDERED: INSULN ASP PRT/INSULIN ASPART 100 UNIT/ML 10 ML VIAL SQ SCH (17:30)
[2019-08-14 20:09] VITALS: TEMP 98.1
[2019-08-14 20:38] LABS: Glucose,Whole Blood 245 mg/dL (75-99)
--- NOTE | 2019-08-14 22:35 | P.PN ---
Subjective Patient is a pleasant 44-year-old gentleman and is being admitted for DKA and bilateral pneumonia. Patient had a fall because of low blood pressure and not feeling well and fatigued. The patient previously was on Novolin 70-30 at 20 units every morning and 30 units every at bedtime and he used to follow-up with Dr. Craft however he stopped seeing Dr. vu and his PCP because he lost his insurance. Patient presents to emergency room because of passing out, hypoglycemic episodes, right chest wall pain, cough, increased difficulty breathing. Patient was found to have bilateral pna. chest x-ray of the ribs showed diffuse bilateral infiltrates, no pneumothorax, possibility of atypical pneumonia and neoplastic process could not be excluded. This was followed with the chest CTA, revealing no definite evidence of pulmonary embolism, extensive patchy and confluent airspace disease left greater than right, with increased consolidation in the left lower lobe and left upper lobe. Chest x-ray from 08/13/2019 showed improved orientation. on 08/20 patient underwent bronchoscopy with bronchoalveolar lavage, and cytology and biopsy are still pending Patient has been treated with antibiotics with Levaquin and Zosyn, he showed interval improvement and on the day of discharge he denies chest pain or dyspnea, he has little cough with no phlegm. He is walking with no difficulty and get up and go test is normal. He is tolerating diet well with regular bowel movement, no urinary complaints. No fever. Sugar is controlled with 102-251. also his insulin regimen has been switched to Levemir insulin 25 units at bedtime, however he needs 88 units of short-acting insulin yesterday, so we'll increase his Levemir to 28 units upon discharge pt was cleared by pulmonary for discharge today , although he has still pending test from his bronchoscopy like cytology, pt sugar is not controlled and it was more than 300-400 , we stopped his steroids and increased his levemir to 30 from 08/14/2019 pt is fully awake and alert, he denies new symptoms , no chest pain of dyspnea , no abd or urinary complaint , his sugar is still uncontrolled and he is still on iv fluid. today i discussed the case with the shirley/derick of the floor and she was telling me his levemir will not be covered as he has no medical insurance although he was telling on previous days he has some kind of week medical insurance. as a result we have to chance his insulin to 70:30 sc bid , and to keep monitoring his sugar. also he was encourage to f/u with the [facility] soon after discharge Objective - Vital Signs Vital signs: Vital Signs Temp 98.1 F 08/14/19 20:06 Pulse 83 08/14/19 20:06 Resp 14 08/14/19 20:06 BP 121/81 08/14/19 20:06 Pulse Ox 93 L 08/14/19 13:52 Intake & Output 08/14/19 08/14/19 08/15/19 06:59 18:59 06:59 Other: Voiding Method Toilet # Voids 2 3 - Exam GENERAL: The patient is alert and oriented x3, not in any acute distress. Well developed, well nourished. HEENT: Pupils are round and equally reacting to light. EOMI. No scleral icterus. No conjunctival pallor. Normocephalic, atraumatic. No pharyngeal erythema. No thyromegaly. CARDIOVASCULAR: S1 and S2 present. No murmurs, rubs, or gallops. PULMONARY: Chest is clear to auscultation, no wheezing or crackles. ABDOMEN: Soft, nontender, nondistended, normoactive bowel sounds. No palpable organomegaly. MUSCULOSKELETAL: No joint swelling or deformity. EXTREMITIES: No cyanosis, clubbing, or pedal edema. NEUROLOGICAL: Gross neurological examination did not reveal any focal deficits. SKIN: No rashes. - Labs CBC & Chem 7: 08/13/19 07:21 08/13/19 07:21 Labs: Abnormal Lab Results - Last 24 Hours (Table) 08/14/19 08/14/19 08/14/19 Range/Units 07:02 16:46 20:37 POC Glucose (mg/dL) 131 H 212 H 245 H (75-99) mg/dL Microbiology - Last 24 Hours (Table) 08/09/19 11:46 Blood Culture - Preliminary Blood No Growth after 120 hours 08/09/19 11:50 Blood Culture - Preliminary Blood No Growth after 120 hours 08/08/19 11:02 Blood Culture - Final Blood No Growth after 144 hours Assessment and Plan Assessment: Extensive Bilateral pneumonia Diabetic ketoacidosis on admission, resolved Diabetes mellitus with hyperglycemia Liver cirrhosis secondary to hepatitis C is and history of alcohol abuse. Patient is aware of his problem and he was to follow up with daiana Pacheco before Chronic Thrombocytopenia Multiple falls secondary to abnormal sugar level, hypotension and fatigue needs no medical insurance Plan: this is a pleasant 44 yo M who present with b/l pna and DKA , although he was compliant with his therapy as per pt at home. c/s antibiotic, follow up recommendation by pulmonary service. pt sugar is uncontrolled, change levemir to 30 u hs to insulin 70:30 15 u bid. and with ISS. stopped steroids pt is counseled extensively more than once about the improtance of follow up and adherence therapy and R/B/A are explained including but not limited to the risk of cancer , and he verbalized understanding and acceptance. Labs and medication were reviewed.. Continue same treatment. Continue with sy mptomatic treatment. Resume home medication. Monitor lytes and vitals. DVT and GI prophylaxis. Further recommendations of the clinical course of the patient DVT prophylaxis: Subcutaneous heparin GI Prophylaxis: Pepcid PT/OT: no need as pt is moving freely with no assistance , get up and go test is normal Prognosis is guarded
[2019-08-15] MEDS: SODIUM CHLORIDE 0.9% 1,000 ML IV SCH (02:56)
[2019-08-15 07:02] LABS: Glucose,Whole Blood 143 mg/dL (75-99)
[2019-08-15] MEDS: FAMOTIDINE 20 MG TAB PO SCH (07:22)
[2019-08-15] MEDS: LEVOFLOXACIN 750 MG TAB PO SCH (07:22)
[2019-08-15] MEDS: HEPARIN SODIUM,PORCINE 5,000 UNIT/ML 1 ML VIAL SQ SCH (07:23)
[2019-08-15] MEDS: INSULIN ASPART (NovoLOG) 100 UNIT/ML VIAL SQ SCH ×2 (07:23→13:37)
[2019-08-15] MEDS ORDERED: INSULN ASP PRT/INSULIN ASPART 100 UNIT/ML 10 ML VIAL SQ SCH ×3 (07:30→17:30)
[2019-08-15] MEDS: IPRATROPIUM-ALBUTEROL 3 ML NEB INHALATION SCH ×3 (07:45→15:30)
[2019-08-15 12:12] LABS: Glucose,Whole Blood 244 mg/dL (75-99)
--- NOTE | 2019-08-15 12:24 | PN ---
PROGRESS NOTE DATE OF SERVICE: 08/15/2019 REASON FOR FOLLOWUP: Pneumonia. INTERVAL HISTORY: The patient is currently afebrile. Patient is breathing comfortably. The patient denies having any chest pain or cough. No nausea or vomiting. No abdominal pain. No diarrhea. Anxious to go home. PHYSICAL EXAMINATION: Blood pressure 108/72 with a pulse of 73, temperature 98.1. He is 91% on room air. General description is a middle-aged male lying in bed in no distress. RESPIRATORY SYSTEM: Unlabored breathing, clear to auscultation. HEART: S1, S2. Regular rate and rhythm. ABDOMEN: Soft, no tenderness. LABS: Bronch cultures has been Mi likely colonizer. DIAGNOSTIC IMPRESSION AND PLAN: Patient admitted to the hospital diagnosed with pneumonia after the patient did have a syncopal episode with concern for possible aspiration etiology. The patient to finish therapy with short course of oral Augmentin. Prescription already been sent to the pharmacy. Continue with supportive care. MMODL / IJN: [id number] /
[2019-08-15 13:36] VITALS: BMI 25.2
[2019-08-15 14:19] VITALS: BP 109/69; PULSE 74; RESP 16
--- NOTE | 2019-08-15 21:08 | P.DS ---
Providers Date of admission: 08/08/19 10:48 Attending physician: Edwardo Conde Consults: 08/09/19 11:24 Consult Physician Routine Consulting Provider: Lissy Green Consult Reason/Comments: possible sepsis Do you want consulting provider notified?: Yes 08/09/19 11:26 Consult Physician Routine Consulting Provider: Evangelina Goetz Consult Reason/Comments: possible pneumonia, respiratory failure Do you want consulting provider notified?: Yes Primary care physician: Stated None Hospital Course: Diagnoses: Extensive Bilateral pneumonia, improving Diabetic ketoacidosis on admission, resolved Diabetes mellitus with hyperglycemia Liver cirrhosis secondary to hepatitis C is and history of alcohol abuse. Patient is aware of his problem and he was to follow up with nathalia Pacheco before Chronic Thrombocytopenia Multiple falls secondary to abnormal sugar level, hypotension and fatigue Lack of medical insurance Hospital course: Patient is a pleasant 44-year-old gentleman and is being admitted for DKA and bilateral pneumonia. Patient had a fall because of low blood pressure and not feeling well and fatigued. The patient previously was on Novolin 70-30 at 20 units every morning and 30 units every at bedtime and he used to follow-up with Dr. Craft however he stopped seeing Dr. uv and his PCP because he lost his insurance. Patient presents to emergency room because of passing out, h ypoglycemic episodes, right chest wall pain, cough, increased difficulty breathing. Patient was found to have bilateral pna. chest x-ray of the ribs showed diffuse bilateral infiltrates, no pneumothorax, possibility of atypical pneumonia and neoplastic process could not be excluded. This was followed with the chest CTA, revealing no definite evidence of pulmonary embolism, extensive patchy and confluent airspace disease left greater than right, with increased consolidation in the left lower lobe and left upper lobe. Chest x-ray from 08/13/2019 showed improved aeration. on 08/20 patient underwent bronchoscopy with bronchoalveolar lavage, and cytology was negative for malignant cells as per pathology report Patient has been treated with antibiotics with Levaquin and Zosyn, he showed interval improvement and on the day of discharge he denies chest pain or dyspnea, he has little cough with no phlegm. He is walking with no difficulty and get up and go test is normal. He is tolerating diet well with regular bowel movement, no urinary complaints. No fever. Sugar is controlled , he was on Levemir to 30 units however patient has no medical insurance coverage for his insulin therefore it was switched to insulin 70:30 at 15 units at night and 20 units in the morning as his sugar this morning was 145 and 244, although the patient states that he was taking 20 units in the morning and 30 units at night at home, sugar is controlled, however patient's wants to leave today rather than keep checking his sugar in house, patient was counseled to check his sugar 4 times at home and he agrees, we will check his sugar before each meals and at bedtime, patient was instructed to call 911 come to emergency room if his sugars more than 350 or less than 70 and he agrees. Also patient says that he has a glucometer and strips is provided and other accessories, insulin syringe, cotton swabs etc Patient was cleared for discharge by ID and pulmonary team's. Patient will be discharged on short course of oral Augmentin by ID team recommendation Problems and management plan were discussed with the patient and he verbalized understanding and acceptance Patient was found stable and can be discharged home however he needs follow-up as an outpatient. Patient was instructed to follow up with PCP within one week and patient agrees, patient states that he lost his insurance and he has no PCP to follow up with, [facility] and he agrees. Also patient was instructed to follow up with clinic assistant Dr. Trevino and to call and make appointment as well as Dr. Olvera for his diabetes mellitus and he agrees. Also patient agrees with pulmonary appointment on 08/22 at 1:45 PM and he says he'll follow-up. Risks including but not limited cancer are explained to the patient and he verbalized understanding Gen: patient is a AAOx3, no distress CVS: S1-S2, RRR, no murmur Lungs: B/L CTA, no wheezing Abdomen: soft, no distention, no tenderness, positive bowel sounds Extremity: no leg edema or induration Get up and go test: Within normal limits Neurological examination: No focal deficits Time spent more than 35 minutes Patient Condition at Discharge: Stable Plan - Discharge Summary Discharge Rx Participant: No New Discharge Prescriptions: New Amoxic-Pot Clav 875-125Mg [Augmentin 875-125] 1 tab PO Q12HR 7 Days #14 tablet Famotidine [Pepcid] 20 mg PO BID #14 tab Acetaminophen Tab [Tylenol] 650 mg PO Q6HR PRN tab PRN Reason: Mild Pain Or Fever > 100.5 Albuterol Inhaler [Ventolin Hfa Inhaler] 1 - 2 puff INHALATION RT-Q6H PRN #1 inhaler PRN Reason: Shortness Of Breath Or Wheezing Insuln Asp Prt/Insulin Aspart [NovoLOG MIX 70-30 VIAL] 20 unit SQ AC-BRKFST #1 vial Insuln Asp Prt/Insulin Aspart [NovoLOG MIX 70-30 VIAL] 15 unit SQ AC-SUPPER #1 vial Discontinued Insulin NPH Hum/Reg Insulin Hm [NovoLIN 70-30 100 UNIT/ML VIAL] 20 unit SQ QAM Insulin NPH Hum/Reg Insulin Hm [NovoLIN 70-30 100 UNIT/ML VIAL] 30 unit SQ HS Discharge Medication List Acetaminophen Tab [Tylenol] 650 mg PO Q6HR PRN tab 08/13/19 [Rx] Albuterol Inhaler [Ventolin Hfa Inhaler] 1 - 2 puff INHALATION RT-Q6H PRN #1 inhaler 08/13/19 [Rx] Amoxic-Pot Clav 875-125Mg [Augmentin 875-125] 1 tab PO Q12HR 7 Days #14 tablet 08/13/19 [Rx] Famotidine [Pepcid] 20 mg PO BID #14 tab 08/13/19 [Rx] Insuln Asp Prt/Insulin Aspart [NovoLOG MIX 70-30 VIAL] 15 unit SQ AC-SUPPER #1 vial 08/15/19 [Rx] Insuln Asp Prt/Insulin Aspart [NovoLOG MIX 70-30 VIAL] 20 unit SQ AC-BRKFST #1 vial 08/15/19 [Rx] Follow up Appointment(s)/Referral(s): Evangelina Goetz MD [STAFF PHYSICIAN] - 08/22/19 1:45 pm (Pulmonary.) Rufino Olvera MD [REFERRING] - 1 Week (Office would like you to call to make appointment. for your diabetes ) Nathalia Trevino MD [STAFF PHYSICIAN] - 1 Week (Office would like you to call and make appointment due to insurance. for your liver cirrhosis and related problems) [facility] [NON-STAFF] - 09/06/19 8:30 am (please bring Medication list, ID ([facility]) and income proof 3 pay stubs or tax return If insurance is approved, please call office to have appointment changed) Patient Instructions/Handouts: Pneumonia (DC), Diabetic Hyperglycemia (DC) Activity/Diet/Wound Care/Special Instructions: PNEUMONIA 1. Continue coughing and breathing exercises to help clear your lungs of secretions. 2. Sit upright during the day to promote lung expansion. Avoid lying flat. 3. Use incentive spirometer every hour to open your airways. 4. Wash your hands before taking your medications or using your nebulizer. 5. Drink clear liquids as directed, they can help loosen secretions. Avoid milk products, as these can make secretions thicker. 6. Do not smoke, or be around others who smoke. 7. Call your physician if your shortness of breath worsens, if you develop an increased fever greater than 101. Diet: Diabetic 1800 kcal per day Activity: Limited till you see your doctor Recommended to recheck your blood sugar 4 times a day, before each meal and at bedtime. Keep your results in a log book and bring it to your doctor on your appointment. If his sugars more than 350 or less than 70 please call 911 on come to emergency room. Discharge/Stand Alone Forms: Work/School Release Discharge Disposition: HOME SELF-CARE
[2019-08-16] MEDS ORDERED: INSULN ASP PRT/INSULIN ASPART 100 UNIT/ML 10 ML VIAL SQ SCH (07:30)
== END 2019-08-15 17:01 | disposition home or self-care (01) | DRG 871 ==
LOC: EC 08:40 → 3SCARD 10:48 → 4MS4W 08-10 21:39
PROVIDERS: ADMIT Internal Medicine; ATTEND Internal Medicine
PROC: 3E0234Z Introduction of Serum, Toxoid and Vaccine into Muscle, Percutaneous Approach (ICD-10-PCS; 2019-08-08)
PROC: 0BDH8ZX Extraction of Lung Lingula, Via Natural or Artificial Opening Endoscopic, Diagnostic (ICD-10-PCS; principal; 2019-08-10 12:00)
PROC: 0B9H8ZX Drainage of Lung Lingula, Via Natural or Artificial Opening Endoscopic, Diagnostic (ICD-10-PCS; 2019-08-10 12:00)
DX: A41.9 Sepsis, unspecified organism (principal); E11.10 Type 2 diabetes mellitus with ketoacidosis without coma; J96.01 Acute respiratory failure with hypoxia; J69.0 Pneumonitis due to inhalation of food and vomit; E87.1 Hypo-osmolality and hyponatremia; D70.9 Neutropenia, unspecified; E11.40 Type 2 diabetes mellitus with diabetic neuropathy, unspecified; E11.649 Type 2 diabetes mellitus with hypoglycemia without coma; E11.319 Type 2 diabetes mellitus with unspecified diabetic retinopathy without macular edema; K70.30 Alcoholic cirrhosis of liver without ascites; I08.1 Rheumatic disorders of both mitral and tricuspid valves; Z23 Encounter for immunization; R07.89 Other chest pain; E86.1 Hypovolemia; R29.6 Repeated falls; B19.20 Unspecified viral hepatitis C without hepatic coma; F10.21 Alcohol dependence, in remission; S00.81XA Abrasion of other part of head, initial encounter; Z79.4 Long term (current) use of insulin; Z87.01 Personal history of pneumonia (recurrent); Z98.890 Other specified postprocedural states; Z87.19 Personal history of other diseases of the digestive system; W19.XXXA Unspecified fall, initial encounter; Z80.0 Family history of malignant neoplasm of digestive organs; Z83.3 Family history of diabetes mellitus; D69.6 Thrombocytopenia, unspecified; Z59.7 Insufficient social insurance and welfare support
CPT/HCPCS: 31624; 31625; 36415; 70450; 70486; 71045; 71046; 71275; 80048; 80051; 80053; 80076; 81003; 82009; 82150; 82565; 82803; 82947; 83605; 83690; 83880; 84100; 84145; 84520; 85025; 85610; 85652; 85730; 86140; 86255; 87040; 87070; 87102; 87116; 87205; 87206; 87252; 87390; 87449; 87496; 87498; 87502; 87529; 87634; 87798; 88108; 88305; 89050; 90732; 93005; 93306; 94640; 94760; 96361; 96374; 96375; 99285